=== PATIENT | male | born 1990 | race Caucasian/White ===

== ENCOUNTER → 2021-10-03 12:39 | Outpatient (BNVA) | payer SELFPAY | PROVIDERS: Visit Provider Family Medicine | DX: T67.5XXA Heat exhaustion, unspecified, initial encounter (principal); X30.XXXA Exposure to excessive natural heat, initial encounter; R11.0 Nausea | CPT/HCPCS: 80053 ==

== ENCOUNTER 2022-02-05 09:25 | Emergency (ER) | payer SELFPAY ==
[2022-02-05 09:27] VITALS: BP 162/125; PULSE 92; RESP 15; TEMP 36.6; O2SAT 98; BMI 22.7
--- NOTE | 2022-02-05 09:33 | XRR_ITS ---
PROCEDURE INFORMATION: Exam: XR Chest Exam date and time: 02/05/2022 9:49 AM Age: 31 years old Clinical indication: Cough and dyspnea; Additional info: Dyspnea/cough TECHNIQUE: Imaging protocol: Radiologic exam of the chest. Views: 1 view. COMPARISON: No relevant prior studies available. FINDINGS: Lungs: Normal lung volumes. No interstitial or airspace opacities. Pleural spaces: No pleural effusion. No pneumothorax. Heart/Mediastinum: Normal heart size. Normal mediastinal contour. Midline trachea. Bones/joints: No acute abnormalities. XR/XR chest 1V portable [id number] IMPRESSION: No chest radiographic evidence of acute cardiopulmonary disease.
--- NOTE | 2022-02-05 09:42 | ECG_ITS ---
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 Measurements Intervals [place] Rate: 94 P: 74 RI: 134 QRS: 85 QRSD: 87 T: 20 QT: 337 QTc: 422 Interpretive Statements SINUS RHYTHM No previous ECG available for comparison Electronically Signed On 02-07-2022 23:04:24 CDT by China Elliott M.D. [id number]
--- NOTE | 2022-02-05 09:50 | ED_ITS ---
HPI - Alcohol General: Chief Complaint: Alcohol Stated Complaint: Racing heart Time Seen by Provider: 02/05/22 09:33 Source: patient Mode of arrival: ambulatory History of Present Illness: 31 yo male presents to the ER with compalints of ETOH abuse. He reports he drinks overs a fifth of vodka per day. His last drink was yesterday. He reports he feels like his heart is racing. MD complaint: alcohol dependence Last drink: Hours (ago) (12-15) Chronic alcohol use: Yes Recent trauma: No Associated symptoms: Reports nausea and vomiting; Deny abdominal pain, depression, diaphoresis, hematemesis, involuntary movements, melena, seizure-like activity or suicidal ideation Treatments prior to arrival: none Review of Systems Const: Denies: diaphoresis ENMT: Denies: throat pain, ear or mastoid pain, nasal discharge or nasal congestion Card: Denies: chest pain, edema, dyspnea on exertion or orthopnea Resp: Denies: dyspnea, productive cough or non-productive cough GI: Reports: nausea and vomiting; Denies: abdominal pain, hematemesis or melena : Denies: flank pain, dysuria, urinary frequency or urinary urgency Skin/Breast: Denies: rash or pruritus Neuro: Denies: seizure-like activity or involuntary movements Psych: Denies: depression or suicidal ideation PFSH ED PFSH: Medical History (Updated 02/05/22 @ 09:53 by Sudhir Fan DO) Alcohol abuse Heat exhaustion Social History (Updated 02/05/22 @ 09:54 by Sudhir Fan DO) Smoking and tobacco status: current every day smoker Alcohol intake: current Alcohol intake frequency: 3 or more drinks per day Alcohol type: hard liquor Physical Exam Const: GENERAL APPEARANCE: cooperative and comfortable ORIENTATION/CONSCIOUSNESS: Yes awake, Yes oriented to person, Yes oriented to place and Yes oriented to time HENMT: COMMON NORMALS: normocephalic, atraumatic and hearing grossly normal bilaterally HEAD & SCALP: normocephalic and atraumatic Resp: COMMON NORMALS: normal respiratory effort, No retractions, No use of accessory muscles and clear to auscultation bilaterally AUSCULTATION: clear to auscultation bilaterally Cardio: COMMON NORMALS: regular rate, regular rhythm and No murmurs present (Cardio) RATE: regular rate RHYTHM: regular rhythm GI: COMMON NORMALS: Soft to palpation and No hepatosplenomegaly present AUSCULTATION: Yes normoactive bowel sounds PALPATION: Yes Soft to palpation, No Tenderness to palpation present (GI), No Guarding due to palpation present (GI) and Yes No hepatosplenomegaly present Extremity: COMMON NORMALS: normal to inspection, capillary refill normal, no clubbing, cyanosis or edema, no calf tenderness and no pedal edema Neuro: SENSORIUM/ORIENTATION: Yes oriented to person, Yes oriented to place and Yes oriented to time Skin: COMMON NORMALS: no rashes or lesions noted GENERAL SKIN EXAM: no rashes or lesions noted Course Vital Signs: Vital signs: Vital Signs Temperature 97.9 F 02/05/22 09:27 Pulse Rate 81 02/05/22 10:30 Respiratory Rate 18 02/05/22 10:30 Blood Pressure 149/104 02/05/22 10:30 Pulse Oximetry 95 02/05/22 10:30 Oxygen Delivery Me thod 02/05/22 09:27 MDM - Alcohol Medical Decision Making Patient has no evidence of withdrawal at this time he tells me he plans to stop drinking. I recommend that he follow-up with AA or [facility] he does not appear very interested in pursuing that. We will complete his fluids discharge him home on a chlordiazepoxide taper. Increase p.o. fluids over the next several days. Medical Records I reviewed the patient's medical records. Lab Data I reviewed the patient's lab results. : 02/05/22 09:45 02/05/22 09:45 Radiology Impressions Chest X-Ray 02/05/22 09:33 IMPRESSION: No chest radiographic evidence of acute cardiopulmonary disease. Laboratory Results WBC 5.7 10^3/uL (4.0-10.0) 02/05/22 09:45 RBC 5.38 10^6/uL (4.1-5.3) H 02/05/22 09:45 Hgb 16.1 g/dL (11.7-16.6) 02/05/22 09:45 Hct 47.6 % (42.0-52.0) 02/05/22 09:45 MCV 88.5 fl (80-94) 02/05/22 09:45 MCH 29.9 pg (28.0-34.0) 02/05/22 09:45 MCHC 33.8 g/dL (30.0-36.0) 02/05/22 09:45 RDW 14.2 % (12.1-15.1) 02/05/22 09:45 Plt Count 244 10^3/cmm (130-400) 02/05/22 09:45 MPV 10.3 fL (7.4-10.4) 02/05/22 09:45 Neut % (Auto) 65.6 % 02/05/22 09:45 Lymph % (Auto) 22.2 % 02/05/22 09:45 [place] % (Auto) 10.5 % 02/05/22 09:45 Eos % (Auto) 0.2 % 02/05/22 09:45 Baso % (Auto) 1.1 % 02/05/22 09:45 Neut # (Auto) 3.75 10^3/uL (1.8-7.7) 02/05/22 09:45 Lymph # (Auto) 1.3 10^3/uL (0.8-4.8) 02/05/22 09:45 [place] # (Auto) 0.6 10^3/uL (0.2-0.9) 02/05/22 09:45 Eos # (Auto) 0.0 10^3/uL (0.0-0.8) 02/05/22 09:45 Baso # (Auto) 0.1 10^3/uL (0.0-0.1) 02/05/22 09:45 Nucleated RBC % (auto) 0 % 02/05/22 09:45 Nucleated RBCs # 0.0 /100WBC 02/05/22 09:45 Sodium 132 mmol/L (136-145) L 02/05/22 09:45 Potassium 4.1 mmol/L (3.5-5.1) 02/05/22 09:45 Chloride 94 mmol/L (98-107) L 02/05/22 09:45 Carbon Dioxide 20 mmol/L (22-29) L 02/05/22 09:45 Anion Gap 22.1 (5-19) H 02/05/22 09:45 BUN 14 mg/dL (6-20) 02/05/22 09:45 Creatinine 0.7 mg/dL (0.7-1.2) 02/05/22 09:45 GFR Calculation 129.9 mL/min (90-130) 02/05/22 09:45 Glucose 79 mg/dL (65-115) 02/05/22 09:45 Calculated Osmolality 273 mOsm/kg (285-295) L 02/05/22 09:45 Calcium 10.0 mg/dL (8.5-10.5) 02/05/22 09:45 Total Bilirubin 0.7 mg/dL (0.15-1.2) 02/05/22 09:45 AST 130 U/L (0-40) H 02/05/22 09:45 ALT 240 U/L (0-41) H 02/05/22 09:45 Alkaline Phosphatase 138 U/L (40-130) H 02/05/22 09:45 Total Protein 7.6 g/dL (6.6-8.7) 02/05/22 09:45 Albumin 4.7 g/dL (3.5-5.2) 02/05/22 09:45 Globulin 2.9 g/dL (1.3-4.6) 02/05/22 09:45 Lipase 20 U/L (13-60) 02/05/22 09:45 Ethyl Alcohol < 10 mg/dL (0-10) 02/05/22 09:45 Discharge Plan Discharge Patient Disposition: Home Clinical Impression: Alcohol abuse Prescriptions: New chlordiazepoxide HCl 25 mg capsule 25 mg PO TID Qty: 12 0RF Rx Instructions: 1 p.o. 3 times daily x2 days, 1 p.o. twice daily x2 days, 1 p.o. daily x2 days No Action ondansetron HCl 4 mg tablet 4 mg PO Q8H Qty: 14 0RF Discharge Orders: Discharge ED (Routine); Ordered 02/05/22 Ordered By: Sudhir Fan Discharge Diet: Usual diet Discharge Activity: Resume usual activity Patient Instructions: Abuse of Alcohol (ED), Opioid Safety, Pain Management Activity Restrictions/Additional Instructions: Recommend abstinence from alcohol. Also recommend follow-up with either alcoholics anonymous meetings or seek outpatient treatment through [facility]. Take the chlordiazepoxide taper as prescribed. Coding Level of Care Code ED Cyber Security Consultant for Angieg Fwd Exam Detailed
[2022-02-05 10:08] LABS: Basophils # 0.1 10^3/uL (0.0-0.1); Basophils % 1.1 %; Eosinophils % 0.2 %; Hematocrit 47.6 % (42.0-52.0); Hemoglobin 16.1 g/dL (11.7-16.6); Lymphocytes # 1.3 10^3/uL (0.8-4.8); Lymphocytes % 22.2 %; Mean Corpuscular HGB Conc 33.8 g/dL (30.0-36.0); Mean Corpuscular Hemoglobin 29.9 pg (28.0-34.0); Mean Corpuscular Volume 88.5 fl (80-94); Mean Platelet Volume 10.3 fL (7.4-10.4); Monocytes # 0.6 10^3/uL (0.2-0.9); Monocytes % 10.5 %; Neutrophils # 3.75 10^3/uL (1.8-7.7); Neutrophils % 65.6 %; Nucleated Red Blood Cells % 0 %; Platelet Count 244 10^3/cmm (130-400); Red Blood Count 5.38 10^6/uL (4.1-5.3); Red Cell Distribution Width 14.2 % (12.1-15.1); White Blood Count 5.7 10^3/uL (4.0-10.0)
[2022-02-05] MEDS: famotidine 20 mg/2 mL INJ 40 MG IVP (10:21)
[2022-02-05] MEDS: folic acid 1 MG, multivitamin inj 10 ML, thiamine 100 MG in sodium chloride 0.9% 1,000 ML 252.8 MG IV (10:22)
[2022-02-05] MEDS: sodium chloride 0.9% 1,000 ML 999 ML IV (10:22)
[2022-02-05 10:30] VITALS: BP 149/104; PULSE 81; RESP 18; O2SAT 95
[2022-02-05 10:31] LABS: Alanine Aminotransferase 240 U/L (0-41); Albumin Level 4.7 g/dL (3.5-5.2); Alkaline Phosphatase 138 U/L (40-130); Aspartate Amino Transferase 130 U/L (0-40); Blood Urea Nitrogen 14 mg/dL (6-20); Carbon Dioxide 20 mmol/L (22-29); Chloride 94 mmol/L (98-107); Globulin 2.9 g/dL (1.3-4.6); Glomerular Filtration Rate 129.9 mL/min (90-130); Glucose 79 mg/dL (65-115); Lipase 20 U/L (13-60); Osmolality Calculated 273 mOsm/kg (285-295); Sodium 132 mmol/L (136-145); Total Bilirubin 0.7 mg/dL (0.15-1.2); Total Protein 7.6 g/dL (6.6-8.7)
[2022-02-05 10:38] LABS: Alcohol Level < 10 mg/dL (0-10)
[2022-02-05 10:39] LABS: Anion Gap 22.1 (5-19)
[2022-02-05 10:40] LABS: Potassium 4.1 mmol/L (3.5-5.1)
[2022-02-05 11:15] VITALS: BP 143/85; PULSE 82; RESP 21; O2SAT 97
[2022-02-05 11:30] VITALS: BP 142/88; PULSE 77; RESP 16; O2SAT 98
[2022-02-05 11:45] VITALS: BP 135/85; PULSE 82; RESP 21; O2SAT 97
[2022-02-05 12:00] VITALS: BP 142/80; PULSE 82; RESP 20; O2SAT 97
== END 2022-02-05 12:14 | disposition home or self-care (01) ==
PROVIDERS: Emergency Provider Family Medicine
DX: F10.10 Alcohol abuse, uncomplicated (principal); Y90.0 Blood alcohol level of less than 20 mg/100 ml; F17.200 Nicotine dependence, unspecified, uncomplicated
CPT/HCPCS: 71045; 80053; 80307; 83690; 85025; 93005; 96360; 96361; 99284; J3411; J3490; J7030

== ENCOUNTER → 2022-09-14 13:58 | Outpatient (BNVA) | payer MEDICAID, SELFPAY | PROVIDERS: PCP Family Medicine Adult Medicine; Referring Provider Family Medicine; Visit Provider Orthopaedic Surgery | DX: M25.562 Pain in left knee (principal) | CPT/HCPCS: 73560; 73565 ==

== ENCOUNTER 2023-05-01 14:59 | Emergency (ER) | payer MEDICAID, SELFPAY ==
[2023-05-01 15:04] VITALS: BP 144/95; PULSE 113; RESP 16; TEMP 36.6; O2SAT 98; BMI 23.5
--- NOTE | 2023-05-01 15:44 | ECG_ITS ---
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 Measurements Intervals [place] Rate: 83 P: 56 DC: 152 QRS: 76 QRSD: 92 T: 43 QT: 362 QTc: 428 Interpretive Statements SINUS RHYTHM Compared to ECG 02/05/2022 09:42:13 No significant changes Electronically Signed On 05-02-2023 19:40:32 ACCOUNT RESOLUTION ANALYST by Ryan Heredia M.D. [id number]
[2023-05-01] MEDS: sodium chloride 0.9% 1,000 ML 999 ML IV (15:46)
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
[2023-05-01 15:50] VITALS: BP 142/104; PULSE 97; RESP 16; O2SAT 98
[2023-05-01 15:54] LABS: Basophils # 0.1 10^3/uL (0.0-0.1); Basophils % 1.4 %; Eosinophils % 0.3 %; Hematocrit 45.3 % (37-53); Lymphocytes # 1.8 10^3/uL (0.8-4.8); Lymphocytes % 27.4 %; Mean Corpuscular HGB Conc 34.9 g/dL (30-55); Mean Corpuscular Hemoglobin 31.2 pg (27-33); Mean Corpuscular Volume 89.3 fl (82-101); Mean Platelet Volume 9.9 fL (7.4-10.4); Monocytes # 0.6 10^3/uL (0.2-0.9); Monocytes % 8.6 %; Neutrophils # 4.04 10^3/uL (1.8-7.7); Neutrophils % 62.1 %; Nucleated Red Blood Cells % 0 %; Platelet Count 247 10^3/cmm (157-399); Red Blood Count 5.07 10^6/uL (3.85-5.65); Red Cell Distribution Width 12.6 % (12.1-15.1)
[2023-05-01 16:27] LABS: Alanine Aminotransferase 268 U/L (0-41); Albumin Level 4.7 g/dL (3.5-5.2); Alkaline Phosphatase 94 U/L (40-130); Anion Gap 17.9 (5-19); Aspartate Amino Transferase 142 U/L (0-40); Blood Urea Nitrogen 7 mg/dL (6-20); Calcium 9.7 mg/dL (8.5-10.5); Carbon Dioxide 24 mmol/L (22-29); Chloride 100 mmol/L (98-107); Globulin 2.4 g/dL (1.3-4.6); Glomerular Filtration Rate 154.2 mL/min (90-130); Glucose 117 mg/dL (65-115); Osmolality Calculated 285 mOsm/kg (285-295); Potassium 3.9 mmol/L (3.5-5.1); Sodium 138 mmol/L (136-145); Total Bilirubin 0.3 mg/dL (0.15-1.2); Total Protein 7.1 g/dL (6.6-8.7)
[2023-05-01 16:30] VITALS: BP 134/98; PULSE 98; RESP 16; O2SAT 97
[2023-05-01] MEDS: metoprolol tartrate 1 mg/1 mL SDV 5 mL 2.5 MG IVP (16:43)
--- NOTE | 2023-05-01 16:47 | PC.NURSE ---
Pt ambulatory to the bathroom, states he still feels a little light headed but much improved from earlier
[2023-05-01 17:14] VITALS: BP 139/100; PULSE 92; O2SAT 94
== END 2023-05-01 17:23 | disposition home or self-care (01) ==
PROVIDERS: Emergency Provider Physician Assistant; PCP Family Medicine
DX: R42 Dizziness and giddiness (principal); I10 Essential (primary) hypertension; Z72.0 Tobacco use
CPT/HCPCS: 80053; 85025; 93005; 96374; 99284; J3490; J7030

== ENCOUNTER 2023-05-08 10:13 | Emergency (ER) | payer MEDICAID, SELFPAY ==
[2023-05-08 10:14] VITALS: BP 143/103; PULSE 125; TEMP 36.8; O2SAT 97; BMI 23.5
[2023-05-08 10:19] VITALS: BP 150/110; O2SAT 97
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
[2023-05-08 10:39] LABS: Basophils # 0.1 10^3/uL (0.0-0.1); Basophils % 1.1 %; Hematocrit 48.7 % (37-53); Lymphocytes # 1.3 10^3/uL (0.8-4.8); Lymphocytes % 15.8 %; Mean Corpuscular HGB Conc 35.1 g/dL (30-55); Mean Corpuscular Hemoglobin 31.2 pg (27-33); Mean Corpuscular Volume 88.9 fl (82-101); Mean Platelet Volume 10.2 fL (7.4-10.4); Monocytes # 0.7 10^3/uL (0.2-0.9); Monocytes % 8.3 %; Neutrophils # 6.17 10^3/uL (1.8-7.7); Neutrophils % 74.7 %; Nucleated Red Blood Cells % 0 %; Platelet Count 311 10^3/cmm (157-399); Red Blood Count 5.48 10^6/uL (3.85-5.65); Red Cell Distribution Width 12.9 % (12.1-15.1); White Blood Count 8.27 10^3/uL (3.29-11.43)
[2023-05-08 10:55] LABS: Alanine Aminotransferase 226 U/L (0-41); Alkaline Phosphatase 95 U/L (40-130); Aspartate Amino Transferase 117 U/L (0-40); Blood Urea Nitrogen 9 mg/dL (6-20); Calcium 10.8 mg/dL (8.5-10.5); Carbon Dioxide 21 mmol/L (22-29); Chloride 96 mmol/L (98-107); Creatinine Clr Calc Pharmacy 140.6511; Globulin 3.2 g/dL (1.3-4.6); Glomerular Filtration Rate 129.1 mL/min (90-130); Glucose 105 mg/dL (65-115); Osmolality Calculated 279 mOsm/kg (285-295); Sodium 135 mmol/L (136-145); Total Bilirubin 0.5 mg/dL (0.15-1.2); Total Protein 8.2 g/dL (6.6-8.7)
[2023-05-08] MEDS: sodium chloride 0.9% 1,000 ML 999 ML IV (11:08)
[2023-05-08] MEDS: LORazepam 2 mg/mL INJ 10 mL MDV 1 MG IV (11:09)
[2023-05-08] MEDS: metoprolol tartrate 1 mg/1 mL SDV 5 mL 5 MG IVP (11:10)
[2023-05-08 11:17] LABS: Add Urine Microscopic? NO; Charge for UA Resulting for Rev
[2023-05-08 11:19] VITALS: BP 104/62
[2023-05-08 11:23] LABS: Bilirubin Urine Neg (Negative); Blood Urine Neg (Negative); Glucose Urine UA Norm (Normal); Ketones Urine 1+ (Negative); Nitrate Urine Negative (Negative); Protein Urine Neg (Negative); Urine Appearance Clear (CLEAR); Urine Color Yellow (Yellow); Urobilinogen Urine 1 mg/dL (Negative); pH Urine 8 (5-7)
[2023-05-08 11:24] LABS: Leukocyte Esterase Urine Negative (Negative); Sulfosalicylic Acid Urine Negative (Negative)
[2023-05-08 11:30] VITALS: BP 138/102; PULSE 99; O2SAT 96
[2023-05-08 11:31] LABS: Amphetamines Screen Urine Negative (Negative); Barbiturates Screen Urine Negative (Negative); Benzodiazepines Screen Urine Negative (Negative); Cocaine Screen Urine Negative (Negative); Opiate Screen Urine Negative (Negative); PCP Screen Urine Negative (Negative); THC Screen Urine Positive (Negative)
[2023-05-08 12:30] VITALS: BP 125/100
== END 2023-05-08 12:39 | disposition home or self-care (01) ==
PROVIDERS: Emergency Provider Physician Assistant; PCP Family Medicine
DX: I10 Essential (primary) hypertension (principal); F10.930 Alcohol use, unspecified with withdrawal, uncomplicated
CPT/HCPCS: 80053; 80306; 81003; 85025; 96374; 96375; 99284; J2060; J3490; J7030

== ENCOUNTER 2023-07-23 14:43 | Emergency (ER) | payer MEDICAID, SELFPAY ==
--- NOTE | 2023-07-23 14:43 | XRR_ITS ---
PROCEDURE INFORMATION: Exam: XR Right Ankle Exam date and time: 07/23/2023 2:53 PM Age: 32 years old Clinical indication: Injury or trauma; Other: Turned RT ankle; Sprain or strain; Right TECHNIQUE: Imaging protocol: Radiologic exam of the right ankle. Views: 3 or more views. COMPARISON: No relevant prior studies available. FINDINGS: Bones/joints: Normal. Soft tissues: Normal. XR/XR ankle RT min 3V* [id number] IMPRESSION: No acute findings.
[2023-07-23 14:45] VITALS: PULSE 86; RESP 17; TEMP 36.6; O2SAT 96; BMI 22.7
--- NOTE | 2023-07-23 15:27 | XRR_ITS ---
PROCEDURE INFORMATION: Exam: XR Right Foot Exam date and time: 07/23/2023 3:31 PM Age: 32 years old Clinical indication: Injury or trauma; Other: Turned RT foot; Sprain or strain; Right TECHNIQUE: Imaging protocol: Radiologic exam of the right foot. Views: 3 or more views. COMPARISON: CR (LOW EXM, ) 07/23/2023 2:53 PM FINDINGS: Bones/joints: Normal. Soft tissues: Normal. XR/XR foot RT min 3V* [id number] IMPRESSION: No acute findings.
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
[2023-07-23] MEDS: HYDROcodone-acetaminophen 5-325 mg Tablet 1 TAB PO (16:06)
--- NOTE | 2023-07-23 16:11 | PC.NURSE ---
PATIENT STATES HE DOES NOT WANT THE SPLINT OR CRUTCHES. NURSE EDUCATED ON REFUSAL AND PATIENT VERBALIZED UNDERSTANDING. PATIENT STATES HE JUST DOES NOT WANT TO IMPEDE ON HIS CAREER.
--- NOTE | 2023-07-24 07:29 | DCPLANNER ---
A message was sent to podiatry on 07/24/23 at 0729. [facility] to contact patient for appt.
== END 2023-07-23 16:22 | disposition home or self-care (01) ==
PROVIDERS: Emergency Provider Emergency Medicine; PCP Family Medicine
DX: S93.401A Sprain of unspecified ligament of right ankle, initial encounter (principal); S96.911A Strain of unspecified muscle and tendon at ankle and foot level, right foot, initial encounter; F17.210 Nicotine dependence, cigarettes, uncomplicated; I10 Essential (primary) hypertension; X50.1XXA Overexertion from prolonged static or awkward postures, initial encounter
CPT/HCPCS: 73610; 73630; 99283

== ENCOUNTER 2023-07-24 14:18 | Emergency (ER) | payer MEDICAID, SELFPAY ==
[2023-07-24 14:25] VITALS: BP 133/94; PULSE 97; RESP 16; TEMP 36.9; O2SAT 97; BMI 22.7
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
[2023-07-24] MEDS: HYDROcodone-acetaminophen 5-325 mg Tablet 1 TAB PO (15:29)
--- NOTE | 2023-07-25 15:20 | PC.SOCIAL ---
Ortho Referral Referral to clinic at this time. Clinic to contact patient with appt date/time.
== END 2023-07-24 15:39 | disposition home or self-care (01) ==
PROVIDERS: Emergency Provider Emergency Medicine; PCP Family Medicine
DX: S93.401A Sprain of unspecified ligament of right ankle, initial encounter (principal); S96.911A Strain of unspecified muscle and tendon at ankle and foot level, right foot, initial encounter; I10 Essential (primary) hypertension; Z72.0 Tobacco use; X50.1XXA Overexertion from prolonged static or awkward postures, initial encounter
CPT/HCPCS: 99283; E0114

== ENCOUNTER → 2023-07-26 08:05 | Outpatient (BNVA) | payer MEDICAID, SELFPAY | PROVIDERS: PCP Family Medicine; Visit Provider Podiatrist Foot & Ankle Surgery | DX: V29.39XA Other motorcycle (driver) (passenger) injured in unspecified nontraffic accident, initial encounter (principal); S99.921A Unspecified injury of right foot, initial encounter | CPT/HCPCS: 73630 ==

== ENCOUNTER 2023-08-01 13:36 | Outpatient (CLI) | payer MEDICAID, SELFPAY ==
--- NOTE | 2023-08-01 14:00 | MR_ITS ---
WS: [id number] MRI RIGHT FOOT WITHOUT CONTRAST. COMPARISON: 07/26/2023 Multiplanar, multisequence imaging is performed without contrast. Numerous signal abnormalities are noted within the midfoot. Marrow edema and abnormal signal in the m idfoot involves the medial, intermediate and lateral cuneiforms along with the cuboid. Additional mar row edema involving the proximal second, third and fourth metatarsals. There is loss of the normal ov erlying cortex and I suspect there are several fractures along the tarsometatarsal articulation. High ly suspicious for fractures involving the second through fourth metatarsal bases. There is also abnormal signal along the Lisfranc ligament. The dorsal band is not visualized as a sep arate structure. There is intermediate increased T2 signal in the dorsal band. Abnormal signal is mor e distinct involving the interosseous band. There does appear to be a tear. The tear extends into the plantar portion of the ligament. There is a large amount of soft tissue edema particularly over the dorsal surface of the foot. There is focal artifact from metallic foreign body between the first and second toes. IMPRESSION: 1. Significant injury within the midfoot along the Lisfranc articulation. 2. There is extensive marrow edema involving all 3 cuneiforms, the cuboid and the second through fou rth proximal metatarsals. Fractures are identified in the proximal metatarsals. CT evaluation of the foot would better define the fracture distribution more specifically. 3. Abnormal signal in all 3 bands of the Lisfranc ligament. The dorsal band is small caliber with on ly intermediate signal. More significant tears involving the intraosseous band in the plantar band. 4. Large amount of soft tissue edema surrounding the midfoot.
== END 2023-08-01 13:37 | disposition home or self-care (01) ==
LOC: RAD 13:36
PROVIDERS: PCP Family Medicine; Visit Provider Podiatrist Foot & Ankle Surgery
DX: S99.921A Unspecified injury of right foot, initial encounter (principal); S93.621A Sprain of tarsometatarsal ligament of right foot, initial encounter; V29.39XA Other motorcycle (driver) (passenger) injured in unspecified nontraffic accident, initial encounter; S92.321A Displaced fracture of second metatarsal bone, right foot, initial encounter for closed fracture; S92.331A Displaced fracture of third metatarsal bone, right foot, initial encounter for closed fracture; S92.341A Displaced fracture of fourth metatarsal bone, right foot, initial encounter for closed fracture
CPT/HCPCS: 73718

== ENCOUNTER 2023-08-04 05:39 | Day surgery (SDC) | payer MEDICAID, SELFPAY ==
[2023-08-04] VITALS (11 sets, daily range): BP systolic 129–159; BP diastolic 88–114; PULSE 80–91; RESP 12–18; TEMP 36.7–37.2; O2SAT 92–96; BMI 22.7
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
[2023-08-04] MEDS: sodium chloride 0.9% 1,000 ML 30 ML IV (06:09)
[2023-08-04] MEDS: CELEcoxib 200 mg Capsule 400 MG PO (06:09)
[2023-08-04] MEDS: pregabalin 150 mg Capsule 300 MG PO (06:11)
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
--- NOTE | 2023-08-04 06:36 | P.HPUD_ITS ---
Surgery/Procedure H&P Update DATE OF PROCEDURE: August 04, 2023 DATE H&P PERFORMED: 08/01/23 H&P UPDATE INFORMATION: I have reviewed H&P completed within last 30 days, I have examined patient prior to procedure, No changes to prior documentation and [place] [facility] [place] indicated PREOP DIAGNOSIS: Lisfranc fracture, third and fourth metatarsal fracture all right foot. PLANNED PROCEDURE: Operation Date: 08/04/23 07:00 Proposed Procedures p Arthrodesis Foot midfoot right(Right) - Macho Morfin DPM s ORIF Metatarsal/ right third metatarsal fracture and right fourth metatarsal fracture(Right) - Macho Morfin DPM
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
[2023-08-04] MEDS: clindamycin 600 MG/50 ML PREMIX 100 MG IV (07:07)
[2023-08-04] MEDS: BUPivacaine 0.5% INJ 30 mL INJECTION (07:56)
[2023-08-04] MEDS: BUPivacaine liposome 13.3 mg/mL SDV 10 mL 266 MG INJECTION (07:57)
[2023-08-04] MEDS: fentaNYL 50 mcg/mL INJ 2mL IVP (08:45)
[2023-08-04] MEDS: HYDROcodone-acetaminophen 10-325 mg Tablet 1 TAB PO (09:14)
--- NOTE | 2023-08-04 09:50 | ANE.PACU2 ---
Inpatient post-anesthesia follow up: Vital signs: Temperature 98.2 F Pulse Rate 84 Respiratory Rate 16 Blood Pressure 146/97 Pulse Oximetry 95 Oxygen Delivery Me thod Room Air Oxygen Flow Rate Fraction of Inspir ed Oxygen Hydration adequate: Yes Nausea and vomiting: No Mental status: Baseline Additional Comments: no apparent anesthetic complications noted
--- NOTE | 2023-08-04 10:10 | W.PM.BPON ---
Date of Procedure: 06/30/23 Surgeon: Macho Morfin DPM Telecommunications Repairer(s): Chuck ABREU Procedure(s) performed: Right midfoot fusion, right third and fourth metatarsal fracture ORIF. Findings of the procedure(s): Lisfranc fracture dislocation, fracture third and fourth metatarsal right foot. Estimated blood loss: 5 mL Specimen(s) removed: No specimens Post-operative diagnosis: Third and fourth metatarsal fracture right foot. Right foot Lisfranc dislocation. No complications with anesthesia or surgery.
== END 2023-08-04 09:40 | disposition home or self-care (01) ==
PROVIDERS: PCP Family Medicine; Visit Provider Podiatrist Foot & Ankle Surgery
PROC: (CPT 28740; principal; 2023-08-04 07:00)
PROC: (CPT 28485; 2023-08-04 07:00)
DX: S92.334A Nondisplaced fracture of third metatarsal bone, right foot, initial encounter for closed fracture (principal); S92.341A Displaced fracture of fourth metatarsal bone, right foot, initial encounter for closed fracture; X50.1XXA Overexertion from prolonged static or awkward postures, initial encounter; J44.9 Chronic obstructive pulmonary disease, unspecified; F17.210 Nicotine dependence, cigarettes, uncomplicated; I10 Essential (primary) hypertension
CPT/HCPCS: 28485 ×2; 28730; 73620; 76000; C1713; C9290; J1100; J2250; J2405; J2704; J3010; J3490; J7030

== ENCOUNTER → 2023-08-17 08:05 | Outpatient (BNVA) | payer SELFPAY | PROVIDERS: PCP Family Medicine; Visit Provider Podiatrist Foot & Ankle Surgery | DX: Z98.890 Other specified postprocedural states (principal); S92.334D Nondisplaced fracture of third metatarsal bone, right foot, subsequent encounter for fracture with routine healing; S92.344D Nondisplaced fracture of fourth metatarsal bone, right foot, subsequent encounter for fracture with routine healing; M25.374 Other instability, right foot; X58.XXXD Exposure to other specified factors, subsequent encounter | CPT/HCPCS: 73630 ==

== ENCOUNTER → 2023-08-31 14:12 | Outpatient (BNVA) | payer SELFPAY | PROVIDERS: PCP Family Medicine; Visit Provider Podiatrist Foot & Ankle Surgery | DX: Z98.890 Other specified postprocedural states (principal); S92.334D Nondisplaced fracture of third metatarsal bone, right foot, subsequent encounter for fracture with routine healing; S92.344D Nondisplaced fracture of fourth metatarsal bone, right foot, subsequent encounter for fracture with routine healing; M25.374 Other instability, right foot; X58.XXXD Exposure to other specified factors, subsequent encounter | CPT/HCPCS: 73630 ==

== ENCOUNTER → 2023-09-14 13:06 | Outpatient (BNVA) | payer SELFPAY | PROVIDERS: PCP Family Medicine; Visit Provider Podiatrist Foot & Ankle Surgery | DX: Z98.890 Other specified postprocedural states (principal) | CPT/HCPCS: 73630 ==

== ENCOUNTER → 2023-09-27 10:54 | Outpatient (BNVA) | payer SELFPAY | PROVIDERS: PCP Family Medicine; Visit Provider Podiatrist Foot & Ankle Surgery | DX: Z98.890 Other specified postprocedural states (principal) | CPT/HCPCS: 73630 ==

== ENCOUNTER 2024-07-26 18:25 | Emergency (ER) | payer SELFPAY ==
[2024-07-26 18:32] VITALS: BP 124/87; PULSE 88; RESP 18; TEMP 36.7; O2SAT 95; BMI 21.9
[2024-07-26 18:44] LABS: Glucose Point of Care 119 mg/dL (70-110)
--- NOTE | 2024-07-26 18:58 | PC.NURSE ---
Nurse Lorena RN notified of patient's presentation, such as dizziness, shaking, and last alcoholic beverage consumed, as well as patient's arrival to room.
--- NOTE | 2024-07-26 19:27 | CTR_ITS ---
PROCEDURE INFORMATION: Exam: CTA Head With Contrast, Arteriography Exam date and time: 07/26/2024 7:49 PM Age: 33 years old Clinical indication: Numbness and visual disturbance; Other visual defect; Prior surgery; Surgery date: 6+ months; C/O RT eye blurriness with facial numbness and hypertension. History of c1 fracture with halo fixation. ; Additional info: R eye blurry vision, R sided numbness, nih 2 TECHNIQUE: Imaging protocol: Computed tomographic angiography of the head with contrast. Exam focused on the arteries. 3D rendering (Not supervised by radiologist): MIP and/or 3D reconstructed images were created by the technologist. Radiation optimization: All CT scans at this facility use at least one of these dose optimization techniques: automated exposure control; mA and/or kV adjustment per patient size (includes targeted exams where dose is matched to clinical indication); or iterative reconstruction. Contrast material: OMNI 350; Contrast volume: 100 ml; Contrast route: INTRAVENOUS (IV); COMPARISON: No relevant prior studies available. RADIATION DOSE METRICS: Total DLP (mGy-cm): 1010.72 FINDINGS: ANTERIOR CIRCULATION: Right internal carotid artery: Intracranial segment is patent with no significant stenosis. No aneurysm. Right middle cerebral artery: No occlusion or significant stenosis. No aneurysm. Right anterior cerebral artery: No occlusion or significant stenosis. No aneurysm. Left internal carotid artery: Intracranial segment is patent with no significant stenosis. No aneurysm. Left middle cerebral artery: No occlusion or significant stenosis. No aneurysm. Left anterior cerebral artery: No occlusion or significant stenosis. No aneurysm. POSTERIOR CIRCULATION: Right vertebral artery: No occlusion or significant stenosis. No aneurysm. Left vertebral artery: No occlusion or significant stenosis. No aneurysm. Basilar artery: No occlusion or significant stenosis. No aneurysm. Right posterior cerebral artery: No occlusion or significant stenosis. No aneurysm. Left posterior cerebral artery: No occlusion or significant stenosis. No aneurysm. Brain: No definite mass, mass effect, or midline shift. Cerebral ventricles: No ventriculomegaly. Bones/joints: Unremarkable. No acute fracture. Soft tissues: Unremarkable. PROCEDURE INFORMATION: Exam: CTA Neck With Contrast Exam date and time: 07/26/2024 7:49 PM Age: 33 years old Clinical indication: Numbness and visual disturbance; Other visual defect; Prior surgery; Surgery date: 6+ months; C/O RT eye blurriness with facial numbness and hypertension. History of c1 fracture with halo fixation. ; Additional info: R eye blurry vision, R sided numbness, nih 2 TECHNIQUE: Imaging protocol: Computed tomographic angiography of the neck with contrast. Exam focused on the cervical segments of the vasculature. 3D rendering (Not supervised by radiologist): MIP and/or 3D reconstructed images were created by the technologist. Radiation optimization: All CT scans at this facility use at least one of these dose optimization techniques: automated exposure control; mA and/or kV adjustment per patient size (includes targeted exams where dose is matched to clinical indication); or iterative reconstruction. Contrast material: OMNI 350; Contrast volume: 100 ml; Contrast route: INTRAVENOUS (IV); COMPARISON: CR XR chest 1V portable [id number] 02/05/2022 9:49 AM RADIATION DOSE METRICS: Total DLP (mGy-cm): 1010.72 FINDINGS: Right common carotid artery: No stenosis. No dissection or occlusion. Right internal carotid artery: No stenosis of the extracranial segment. No dissection or occlusion. Right external carotid artery: No occlusion or stenosis of the origin. Left common carotid artery: No stenosis. No dissection or occlusion. Left internal carotid artery: No stenosis of the extracranial segment. No dissection or occlusion. Left external carotid artery: No occlusion or stenosis of the origin. Right vertebral artery: No stenosis. No dissection or occlusion. Left vertebral artery: No stenosis. No dissection or occlusion. Soft tissues: Normal. No significant soft tissue swelling. Bones/joints: No acute fracture. CT/CT angio headneck* [id number] IMPRESSION: No large vessel stenosis or occlusion. IMPRESSION: No stenosis or occlusion. REFERENCES: NASCET CRITERIA. The degree of stenosis in the cervical segment of the internal carotid artery is based on NASCET criteria. Normal is no stenosis. Mild is less than 50% stenosis. Moderate is 50-69% stenosis. Severe is 70% to 99% stenosis. Total occlusion is no detectable patent lumen.
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
[2024-07-26 19:51] LABS: Basophils # 0.1 10^3/uL (0.0-0.1); Basophils % 1.3 %; Eosinophils # 0.1 10^3/uL (0.0-0.8); Eosinophils % 1.9 %; Hematocrit 43.2 % (37-53); Lymphocytes # 2.2 10^3/uL (0.8-4.8); Lymphocytes % 47.3 %; Mean Corpuscular HGB Conc 33.8 g/dL (30-55); Mean Corpuscular Hemoglobin 31.3 pg (27-33); Mean Corpuscular Volume 92.7 fl (82-101); Mean Platelet Volume 10.5 fL (7.4-10.4); Monocytes # 0.6 10^3/uL (0.2-0.9); Monocytes % 12.3 %; Neutrophils # 1.72 10^3/uL (1.8-7.7); Nucleated Red Blood Cells % 0 %; Platelet Count 191 10^3/cmm (157-399); Red Blood Count 4.66 10^6/uL (3.85-5.65); Red Cell Distribution Width 13.1 % (12.1-15.1); White Blood Count 4.65 10^3/uL (3.29-11.43)
[2024-07-26] MEDS: iohexol 350 mg/mL 500 mL Btl (per mL) IV (19:52)
[2024-07-26 20:07] LABS: Alanine Aminotransferase 284 U/L (0-41); Albumin Level 4.1 g/dL (3.5-5.2); Alcohol Level 271 mg/dL (0-10); Alkaline Phosphatase 115 U/L (40-130); Anion Gap 19.5 (5-19); Aspartate Amino Transferase 152 U/L (0-40); Blood Urea Nitrogen 9 mg/dL (6-20); Calcium 8.9 mg/dL (8.5-10.5); Carbon Dioxide 23 mmol/L (22-29); Chloride 105 mmol/L (98-107); Creatinine Clr Calc Pharmacy 158.1349; Globulin 2.6 g/dL (1.3-4.6); Glomerular Filtration Rate 153.3 mL/min (90-130); Glucose 98 mg/dL (65-115); Osmolality Calculated 297 mOsm/kg (285-295); Potassium 3.5 mmol/L (3.5-5.1); Sodium 144 mmol/L (136-145); Total Bilirubin 0.2 mg/dL (0.15-1.2); Total Protein 6.7 g/dL (6.6-8.7)
[2024-07-26] MEDS: sodium chloride 0.9% 1,000 ML 999 ML IV (20:10)
[2024-07-26 20:17] VITALS: BP 118/94; PULSE 71; O2SAT 93
[2024-07-26 20:22] LABS: Amphetamines Screen Urine Negative (Negative); Barbiturates Screen Urine Negative (Negative); Benzodiazepines Screen Urine Negative (Negative); Cocaine Screen Urine Negative (Negative); Opiate Screen Urine Negative (Negative); PCP Screen Urine Negative (Negative); THC Screen Urine Positive (Negative)
[2024-07-26 21:32] VITALS: BP 118/85; PULSE 69; RESP 16; O2SAT 94
[2024-07-26 21:54] VITALS: BP 118/85; PULSE 80; RESP 16; O2SAT 95
== END 2024-07-26 21:53 | disposition home or self-care (01) ==
PROVIDERS: Emergency Provider Emergency Medicine; PCP Family Medicine
DX: H53.8 Other visual disturbances (principal); R20.2 Paresthesia of skin; F10.129 Alcohol abuse with intoxication, unspecified; Y90.8 Blood alcohol level of 240 mg/100 ml or more; F12.90 Cannabis use, unspecified, uncomplicated; Z72.0 Tobacco use; I10 Essential (primary) hypertension
CPT/HCPCS: 36416; 70496; 70498; 80053; 80306; 80307; 82962; 85025; 99284; J7030

== ENCOUNTER 2024-07-31 10:25 | Inpatient (IN) | payer SELFPAY ==
[2024-07-31 10:30] VITALS: BP 129/92; PULSE 82; TEMP 36.6; O2SAT 99; BMI 23.5
--- NOTE | 2024-07-31 10:38 | ECG_ITS ---
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 Measurements Intervals [place] Rate: 77 P: 128 IN: 142 QRS: 132 QRSD: 97 T: -35 QT: 365 QTc: 415 Interpretive Statements SINUS RHYTHM LEFT POSTERIOR FASCICULAR BLOCK [QRS AXIS > 109, INFERIOR Q] NONSPECIFIC T-WAVE ABNORMALITY Compared to ECG 05/01/2023 16:06:42 Left posterior fascicular block now present T-wave abnormality now present Electronically Signed On 07-31-2024 21:25:25 CDT by Ryan Heredia M.D. [email or web address]
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
[2024-07-31 11:19] LABS: Bilirubin Urine 1+ (Negative); Blood Urine Negative (Negative); Glucose Urine UA Negative (Normal); Ketones Urine 2+ (Negative); Leukocyte Esterase Urine Negative (Negative); Nitrate Urine Negative (Negative); Protein Urine 1+ (Negative); Specific Gravity, Urine 1.024 (1.005-1.030); Urine Appearance Clear (CLEAR)
[2024-07-31 11:24] LABS: Bacteria Urine None Seen /hpf; Hyaline Casts Urine 17.37 /lpf; RBC Urine 0-2 /hpf (0-2); Squamous Epithelial Cell Urine 0-5 /hpf (0-5); WBC Urine 0-5 /hpf (0-5)
[2024-07-31 11:25] LABS: UA Slide Review UA Slide Review Perf; Urine Color Dark Yellow (Yellow)
[2024-07-31 11:26] LABS: Add Urine Culture? No; Amphetamines Screen Urine Negative (Negative); Barbiturates Screen Urine Negative (Negative); Benzodiazepines Screen Urine Negative (Negative); Cocaine Screen Urine Negative (Negative); Opiate Screen Urine Negative (Negative); PCP Screen Urine Negative (Negative); THC Screen Urine Positive (Negative)
[2024-07-31 11:36] LABS: Basophils # 0.1 10^3/uL (0.0-0.1); Basophils % 1.7 %; Eosinophils % 0.6 %; Hematocrit 44.7 % (37-53); Lymphocytes # 1.3 10^3/uL (0.8-4.8); Lymphocytes % 25.9 %; Mean Corpuscular Hemoglobin 31.7 pg (27-33); Mean Corpuscular Volume 93.3 fl (82-101); Mean Platelet Volume 10.5 fL (7.4-10.4); Monocytes # 0.7 10^3/uL (0.2-0.9); Monocytes % 14.1 %; Neutrophils # 2.78 10^3/uL (1.8-7.7); Neutrophils % 57.5 %; Nucleated Red Blood Cells % 0 %; Platelet Count 226 10^3/cmm (157-399); Red Blood Count 4.79 10^6/uL (3.85-5.65); Red Cell Distribution Width 13.1 % (12.1-15.1); White Blood Count 4.83 10^3/uL (3.29-11.43)
[2024-07-31 11:48] LABS: INR 0.96 (0.8-1.2)
[2024-07-31 12:06] LABS: Acetaminophen < 5.0 ug/mL (10-30); Alanine Aminotransferase 242 U/L (0-41); Albumin Level 4.4 g/dL (3.5-5.2); Alcohol Level 146 mg/dL (0-10); Alkaline Phosphatase 92 U/L (40-130); Anion Gap 22.6 (5-19); Aspartate Amino Transferase 174 U/L (0-40); Blood Urea Nitrogen 12 mg/dL (6-20); Carbon Dioxide 23 mmol/L (22-29); Chloride 97 mmol/L (98-107); Creatinine Clr Calc Pharmacy 139.3242; Globulin 2.8 g/dL (1.3-4.6); Glomerular Filtration Rate 128.3 mL/min (90-130); Glucose 80 mg/dL (65-115); Lipase 51 U/L (13-60); Osmolality Calculated 287 mOsm/kg (285-295); Potassium 3.6 mmol/L (3.5-5.1); Salicylate < 0.3 mg/dL (3-10); Sodium 139 mmol/L (136-145); Total Bilirubin 0.8 mg/dL (0.15-1.2); Total Protein 7.2 g/dL (6.6-8.7)
[2024-07-31 12:54] VITALS: RESP 18
[2024-07-31] MEDS: LORazepam 1 mg Tablet PO (12:54)
--- NOTE | 2024-07-31 13:44 | PC.NURSE ---
report called to Yaya in [facility], no further questions.
[2024-07-31] MEDS: lidocaine 2% viscous 15 ML, aluminum-mag hydrox-simethicon 30 ML, sucralfate oral liq 1 GM PO (13:59)
[2024-07-31 15:23] VITALS: BP 130/91; PULSE 89; RESP 18; TEMP 36.6; O2SAT 98
[2024-07-31] MEDS: acetaminophen 325 mg Tablet 650 MG PO (15:45)
[2024-07-31 16:00] VITALS: BP 129/84; PULSE 69; RESP 18; TEMP 37.1; O2SAT 97
[2024-07-31] MEDS: LORazepam 2 mg Tablet PO ×2 (16:25→20:22)
[2024-07-31] MEDS: amlodipine 5 mg Tablet PO (16:25)
[2024-07-31] MEDS: calcium carbonate 500 mg Chew Tablet 1000 MG PO (16:26)
--- NOTE | 2024-07-31 16:26 | PC.NURSE ---
pt states he does not want inpatient rehab for alcohol, states he doesn't want to miss a lot of work. he thinks that I am so disgusted with myself that once I get over the initial detox I should be fine.
[2024-07-31 18:00] VITALS: RESP 18
[2024-07-31 20:00] VITALS: BP 122/74; PULSE 88; RESP 18; TEMP 37.2; O2SAT 95
[2024-08-01] VITALS: BP 165/94; PULSE 96; RESP 16; O2SAT 96
[2024-08-01 04:00] VITALS: BP 143/97; PULSE 104; RESP 18; O2SAT 97
[2024-08-01] MEDS: hyDROXYzine 25 mg Capsule 50 MG PO (04:50)
[2024-08-01 08:00] VITALS: BP 144/89; PULSE 117; RESP 17; TEMP 36.6; O2SAT 96
[2024-08-01] MEDS: thiamine 100 mg Tablet PO (08:16)
[2024-08-01] MEDS: LORazepam 2 mg Tablet PO (08:16)
[2024-08-01] MEDS: metoprolol tartrate 25 mg Tablet PO (08:16)
[2024-08-01] MEDS: multivitamin therapeutic Tablet 1 TAB PO (08:16)
[2024-08-01] MEDS: folic acid 1 mg Tablet PO (08:16)
[2024-08-01] MEDS: amlodipine 5 mg Tablet PO (08:16)
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
[2024-08-01 12:00] VITALS: BP 132/93; PULSE 96; RESP 18; TEMP 36.9; O2SAT 97
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
[2024-08-01 13:35] VITALS: BP 132/93; PULSE 106; RESP 18; TEMP 36.9; O2SAT 97
== END 2024-08-01 14:49 | disposition home or self-care (01) | DRG 897 ==
LOC: ER 12:43 → NP 13:29
PROVIDERS: Admitting Provider Psychiatry & Neurology Psychiatry; Emergency Provider Emergency Medicine; PCP Family Medicine; Visit Provider Psychiatry & Neurology Psychiatry
DX: F10.229 Alcohol dependence with intoxication, unspecified (principal); F10.239 Alcohol dependence with withdrawal, unspecified; Y90.6 Blood alcohol level of 120-199 mg/100 ml; I10 Essential (primary) hypertension; F17.210 Nicotine dependence, cigarettes, uncomplicated
CPT/HCPCS: 36415; 80053; 80306; 80307; 81001; 83690; 84443; 85025; 85610; 85730; 93005; 97165; 99285; J9999

== ENCOUNTER 2024-08-31 01:22 | Emergency (ER) | payer SELFPAY ==
[2024-08-31 01:30] VITALS: BP 141/95; PULSE 81; RESP 18; TEMP 36.6; O2SAT 98; BMI 23.5
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
[2024-08-31 02:54] LABS: Basophils # 0.1 10^3/uL (0.0-0.1); Basophils % 1.4 %; Eosinophils % 0.5 %; Hematocrit 46.4 % (37-53); Lymphocytes # 1.5 10^3/uL (0.8-4.8); Lymphocytes % 25.8 %; Mean Corpuscular HGB Conc 34.3 g/dL (30-55); Mean Corpuscular Hemoglobin 31.4 pg (27-33); Mean Corpuscular Volume 91.5 fl (82-101); Mean Platelet Volume 10.4 fL (7.4-10.4); Monocytes # 0.6 10^3/uL (0.2-0.9); Monocytes % 10.1 %; Neutrophils # 3.48 10^3/uL (1.8-7.7); Neutrophils % 61.8 %; Nucleated Red Blood Cells % 0 %; Platelet Count 188 10^3/cmm (157-399); Red Blood Count 5.07 10^6/uL (3.85-5.65); Red Cell Distribution Width 12.7 % (12.1-15.1); White Blood Count 5.63 10^3/uL (3.29-11.43)
[2024-08-31 03:05] LABS: INR 0.95 (0.8-1.2)
[2024-08-31 03:08] LABS: Alanine Aminotransferase 184 U/L (0-41); Albumin Level 4.3 g/dL (3.5-5.2); Alcohol Level 283 mg/dL (0-10); Alkaline Phosphatase 99 U/L (40-130); Anion Gap 21.5 (5-19); Aspartate Amino Transferase 158 U/L (0-40); Blood Urea Nitrogen 10 mg/dL (6-20); Calcium 8.9 mg/dL (8.5-10.5); Carbon Dioxide 26 mmol/L (22-29); Chloride 99 mmol/L (98-107); Creatinine Clr Calc Pharmacy 139.3242; Globulin 3.1 g/dL (1.3-4.6); Glomerular Filtration Rate 128.3 mL/min (90-130); Glucose 99 mg/dL (65-115); Osmolality Calculated 295 mOsm/kg (285-295); Potassium 3.5 mmol/L (3.5-5.1); Sodium 143 mmol/L (136-145); Total Bilirubin 0.5 mg/dL (0.15-1.2); Total Protein 7.4 g/dL (6.6-8.7)
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
[2024-08-31 03:28] VITALS: RESP 18
[2024-08-31] MEDS: morphine 4 mg/mL SDV 1 mL IVP (03:28)
[2024-08-31] MEDS: ondansetron 2 mg/ML SDV 2 mL 4 MG IVP (03:29)
[2024-08-31 03:38] VITALS: BP 141/95; PULSE 76; O2SAT 98
== END 2024-08-31 03:41 | disposition short-term general hospital (02) ==
PROVIDERS: Emergency Provider Emergency Medicine; PCP Family Medicine
DX: S06.6XAA Traumatic subarachnoid hemorrhage with loss of consciousness status unknown, initial encounter (principal); S06.5XAA Traumatic subdural hemorrhage with loss of consciousness status unknown, initial encounter; S06.33AA Contusion and laceration of cerebrum, unspecified, with loss of consciousness status unknown, initial encounter; Y04.2XXA Assault by strike against or bumped into by another person, initial encounter; F10.129 Alcohol abuse with intoxication, unspecified; Y90.8 Blood alcohol level of 240 mg/100 ml or more; R51.9 Headache, unspecified; M54.2 Cervicalgia; Z72.0 Tobacco use; I10 Essential (primary) hypertension
CPT/HCPCS: 70450; 72125; 80053; 80307; 85025; 85610; 96374; 96375; 99285; J2270; J2405

== ENCOUNTER 2024-09-11 18:59 | Emergency (ER) | payer SELFPAY ==
[2024-09-11 19:00] VITALS: BP 116/91; PULSE 96; RESP 14; TEMP 36.5; O2SAT 93; BMI 24.0
--- NOTE | 2024-09-11 19:10 | CTR_ITS ---
PROCEDURE INFORMATION: Exam: CT Head Without Contrast Exam date and time: 09/11/2024 7:22 PM Age: 33 years old Clinical indication: Injury or trauma; Fall; Blunt trauma (contusions or hematomas); Consciousness not specified; Prior surgery; Surgery date: 6+ months; Surgery type: Per PT c1 FX x1.5 yrs ago, had a halo; Additional info: Fall, head injury TECHNIQUE: Imaging protocol: Computed tomography of the head without contrast. Radiation optimization: All CT scans at this facility use at least one of these dose optimization techniques: automated exposure control; mA and/or kV adjustment per patient size (includes targeted exams where dose is matched to clinical indication); or iterative reconstruction. COMPARISON: CT head wo con* [id number] 08/31/2024 2:11 AM RADIATION DOSE METRICS: Total DLP (mGy-cm): 1087.54 FINDINGS: Brain: Very small residual subdural hematoma overlying the left tentorium remains. Very small residual amount of subarachnoid hemorrhage along the left middle cranial fossa remains. Small amount of subarachnoid hemorrhage along the anterior interhemispheric fissure has since resolved. The densities along the anterior inferior frontal lobes has since resolved. There is an area of hypoattenuation involving the medial aspect of the left temporal lobe which may be related to contusive changes although infarct is not entirely excluded. No mass effect or midline shift. Cerebral ventricles: No ventriculomegaly. Paranasal sinuses: Visualized sinuses are unremarkable. No fluid levels. Mastoid air cells: Visualized mastoid air cells are well aerated. Bones: Unremarkable. No acute fracture. Soft tissues: There is some left parietal and frontal scalp swelling remaining. Right occipital scalp swelling essence improved. [place] CT/CT head wo con* [id number] IMPRESSION: 1. Multi compartment hemorrhages within the bilateral supratentorial brain described above most of which have improved and others have resolved. 2. Interval increased hypoattenuation along the medial aspect of the left frontal lobe related to either contusive edema or developing infarct. Consider follow up with a brain MRI examination.
--- NOTE | 2024-09-11 19:10 | ECG_ITS ---
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
[2024-09-11 20:07] LABS: Basophils # 0.1 10^3/uL (0.0-0.1); Eosinophils # 0.1 10^3/uL (0.0-0.8); Eosinophils % 1.3 %; Hematocrit 48.1 % (37-53); Lymphocytes # 2.9 10^3/uL (0.8-4.8); Lymphocytes % 53.3 %; Mean Corpuscular HGB Conc 34.3 g/dL (30-55); Mean Corpuscular Hemoglobin 31.7 pg (27-33); Mean Corpuscular Volume 92.3 fl (82-101); Monocytes # 0.5 10^3/uL (0.2-0.9); Monocytes % 8.6 %; Neutrophils # 1.87 10^3/uL (1.8-7.7); Neutrophils % 34.4 %; Nucleated Red Blood Cells % 0 %; Platelet Count 350 10^3/cmm (157-399); Red Blood Count 5.21 10^6/uL (3.85-5.65); White Blood Count 5.44 10^3/uL (3.29-11.43)
[2024-09-11 20:35] VITALS: BP 116/88; PULSE 71; RESP 18; O2SAT 91
[2024-09-11 20:36] LABS: Alanine Aminotransferase 136 U/L (0-41); Albumin Level 4.3 g/dL (3.5-5.2); Alkaline Phosphatase 113 U/L (40-130); Anion Gap 24.7 (5-19); Aspartate Amino Transferase 101 U/L (0-40); Blood Urea Nitrogen 9 mg/dL (6-20); Calcium 8.8 mg/dL (8.5-10.5); Carbon Dioxide 21 mmol/L (22-29); Chloride 102 mmol/L (98-107); Creatinine Clr Calc Pharmacy 169.4272; Glomerular Filtration Rate 153.3 mL/min (90-130); Glucose 93 mg/dL (65-115); Osmolality Calculated 296 mOsm/kg (285-295); Potassium 3.7 mmol/L (3.5-5.1); Sodium 144 mmol/L (136-145); Thyroid Stimulating Hormone 3.43 uIU/mL (0.27-4.20); Total Bilirubin 0.2 mg/dL (0.15-1.2); Total Protein 7.3 g/dL (6.6-8.7)
[2024-09-11 20:37] LABS: Acetaminophen < 5.0 ug/mL (10-30); Salicylate < 0.3 mg/dL (3-10)
[2024-09-11 20:38] LABS: Alcohol Level 409 mg/dL (0-10)
[2024-09-11 21:00] VITALS: BP 115/89; PULSE 77; RESP 13; O2SAT 93
[2024-09-11] MEDS: nicotine 14 mg Patch 1 PATCH TRANSDERMA (22:02)
[2024-09-11 22:30] VITALS: BP 131/95; PULSE 79; RESP 17; O2SAT 93
[2024-09-11 23:00] VITALS: BP 99/69; PULSE 68; O2SAT 92
[2024-09-11 23:07] LABS: Amphetamines Screen Urine Negative (Negative); Barbiturates Screen Urine Positive (Negative); Benzodiazepines Screen Urine Positive (Negative); Cocaine Screen Urine Negative (Negative); Opiate Screen Urine Negative (Negative); PCP Screen Urine Negative (Negative); THC Screen Urine Positive (Negative)
[2024-09-11 23:08] LABS: Bilirubin Urine Negative (Negative); Blood Urine Negative (Negative); Glucose Urine UA Negative (Normal); Ketones Urine Negative (Negative); Leukocyte Esterase Urine Negative (Negative); Nitrate Urine Negative (Negative); Protein Urine Trace (Negative); Specific Gravity, Urine 1.011 (1.005-1.030); Urine Appearance Clear (CLEAR); Urine Color Yellow (Yellow); pH Urine 6.5 (5-7)
[2024-09-11 23:13] LABS: Add Urine Microscopic? YES; Bacteria Urine None Seen /hpf; Hyaline Casts Urine 1.21 /lpf; RBC Urine 0-2 /hpf (0-2); Squamous Epithelial Cell Urine 0-5 /hpf (0-5); WBC Urine 0-5 /hpf (0-5)
[2024-09-11 23:27] VITALS: BP 99/69; PULSE 71; O2SAT 93
== END 2024-09-11 23:28 | disposition short-term general hospital (02) ==
PROVIDERS: Emergency Provider Emergency Medicine; PCP Family Medicine
DX: G93.6 Cerebral edema (principal); I62.9 Nontraumatic intracranial hemorrhage, unspecified; G93.40 Encephalopathy, unspecified; F10.129 Alcohol abuse with intoxication, unspecified; Y90.8 Blood alcohol level of 240 mg/100 ml or more
CPT/HCPCS: 36415; 70450; 80053; 80306; 80307; 81001; 84443; 85025; 93005; 99285; J9999

== ENCOUNTER 2024-09-30 20:47 | Emergency (ER) | payer SELFPAY ==
--- NOTE | 2024-09-30 20:51 | CTR_ITS ---
PROCEDURE INFORMATION: Exam: CT Head Without Contrast Exam date and time: 09/30/2024 9:37 PM Age: 33 years old Clinical indication: Condition or disease; Other: Encephalopathy; Additional info: Encephalopathy, altered mental status TECHNIQUE: Imaging protocol: Computed tomography of the head without contrast. Radiation optimization: All CT scans at this facility use at least one of these dose optimization techniques: automated exposure control; mA and/or kV adjustment per patient size (includes targeted exams where dose is matched to clinical indication); or iterative reconstruction. COMPARISON: CT head wo con* [id number] 09/11/2024 7:22 PM RADIATION DOSE METRICS: Total DLP (mGy-cm): 1084.55 FINDINGS: Brain: Trace residual thickening of the tentorium may be physiologic or represent residual trace subdural hematoma. No evidence of new or increasing intracranial hemorrhage. No mass or mass effect. Improved hypodensities in the left medial temporal lobe. Cerebral ventricles: Ventricles are within normal limits. Paranasal sinuses: The paranasal sinuses are clear. Mastoid air cells: The mastoid air cells are clear. Bones: No acute osseous abnormalities are seen. Soft tissues: The soft tissues are within normal limits. CT/CT head wo con* [id number] IMPRESSION: 1. Trace residual thickening of the tentorium may be physiologic or represent residual trace subdural hematoma. 2. No definitive evidence of acute intracranial pathology.
[2024-09-30 21:26] LABS: Basophils # 0.1 10^3/uL (0.0-0.1); Basophils % 2.1 %; Eosinophils % 0.4 %; Lymphocytes # 2.4 10^3/uL (0.8-4.8); Mean Corpuscular HGB Conc 34.4 g/dL (30-55); Mean Corpuscular Hemoglobin 31.2 pg (27-33); Mean Corpuscular Volume 90.6 fl (82-101); Mean Platelet Volume 10.1 fL (7.4-10.4); Monocytes # 0.4 10^3/uL (0.2-0.9); Monocytes % 6.2 %; Neutrophils # 2.78 10^3/uL (1.8-7.7); Neutrophils % 49.1 %; Nucleated Red Blood Cells % 0 %; Platelet Count 274 10^3/cmm (157-399); Red Blood Count 5.52 10^6/uL (3.85-5.65); Red Cell Distribution Width 12.7 % (12.1-15.1); White Blood Count 5.66 10^3/uL (3.29-11.43)
[2024-09-30 21:29] VITALS: BP 117/82; PULSE 97; RESP 18; TEMP 36.6; O2SAT 96
[2024-09-30 21:44] LABS: Alanine Aminotransferase 91 U/L (0-41); Albumin Level 4.6 g/dL (3.5-5.2); Alkaline Phosphatase 91 U/L (40-130); Anion Gap 30.7 (5-19); Aspartate Amino Transferase 79 U/L (0-40); Blood Urea Nitrogen 11 mg/dL (6-20); Calcium 9.1 mg/dL (8.5-10.5); Carbon Dioxide 17 mmol/L (22-29); Chloride 99 mmol/L (98-107); Globulin 3.1 g/dL (1.3-4.6); Glomerular Filtration Rate 128.3 mL/min (90-130); Glucose 74 mg/dL (65-115); Osmolality Calculated 294 mOsm/kg (285-295); Potassium 3.7 mmol/L (3.5-5.1); Sodium 143 mmol/L (136-145); Total Bilirubin 0.4 mg/dL (0.15-1.2); Total Protein 7.7 g/dL (6.6-8.7)
[2024-09-30 21:53] LABS: Alcohol Level 352 mg/dL (0-10)
[2024-09-30 23:59] VITALS: BP 151/109; PULSE 99; RESP 18; O2SAT 98
--- NOTE | 2024-10-01 00:02 | PC.NURSE ---
Pt brought to Room 10. Pt states he has had intermittent chest pain all day, descibed as sharp, stabbing and intermittent. Physician notified.
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
--- NOTE | 2024-10-01 00:04 | PC.NURSE ---
Pt states he drank 1 pint of vodka around 2 pm yesterday
--- NOTE | 2024-10-01 00:14 | ECG_ITS ---
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 Measurements Intervals [place] Rate: 82 P: 61 [place]: 148 QRS: 79 QRSD: 90 T: 40 QT: 383 QTc: 450 Interpretive Statements SINUS RHYTHM POSSIBLE LEFT ATRIAL ENLARGEMENT [-0.1mV P-WAVE IN V1/V2] Compared to ECG 09/11/2024 19:43:25 No significant changes Baseline artifacts, need to repeat Electronically Signed On 10-03-2024 06:20:31 CDT by Ryan Heredia M.D. [email or web address]
[2024-10-01 00:17] VITALS: BP 149/97
[2024-10-01 00:19] LABS: D Dimer 0.28 ug/mLFEU (0-0.59)
[2024-10-01 00:30] VITALS: BP 124/87; PULSE 77; RESP 16; O2SAT 99
--- NOTE | 2024-10-01 00:34 | XRR_ITS ---
PROCEDURE INFORMATION: Exam: XR Chest Exam date and time: 10/01/2024 12:48 AM Age: 33 years old Clinical indication: Pain; Chest pressure; Additional info: Chest pain TECHNIQUE: Imaging protocol: Radiologic exam of the chest. Views: 1 view. COMPARISON: CR XR chest 1V portable [id number] 02/05/2022 9:49 AM FINDINGS: Lungs: No pulmonary consolidation. Pleural spaces: No pleural effusion or pneumothorax. Heart/Mediastinum: The cardiomediastinal silhouette is within normal limits. Bones/joints: Age-indeterminate right posterior 5th through 7th rib fractures which have a chronic appearance though are new compared to 02/05/2022. XR/XR chest 1V portable [id number] IMPRESSION: 1. Age-indeterminate right posterior 5th through 7th rib fractures which have a chronic appearance though are new compared to 02/05/2022. Correlate with history and physical exam. 2. No acute cardiopulmonary disease.
[2024-10-01] MEDS: aspirin 81 mg Chew Tablet 324 MG PO (00:46)
--- NOTE | 2024-10-01 00:53 | ECG_ITS ---
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 Measurements Intervals [place] Rate: 78 P: 1 [place]: 125 QRS: 78 QRSD: 90 T: 40 QT: 387 QTc: 442 Interpretive Statements SINUS RHYTHM Compared to ECG 10/01/2024 00:14:28 No significant changes Electronically Signed On 10-03-2024 06:20:18 CDT by Ryan Heredia M.D. [email or web address]
[2024-10-01 01:00] VITALS: BP 131/88; PULSE 89; O2SAT 97
[2024-10-01 01:18] LABS: Troponin(5th) Baseline < 6 ng/L (0-15)
[2024-10-01 01:30] VITALS: BP 143/96; PULSE 100; O2SAT 96
[2024-10-01 01:58] VITALS: BP 143/96; PULSE 100; O2SAT 100
== END 2024-10-01 01:36 | disposition home or self-care (01) ==
PROVIDERS: Emergency Medicine; Emergency Provider Physician Assistant; PCP Family Medicine
DX: R07.89 Other chest pain (principal); E86.0 Dehydration; M94.0 Chondrocostal junction syndrome [Tietze]; E87.20 Acidosis, unspecified; Z72.0 Tobacco use; I10 Essential (primary) hypertension
CPT/HCPCS: 36415; 70450; 71045; 80053; 80307; 84484; 85025; 85378; 93005; 99285; J9999

== ENCOUNTER 2024-10-01 14:59 | Emergency (ER) | payer SELFPAY ==
[2024-10-01] VITALS (7 sets, daily range): BP systolic 120–142; BP diastolic 82–123; PULSE 87–105; RESP 16; TEMP 36.5; O2SAT 92–98
[2024-10-01 16:06] LABS: Basophils # 0.1 10^3/uL (0.0-0.1); Basophils % 0.9 %; Hematocrit 48.7 % (37-53); Lymphocytes # 1.1 10^3/uL (0.8-4.8); Lymphocytes % 13.1 %; Mean Corpuscular HGB Conc 34.3 g/dL (30-55); Mean Corpuscular Volume 90.5 fl (82-101); Mean Platelet Volume 10.8 fL (7.4-10.4); Monocytes # 0.5 10^3/uL (0.2-0.9); Monocytes % 6.1 %; Neutrophils # 6.54 10^3/uL (1.8-7.7); Neutrophils % 79.5 %; Nucleated Red Blood Cells % 0 %; Platelet Count 254 10^3/cmm (157-399); Red Blood Count 5.38 10^6/uL (3.85-5.65); Red Cell Distribution Width 12.8 % (12.1-15.1); White Blood Count 8.22 10^3/uL (3.29-11.43)
[2024-10-01 16:42] LABS: Alanine Aminotransferase 88 U/L (0-41); Alkaline Phosphatase 95 U/L (40-130); Anion Gap 34.6 (5-19); Aspartate Amino Transferase 59 U/L (0-40); Blood Urea Nitrogen 16 mg/dL (6-20); Calcium 11.1 mg/dL (8.5-10.5); Carbon Dioxide 15 mmol/L (22-29); Chloride 90 mmol/L (98-107); Creatinine Clr Calc Pharmacy 110.5994; Globulin 3.5 g/dL (1.3-4.6); Glucose 112 mg/dL (65-115); Lipase 28 U/L (13-60); Osmolality Calculated 282 mOsm/kg (285-295); Potassium 4.6 mmol/L (3.5-5.1); Sodium 135 mmol/L (136-145); Total Bilirubin 1.3 mg/dL (0.15-1.2); Total Protein 8.5 g/dL (6.6-8.7)
--- NOTE | 2024-10-01 18:51 | CTR_ITS ---
PROCEDURE INFORMATION: Exam: CT Abdomen And Pelvis With Contrast Exam date and time: 10/01/2024 7:51 PM Age: 33 years old Clinical indication: Upper abdominal pain, vomiting x2 days TECHNIQUE: Imaging protocol: Computed tomography of the abdomen and pelvis with contrast. Radiation optimization: All CT scans at this facility use at least one of these dose optimization techniques: automated exposure control; mA and/or kV adjustment per patient size (includes targeted exams where dose is matched to clinical indication); or iterative reconstruction. Contrast material: OMNI 350; Contrast volume: 100 ml; Contrast route: INTRAVENOUS (IV); COMPARISON: CR (CHEST, ) 10/01/2024 12:48 AM RADIATION DOSE METRICS: Total DLP (mGy-cm): 398 FINDINGS: Lungs: Lung bases are clear. No pleural effusion. Liver: The liver demonstrates diffuse fatty infiltration. No evidence of liver mass. Gallbladder and biliary ducts: Normal. No calcified stones. No ductal dilation. Pancreas: Normal. No ductal dilation. Spleen: Normal. No splenomegaly. Adrenal glands: Normal. No mass. Kidneys and ureters: Normal. No hydronephrosis. Stomach and bowel: There is fatty infiltration involving the wall of the colon but I see no bowel inflammation or distension. Appendix: The appendix is clearly identified and is unremarkable. Intraperitoneal space: Unremarkable. No free air. No significant fluid collection. Vasculature: Unremarkable. No abdominal aortic aneurysm. Lymph nodes: Unremarkable. No enlarged lymph nodes. Urinary bladder: Unremarkable as visualized. Reproductive: Unremarkable as visualized. Bones/joints: Unremarkable. No acute fracture. Soft tissues: Unremarkable. CT/CT abdomen pelvis w con* [id number] IMPRESSION: 1. No definite acute abnormality noted 2. Fatty liver 3. Fatty infiltration involving the colon wall which sometimes can be seen associated with inflammatory bowel disease
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
[2024-10-01] MEDS: metoclopramide 5 mg/mL SDV 2 mL 10 MG IVP (19:26)
[2024-10-01] MEDS: diphenhydrAMINE 50 mg/mL SDV 1mL IVP (19:26)
[2024-10-01] MEDS: sodium chloride 0.9% 1,000 ML 999 ML IV ×2 (19:26)
[2024-10-01 19:32] LABS: Alcohol Level 27 mg/dL (0-10)
[2024-10-01] MEDS: iohexol 350 mg/mL 500 mL Btl (per mL) IV (20:02)
[2024-10-01 21:13] LABS: Blood Urea Nitrogen 16 mg/dL (6-20); Calcium 8.7 mg/dL (8.5-10.5); Carbon Dioxide 19 mmol/L (22-29); Chloride 94 mmol/L (98-107); Creatinine Clr Calc Pharmacy 124.4243; Glucose 97 mg/dL (65-115); Osmolality Calculated 275 mOsm/kg (285-295); Sodium 132 mmol/L (136-145)
[2024-10-01 21:33] LABS: Anion Gap 23.8 (5-19); Potassium 4.8 mmol/L (3.5-5.1)
[2024-10-01] MEDS: ondansetron hcl ODT 4 mg Tab PO (22:00)
== END 2024-10-01 22:01 | disposition home or self-care (01) ==
PROVIDERS: Emergency Provider Emergency Medicine; PCP Family Medicine
DX: R11.10 Vomiting, unspecified (principal); R19.7 Diarrhea, unspecified; Z72.0 Tobacco use; I10 Essential (primary) hypertension
CPT/HCPCS: 36415; 74177; 80048; 80053; 80307; 83690; 85025; 96374; 96375; 99285; J1200; J2765; J7030; Q0162

== ENCOUNTER 2024-12-16 14:57 | Emergency (ER) | payer SELFPAY ==
[2024-12-16] VITALS (9 sets, daily range): BP systolic 114–151; BP diastolic 81–100; PULSE 73–85; RESP 12; TEMP 37; O2SAT 90–97
[2024-12-16 15:16] LABS: Hematocrit 45.2 % (37-53); Hemoglobin 15.60 g/dL (11.27-16.99); Mean Corpuscular HGB Conc 34.5 g/dL (30-55); Mean Corpuscular Hemoglobin 31.1 pg (27-33); Mean Corpuscular Volume 90.2 fl (82-101); Nucleated Red Blood Cells % 0 %; Platelet Count 254 10^3/cmm (157-399); Red Blood Count 5.01 10^6/uL (3.85-5.65); White Blood Count 5.53 10^3/uL (3.29-11.43)
--- NOTE | 2024-12-16 15:21 | XRR_ITS ---
PROCEDURE INFORMATION: Exam: XR Chest Exam date and time: 12/16/2024 3:27 PM Age: 34 years old Clinical indication: Other: RT sided rhonchi; Additional info: Rhonchi on R TECHNIQUE: Imaging protocol: Radiologic exam of the chest. Views: 2 views. COMPARISON: CR XR chest 1V portable [id number] 10/01/2024 12:48 AM FINDINGS: Lungs: Unremarkable. No consolidation. Pleural spaces: Unremarkable. No pleural effusion. No pneumothorax. Heart/Mediastinum: Unremarkable. No cardiomegaly. Bones/joints: Redemonstrated healed right posterolateral rib fractures. No acute or suspicious osseous abnormality. XR/XR chest 2V* [id number] IMPRESSION: No acute cardiopulmonary process.
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
[2024-12-16 15:38] LABS: Alanine Aminotransferase 120 U/L (0-41); Albumin Level 3.9 g/dL (3.5-5.2); Alkaline Phosphatase 86 U/L (40-130); Anion Gap 24.2 (5-19); Aspartate Amino Transferase 121 U/L (0-40); Blood Urea Nitrogen 8 mg/dL (6-20); Calcium 9.0 mg/dL (8.5-10.5); Carbon Dioxide 21 mmol/L (22-29); Chloride 98 mmol/L (98-107); Creatinine Clr Calc Pharmacy 137.1009; Globulin 3.0 g/dL (1.3-4.6); Glucose 130 mg/dL (65-115); Lipase 149 U/L (13-60); Osmolality Calculated 290 mOsm/kg (285-295); Potassium 3.2 mmol/L (3.5-5.1); Sodium 140 mmol/L (136-145); Total Protein 6.9 g/dL (6.6-8.7)
[2024-12-16 15:40] LABS: Alcohol Level 237 mg/dL (0-10)
[2024-12-16] MEDS: ondansetron 2 mg/ML SDV 2 mL 4 MG IVP (15:42)
[2024-12-16] MEDS: morphine 4 mg/mL SDV 1 mL IVP (15:45)
--- NOTE | 2024-12-16 16:03 | PC.PHAR ---
Pt is out of one of his bp medications Metoprolol Tartrate 37.5mg, he took his last one this morning. Pt would like to have a new order sent to [facility] today, since [facility] is closed for the holiday. Without it, he will be right back in the ER with high bp. 12/16/24
[2024-12-16] MEDS: lidocaine 2% viscous 15 ML, aluminum-mag hydrox-simethicon 30 ML, sucralfate oral liq 1 GM PO (17:35)
[2024-12-16] MEDS: pantoprazole 40 mg SDV IVP (17:37)
[2024-12-16 18:54] LABS: Glucose Urine UA Negative (Normal); Nitrate Urine Negative (Negative); Specific Gravity, Urine 1.014 (1.005-1.030)
[2024-12-16 18:58] LABS: Add Urine Microscopic? YES
[2024-12-16 19:01] LABS: PCP Screen Urine Negative (Negative)
--- NOTE | 2024-12-19 16:00 | DCPLANNER ---
[facility]
[2024-12-19 23:04] LABS: Alcohol, Methyl NONE DETECTED (NONE DETECTED); Volatile Analysis Performed On WHOLE BLOOD
== END 2024-12-16 19:31 | disposition home or self-care (01) ==
PROVIDERS: Emergency Provider Emergency Medicine; PCP Family Medicine
DX: Z53.29 Procedure and treatment not carried out because of patient's decision for other reasons (principal); R10.13 Epigastric pain; E87.6 Hypokalemia; F10.129 Alcohol abuse with intoxication, unspecified; Y90.7 Blood alcohol level of 200-239 mg/100 ml
CPT/HCPCS: 36415; 71046; 80053; 80306; 80307; 80320; 81001; 83690; 83930; 85025; 94640; 96361; 96374; 96375; 99284; J2270; J2405; J2470; J7120; J9999

== ENCOUNTER 2024-12-17 05:30 | Emergency (ER) | payer SELFPAY ==
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
[2024-12-17 05:47] LABS: Hematocrit 43.3 % (37-53); Hemoglobin 15.20 g/dL (11.27-16.99); Mean Corpuscular HGB Conc 35.1 g/dL (30-55); Mean Corpuscular Hemoglobin 31.7 pg (27-33); Mean Corpuscular Volume 90.4 fl (82-101); Nucleated Red Blood Cells % 0 %; Platelet Count 198 10^3/cmm (157-399); Red Blood Count 4.79 10^6/uL (3.85-5.65); White Blood Count 6.53 10^3/uL (3.29-11.43)
[2024-12-17 05:48] VITALS: BP 124/103; PULSE 80; RESP 15; TEMP 37.2; O2SAT 98; BMI 21.2
[2024-12-17 05:53] VITALS: BP 124/103; PULSE 74; O2SAT 94
--- NOTE | 2024-12-17 06:13 | CTR_ITS ---
PROCEDURE INFORMATION: Exam: CT Abdomen And Pelvis With Contrast Exam date and time: 12/17/2024 6:18 AM Age: 34 years old Clinical indication: Abdominal pain; Epigastric; Additional info: Abd pain TECHNIQUE: Imaging protocol: Computed tomography of the abdomen and pelvis with contrast. Radiation optimization: All CT scans at this facility use at least one of these dose optimization techniques: automated exposure control; mA and/or kV adjustment per patient size (includes targeted exams where dose is matched to clinical indication); or iterative reconstruction. Contrast material: OMNI 350; Contrast volume: 100 ml; Contrast route: INTRAVENOUS (IV); COMPARISON: CT abdomen pelvis w con* [id number] 10/01/2024 7:51 PM RADIATION DOSE METRICS: Total DLP (mGy-cm): 376.66 FINDINGS: Lungs: The lung bases are clear. Liver: Extensive hepatic steatosis. The liver is enlarged and measures about 18.8 cm. No focal liver lesion appreciated. Gallbladder and biliary ducts: Cholelithiasis. No CT evidence of cholecystitis. Pancreas: There are strandy inflammatory changes surrounding the head and tail of the pancreas raising the concern for acute pancreatitis. Correlation with amylase and lipase is suggested. The pancreatic duct is nondilated. Spleen: The spleen is normal in appearance. Adrenal glands: The adrenal glands are normal in appearance. Kidneys and ureters: The kidneys are normal in appearance. There are small subcentimeter hypodense lesions in the right kidney, likely representing cysts. No evidence of hydronephrosis or hydroureter. No nephroureteral calculi are identified. Stomach and bowel: The small bowel loops are not thickened and are nondilated. There is mild mural fatty infiltration of the [place] of the colon which can be associated with chronic inflammatory bowel disease. No acute bowel inflammation identified. Appendix: The appendix is normal in appearance. No evidence of appendicitis. Intraperitoneal space: Unremarkable. No free air. No significant fluid collection. Vasculature: Unremarkable. No abdominal aortic aneurysm. Lymph nodes: Unremarkable. No enlarged lymph nodes. Urinary bladder: Mild thickening of the urinary bladder likely due to underdistention. Reproductive: Unremarkable as visualized. Bones/joints: No acute osseous lesions. There are stable chronic degenerative disc disease at L5-S1. Soft tissues: Tiny fat containing periumbilical hernia. CT/CT abdomen pelvis w con* [id number] IMPRESSION: 1. Subtle strandy inflammatory changes surrounding the pancreas. Consider acute pancreatitis. 2. Extensive fatty infiltration of the liver. Mild hepatomegaly. 3. Cholelithiasis but no suggestion of cholecystitis. COMMENTS: Consistent with the [employer] [employer]'s Incidental Findings Committee white paper (J Am Dotty Radiol 2018): Any incidental renal lesion less than 1 cm or classified as too small to characterize, or any incidental cystic renal lesion characterized as simple-appearing, is likely benign. No follow-up imaging is recommended for these lesions per consensus recommendations based on imaging criteria.
[2024-12-17] MEDS: iohexol 350 mg/mL 500 mL Btl (per mL) IV (06:21)
[2024-12-17 06:23] VITALS: BP 138/98; PULSE 81; O2SAT 96
[2024-12-17 06:30] VITALS: BP 128/96; PULSE 80; O2SAT 97
[2024-12-17 06:32] LABS: Ketone (Acetest) Serum Negative (Negative)
[2024-12-17 06:42] LABS: Alanine Aminotransferase 100 U/L (0-41); Albumin Level 3.9 g/dL (3.5-5.2); Alkaline Phosphatase 80 U/L (40-130); Anion Gap 17.5 (5-19); Aspartate Amino Transferase 77 U/L (0-40); Blood Urea Nitrogen 5 mg/dL (6-20); Calcium 8.9 mg/dL (8.5-10.5); Carbon Dioxide 24 mmol/L (22-29); Chloride 94 mmol/L (98-107); Creatinine Clr Calc Pharmacy 191.9412; Globulin 2.9 g/dL (1.3-4.6); Glucose 87 mg/dL (65-115); Lipase 116 U/L (13-60); Osmolality Calculated 271 mOsm/kg (285-295); Potassium 3.5 mmol/L (3.5-5.1); Sodium 132 mmol/L (136-145); Total Protein 6.8 g/dL (6.6-8.7)
[2024-12-17 06:47] LABS: Alcohol Level < 10 mg/dL (0-10)
[2024-12-17 07:00] VITALS: BP 148/104; PULSE 84; RESP 18; O2SAT 95; O2SAT 97
[2024-12-17] MEDS: morphine 4 mg/mL SDV 1 mL IVP (07:00)
[2024-12-17] MEDS: ondansetron 2 mg/ML SDV 2 mL 4 MG IVP (07:00)
[2024-12-17 07:16] VITALS: BP 122/99; PULSE 87; O2SAT 96
[2024-12-17 07:43] LABS: Glucose Urine UA Negative (Normal); Nitrate Urine Negative (Negative); Specific Gravity, Urine 1.015 (1.005-1.030)
[2024-12-17 07:47] LABS: Add Urine Microscopic? YES
== END 2024-12-17 07:17 | disposition home or self-care (01) ==
PROVIDERS: Family Medicine; Emergency Provider Emergency Medicine; PCP Family Medicine
DX: K85.90 Acute pancreatitis without necrosis or infection, unspecified (principal); K80.20 Calculus of gallbladder without cholecystitis without obstruction; K76.0 Fatty (change of) liver, not elsewhere classified; I10 Essential (primary) hypertension; Z72.0 Tobacco use
CPT/HCPCS: 36415; 74177; 80053; 80307; 81001; 82009; 83690; 85025; 96374; 96375; 99285; J2270; J2405

== ENCOUNTER 2024-12-18 07:21 | Inpatient (IN) | payer SELFPAY ==
[2024-12-18] VITALS (11 sets, daily range): BP systolic 122–156; BP diastolic 80–114; PULSE 71–93; RESP 16–18; TEMP 36.7–37.1; O2SAT 92–98
[2024-12-18 07:55] LABS: Hematocrit 45.1 % (37-53); Hemoglobin 15.80 g/dL (11.27-16.99); Mean Corpuscular HGB Conc 35.0 g/dL (30-55); Mean Corpuscular Hemoglobin 32.2 pg (27-33); Mean Corpuscular Volume 91.9 fl (82-101); Nucleated Red Blood Cells % 0 %; Platelet Count 190 10^3/cmm (157-399); Red Blood Count 4.91 10^6/uL (3.85-5.65); White Blood Count 7.25 10^3/uL (3.29-11.43)
[2024-12-18 08:08] LABS: Alanine Aminotransferase 84 U/L (0-41); Albumin Level 4.1 g/dL (3.5-5.2); Alkaline Phosphatase 86 U/L (40-130); Anion Gap 18.8 (5-19); Aspartate Amino Transferase 63 U/L (0-40); Blood Urea Nitrogen 14 mg/dL (6-20); Calcium 9.4 mg/dL (8.5-10.5); Carbon Dioxide 25 mmol/L (22-29); Chloride 92 mmol/L (98-107); Globulin 3.2 g/dL (1.3-4.6); Glucose 109 mg/dL (65-115); Osmolality Calculated 275 mOsm/kg (285-295); Potassium 3.8 mmol/L (3.5-5.1); Sodium 132 mmol/L (136-145); Total Protein 7.3 g/dL (6.6-8.7)
[2024-12-18 08:16] LABS: Lipase 1651 U/L (13-60)
[2024-12-18] MEDS: ondansetron 2 mg/ML SDV 2 mL 4 MG IVP (08:18)
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
[2024-12-18] MEDS: morphine 4 mg/mL SDV 1 mL IVP (08:19)
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
[2024-12-18 09:53] LABS: Triglycerides 49 mg/dL (0-150)
--- NOTE | 2024-12-18 11:10 | US_ITS ---
WS: [id number] RIGHT UPPER QUADRANT ULTRASOUND HISTORY: Assess for any choledocholithiasis COMPARISON: CT 12/17/2024 Liver: 18.0 cm in length. Normal size liver and echogenicity. No bile duct dilatation or mass. Portal Vein: Normal hepatopetal flow with monophasic waveform. Gallbladder: Normally distended gallbladder with no stones or wall thickening. CBD: 0.3 cm Pancreas: Normal size and echogenicity. Right kidney: 9.7 cm in length. Normal size and echogenicity. No hydronephrosis or mass. Aorta and IVC: Unremarkable abdominal aorta and IVC. No ascites. US/US gall bladder 23376 IMPRESSION: Normal right upper quadrant ultrasound. No evidence for cholelithiasis or choledocholithiasis. Normal sized common bile duct.
[2024-12-18] MEDS: polyethylene glycol 3350 Pkt 17 gm PO ×2 (11:46→19:40)
[2024-12-18] MEDS: pantoprazole 40 mg SDV IVP ×2 (11:46→23:31)
[2024-12-18 11:53] LABS: Lipase 1623 U/L (13-60)
[2024-12-18] MEDS: morphine 4 mg/mL SDV 1 mL 2 MG IVP ×3 (13:30→23:32)
[2024-12-19] VITALS (12 sets, daily range): BP systolic 122–177; BP diastolic 84–119; PULSE 76–81; RESP 16–20; TEMP 36.4–36.9; O2SAT 96–97
[2024-12-19] MEDS: morphine 4 mg/mL SDV 1 mL 2 MG IVP ×6 (03:37→23:25)
[2024-12-19 04:08] LABS: Hematocrit 49.9 % (37-53); Hemoglobin 16.10 g/dL (11.27-16.99); Mean Corpuscular HGB Conc 32.3 g/dL (30-55); Mean Corpuscular Hemoglobin 31.6 pg (27-33); Mean Corpuscular Volume 97.8 fl (82-101); Nucleated Red Blood Cells % 0 %; Platelet Count 184 10^3/cmm (157-399); Red Blood Count 5.10 10^6/uL (3.85-5.65); White Blood Count 6.24 10^3/uL (3.29-11.43)
[2024-12-19 06:15] LABS: Alanine Aminotransferase 53 U/L (0-41); Albumin Level 3.4 g/dL (3.5-5.2); Alkaline Phosphatase 74 U/L (40-130); Anion Gap 17.8 (5-19); Aspartate Amino Transferase 33 U/L (0-40); Blood Urea Nitrogen 6 mg/dL (6-20); Calcium 8.9 mg/dL (8.5-10.5); Carbon Dioxide 22 mmol/L (22-29); Chloride 100 mmol/L (98-107); Creatinine Clr Calc Pharmacy 163.8819; Globulin 2.8 g/dL (1.3-4.6); Glucose 74 mg/dL (65-115); Magnesium 2.0 mg/dL (1.7-2.3); Osmolality Calculated 278 mOsm/kg (285-295); Potassium 3.8 mmol/L (3.5-5.1); Sodium 136 mmol/L (136-145); Total Protein 6.2 g/dL (6.6-8.7)
--- NOTE | 2024-12-19 06:56 | PC.NURSE ---
Patient c/o pain at 0335. I gave 2mg IVP morphine at 0337 per JUN. Patient c/o of pain at 06. Morphine is not due to give again until 736. Patient says the Tylenol does not help and would like something else. Messaged Dr. Saskia Ortiz and says to give 2mg IVP morphine now. Physician notification put in per worklist and morphine given per Drs orders. No complications. Patient tolerated well.
[2024-12-19 09:09] LABS: Lipase 676 U/L (13-60)
[2024-12-19] MEDS: polyethylene glycol 3350 Pkt 17 gm PO (09:22)
[2024-12-19] MEDS: pantoprazole 40 mg SDV IVP ×2 (10:58→23:30)
--- NOTE | 2024-12-19 16:16 | P.PN_ITS ---
Subjective 2 Subjective: Continues to be bothered by pain, relieved by pain medication. No further nausea or vomiting. He is hungry as well and would like to try oral diet, is okay starting with clears. Vitals/I&O/Wt Last Vital Signs Temp 98.0 F 12/19/24 15:38 Pulse 76 12/19/24 15:38 Resp 17 12/19/24 15:38 BP 144/103 12/19/24 15:38 Pulse Ox 96 12/19/24 15:38 O2 Del Method Room Air 12/19/24 15:38 12/19/24 12/19/24 12/19/24 06:59 14:59 22:59 Intake Total 926.25 / 926.25 1333.75 / 1333.75 Output Total 400 / 400 750 / 750 1100 / 1850 Balance 526.25 / 526.25 583.75 / 583.75 -1100 / -516.25 Weight last 48 hrs Weight 67.585 kg Weight 67.585 kg Physical Exam 2 Const: COMMON NORMALS: patient oriented x3 and alert GENERAL APPEARANCE: c ooperative ORIENTATION/CONSCIOUSNESS: Yes awake HENMT: COMMON NORMALS: oropharynx normal Neck/C-Spine: COMMON NORMALS: no JVD Resp: COMMON NORMALS: normal respiratory effort and clear to auscultation bilaterally AUSCULTATION: clear to auscultation bilaterally Cardio: COMMON NORMALS: no JVD, regular rhythm, S1 normal heart sound present, S2 normal heart sound present and No murmurs present (Cardio) RHYTHM: regular rhythm HEART SOUNDS: S1 normal heart sound present and S2 normal heart sound present GI: PALPATION: Yes Tenderness to palpation present (GI) Extremity: COMMON NORMALS: no joint enlargement and no pedal edema Neuro: COMMON NORMALS: patient oriented x3 and moves all extremities S ENSORIUM/ORIENTATION: Yes alert Skin: COMMON NORMALS: no rashes or lesions noted GENERAL SKIN EXAM: no rashes or lesions noted Data 12/19/24 02:48 12/19/24 05:36 A&P Assessment and plan 1. Pancreatitis: Acute pancreatitis with mild improvement, no nausea or vomiting. Still having pain requiring IV morphine. Trial of clear liquids. Reviewed chemistry, blood counts, lipase. Lipase noted with improvement. He has been feeling somewhat lightheaded, possibly from poor oral intake recently. Will keep IV fluids for now until resuming oral intake more reliably. Continue supportive measures. Reviewed gallbladder ultrasound, without evidence of choledocholithiasis. 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 - Discussed with him to avoid alcohol. Plan: Nausea and vomiting : So far resolved. Trial of clear liquids. Reports inability to keep food down and emesis of yellow bile last night; symptoms attributed to pancreatitis with possible concurrent alcohol induced gastritis. - Continue IV PPI (for gastritis symptoms) until reliable oral intake. Constipation : Far no success with MiraLAX. Add Dulcolax suppository. Mag citrate as needed. Continue IV hydration. Suspected alcohol-related gastritis : Alcohol use discussed as a cause of gastritis contributing to nausea/vomiting and poor oral tolerance. - Administer IV PPI twice daily Alcohol use disorder : Patient reports no alcohol intake since last Monday; alcohol identified as a common trigger for pancreatitis. Discussed with case management. - Advise abstinence from alcohol to prevent recurrence of pancreatitis. Cholelithiasis : Reviewed gallbladder ultrasound. Gallstones noted on CT without signs of gallbladder inflammation; normal bilirubin reported. - Obtain abdominal ultrasound to ensure no obstructing stone in the biliary tract. Hepatic steatosis with mild hepatomegaly : Extensive hepatic fat infiltration and mild hepatomegaly on CT. will need follow-up with primary provider. Giurgius of EtOH. Hypertension : History of hypertension; ED blood pressure 148/99 mmHg. monitor blood pressures. Resume medications once confirmed. Tobacco use : Active smoker. Encourage smoking cessation. Nicotine replacement as needed. Mild hyponatremia : Sodium 132 mmol/L in ED. repeat chemistry. Mild transaminitis : AST 63 U/L, ALT 84 U/L with mild improvement from yesterday. Repeat chemistry, alcohol induced transaminitis. Follow-up : Planned reassessment and lab follow-up during hospitalization. - Recheck lipase tomorrow. PDMP PDMP Reviewed: Not Reviewed Attestations 2 Medical Necessity Statement*: Continue admission for assessment and management of acute pancreatitis. and High MDM includes amount and/or complexity of data reviewed/ordered [ resulted lab(s)/test(s), ordered lab(s)/test(s) and other healthcare professional discussion] and described risk of complication, morbidity or mortality of management as documented Diagnoses Pancreatitis K85.90
[2024-12-19] MEDS: magnesium citrate Btl 296 mL PO (16:54)
[2024-12-20] VITALS: BP 142/108; PULSE 74; RESP 16; TEMP 35.6; O2SAT 96
[2024-12-20 04:00] VITALS: BP 150/108; PULSE 79; RESP 17; TEMP 36.8; O2SAT 97
[2024-12-20 04:59] VITALS: RESP 16
[2024-12-20] MEDS: morphine 4 mg/mL SDV 1 mL 2 MG IVP ×2 (04:59→09:14)
[2024-12-20 05:30] LABS: Hematocrit 41.1 % (37-53); Hemoglobin 14.20 g/dL (11.27-16.99); Mean Corpuscular HGB Conc 34.5 g/dL (30-55); Mean Corpuscular Hemoglobin 31.7 pg (27-33); Mean Corpuscular Volume 91.7 fl (82-101); Nucleated Red Blood Cells % 0 %; Platelet Count 161 10^3/cmm (157-399); Red Blood Count 4.48 10^6/uL (3.85-5.65); White Blood Count 4.56 10^3/uL (3.29-11.43)
[2024-12-20 05:57] LABS: Alanine Aminotransferase 48 U/L (0-41); Albumin Level 3.5 g/dL (3.5-5.2); Alkaline Phosphatase 87 U/L (40-130); Anion Gap 15.0 (5-19); Aspartate Amino Transferase 31 U/L (0-40); Blood Urea Nitrogen 3 mg/dL (6-20); Calcium 8.9 mg/dL (8.5-10.5); Carbon Dioxide 25 mmol/L (22-29); Chloride 103 mmol/L (98-107); Creatinine Clr Calc Pharmacy 195.6101; Globulin 2.9 g/dL (1.3-4.6); Glucose 92 mg/dL (65-115); Osmolality Calculated 284 mOsm/kg (285-295); Potassium 4.0 mmol/L (3.5-5.1); Sodium 139 mmol/L (136-145); Total Protein 6.4 g/dL (6.6-8.7)
[2024-12-20 06:10] LABS: Lipase 415 U/L (13-60)
[2024-12-20 08:00] VITALS: BP 169/108; PULSE 84; RESP 17; TEMP 36.8; O2SAT 98
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
[2024-12-20 09:14] VITALS: RESP 18
[2024-12-20 09:45] VITALS: BP 169/108; PULSE 84; RESP 18; TEMP 36.8; O2SAT 98
== END 2024-12-20 09:48 | disposition home or self-care (01) | DRG 439 ==
LOC: ER 08:23 → ER IP 08:34 → MEDSURG 20:23
PROVIDERS: Admitting Provider Internal Medicine; Emergency Provider Emergency Medicine; PCP Family Medicine; Visit Provider Internal Medicine
DX: K85.20 Alcohol induced acute pancreatitis without necrosis or infection (principal); E87.1 Hypo-osmolality and hyponatremia; F17.200 Nicotine dependence, unspecified, uncomplicated; I10 Essential (primary) hypertension; K76.0 Fatty (change of) liver, not elsewhere classified; K80.20 Calculus of gallbladder without cholecystitis without obstruction; K29.20 Alcoholic gastritis without bleeding; K59.00 Constipation, unspecified
CPT/HCPCS: 36415; 76705; 80053; 83690; 83735; 84478; 85025; 96361; 96372; 96374; 99285; J1650; J2270; J2405; J2470; J7030; J9999

== ENCOUNTER 2024-12-20 21:48 | Emergency (ER) | payer SELFPAY ==
[2024-12-20 22:04] VITALS: BP 170/105; PULSE 103; RESP 16; TEMP 36.6; O2SAT 98; BMI 21.2
--- NOTE | 2024-12-20 23:07 | CTR_ITS ---
PROCEDURE INFORMATION: Exam: CT Abdomen And Pelvis With Contrast Exam date and time: 12/20/2024 11:43 PM Age: 34 years old Clinical indication: Abdominal pain; C/O persistent epigastric pain. Diagnosed with mild pancreatitis from CT scan on 12/17/2024. ; Additional info: Epigastric pain, recent dx of pancreatitis TECHNIQUE: Imaging protocol: Computed tomography of the abdomen and pelvis with contrast. Radiation optimization: All CT scans at this facility use at least one of these dose optimization techniques: automated exposure control; mA and/or kV adjustment per patient size (includes targeted exams where dose is matched to clinical indication); or iterative reconstruction. Contrast material: OMNI 350; Contrast volume: 100 ml; Contrast route: INTRAVENOUS (IV); COMPARISON: CT abdomen pelvis w con* [id number] 12/17/2024 6:18 AM RADIATION DOSE METRICS: Total DLP (mGy-cm): 393.67 FINDINGS: Liver: Mild diffuse hepatic hypoattenuation favors a component of steatosis. The liver is otherwise within normal limits. Gallbladder and biliary ducts: Normal. No calcified stones. No ductal dilation. Pancreas: Subtle peripancreatic fat stranding without loculated peripancreatic fluid is present. No ductal dilatation is seen. No pancreatic mass is noted. Spleen: Normal. No splenomegaly. Adrenal glands: Normal. No mass. Kidneys and ureters: A 3 mm nonobstructing left renal stone is present. Subcentimeter hypodensities in the right kidney are too small to accurately characterize, statistically representing simple cysts. Stomach and bowel: Mucosal fat deposition in the colon. Otherwise, the large and small bowel are normal in course and caliber without evidence of wall thickening or obstruction. Appendix: The appendix is normal. Intraperitoneal space: Unremarkable. No free air. No significant fluid collection. Vasculature: Unremarkable. No abdominal aortic aneurysm. Lymph nodes: Unremarkable. No enlarged lymph nodes. Urinary bladder: Unremarkable as visualized. Reproductive: Unremarkable as visualized. Bones/joints: Intervertebral disc height loss and degenerative changes are seen in the lumbar spine, most pronounced at L5-S1. Soft tissues: Unremarkable. CT/CT abdomen pelvis w con* [id number] IMPRESSION: 1. Findings which may be suggestive of mild acute interstitial edematous pancreatitis. Correlate with pancreatic enzymes. 2. Findings concerning for hepatic steatosis. Correlate with LFTs. 3. Nonobstructive left nephrolithiasis. 4. Submucosal fat deposition in the colon, which can be seen in the setting of chronic inflammation. Correlate with patient history. 5. Degenerative joint disc disease, most notable at L5-S1. COMMENTS: Consistent with the [employer]'s Incidental Findings Committee white paper (J Am Dotty Radiol 2018): Any incidental renal lesion less than 1 cm or classified as too small to characterize, or any incidental cystic renal lesion characterized as simple-appearing, is likely benign. No follow-up imaging is recommended for these lesions per consensus recommendations based on imaging criteria.
[2024-12-20 23:08] LABS: Glucose Urine UA Negative (Normal); Nitrate Urine Negative (Negative); Specific Gravity, Urine 1.019 (1.005-1.030)
[2024-12-20 23:10] LABS: Add Urine Microscopic? YES
[2024-12-20 23:26] LABS: Hematocrit 40.6 % (37-53); Hemoglobin 14.00 g/dL (11.27-16.99); Mean Corpuscular HGB Conc 34.5 g/dL (30-55); Mean Corpuscular Hemoglobin 31.7 pg (27-33); Mean Corpuscular Volume 92.1 fl (82-101); Nucleated Red Blood Cells % 0 %; Platelet Count 185 10^3/cmm (157-399); Red Blood Count 4.41 10^6/uL (3.85-5.65); White Blood Count 7.26 10^3/uL (3.29-11.43)
[2024-12-20 23:35] VITALS: RESP 16
[2024-12-20] MEDS: morphine 4 mg/mL SDV 1 mL IVP (23:35)
[2024-12-20] MEDS: metoclopramide 5 mg/mL SDV 2 mL 10 MG IVP (23:36)
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
[2024-12-20 23:43] LABS: Alanine Aminotransferase 62 U/L (0-41); Albumin Level 3.6 g/dL (3.5-5.2); Alkaline Phosphatase 108 U/L (40-130); Anion Gap 14.6 (5-19); Aspartate Amino Transferase 66 U/L (0-40); Blood Urea Nitrogen 6 mg/dL (6-20); Calcium 9.1 mg/dL (8.5-10.5); Carbon Dioxide 25 mmol/L (22-29); Chloride 100 mmol/L (98-107); Creatinine Clr Calc Pharmacy 159.9510; Globulin 3.1 g/dL (1.3-4.6); Glucose 110 mg/dL (65-115); Osmolality Calculated 280 mOsm/kg (285-295); Potassium 3.6 mmol/L (3.5-5.1); Sodium 136 mmol/L (136-145); Total Protein 6.7 g/dL (6.6-8.7)
[2024-12-20] MEDS: iohexol 350 mg/mL 500 mL Btl (per mL) IV (23:45)
[2024-12-20 23:54] LABS: Lipase 509 U/L (13-60)
== END 2024-12-21 01:28 | disposition home or self-care (01) ==
PROVIDERS: Emergency Medicine; Emergency Provider Physician Assistant; PCP Family Medicine
DX: K86.0 Alcohol-induced chronic pancreatitis (principal); Z72.0 Tobacco use; I10 Essential (primary) hypertension
CPT/HCPCS: 36415; 74177; 80053; 81001; 83690; 85025; 96374; 96375; 99285; J2270; J2765; J7030

== ENCOUNTER 2024-12-31 06:15 | Emergency (ER) | payer SELFPAY ==
[2024-12-31] VITALS (19 sets, daily range): BP systolic 121–174; BP diastolic 83–112; PULSE 66–88; RESP 16–20; TEMP 36.7; O2SAT 90–98; BMI 21.9
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
[2024-12-31 06:46] LABS: Hematocrit 41.8 % (37-53); Hemoglobin 14.20 g/dL (11.27-16.99); Mean Corpuscular HGB Conc 34.0 g/dL (30-55); Mean Corpuscular Hemoglobin 31.4 pg (27-33); Mean Corpuscular Volume 92.5 fl (82-101); Nucleated Red Blood Cells % 0 %; Platelet Count 503 10^3/cmm (157-399); Red Blood Count 4.52 10^6/uL (3.85-5.65); White Blood Count 7.12 10^3/uL (3.29-11.43)
[2024-12-31] MEDS: morphine 4 mg/mL SDV 1 mL IVP ×2 (06:57→07:37)
--- NOTE | 2024-12-31 07:01 | ECG_ITS ---
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 Measurements Intervals [place] Rate: 66 P: 41 RI: 150 QRS: 79 QRSD: 89 T: 54 QT: 416 QTc: 438 Interpretive Statements SINUS RHYTHM WITH SINUS ARRHYTHMIA Compared to ECG 10/01/2024 00:53:58 No significant changes Electronically Signed On 12-31-2024 07:55:57 CDT by Ryan Heredia M.D. [email or web address]
[2024-12-31 07:08] LABS: Alanine Aminotransferase 31 U/L (0-41); Albumin Level 3.8 g/dL (3.5-5.2); Alkaline Phosphatase 92 U/L (40-130); Anion Gap 19.8 (5-19); Aspartate Amino Transferase 27 U/L (0-40); Blood Urea Nitrogen 5 mg/dL (6-20); Calcium 8.7 mg/dL (8.5-10.5); Carbon Dioxide 22 mmol/L (22-29); Chloride 106 mmol/L (98-107); Creatinine Clr Calc Pharmacy 156.6288; Globulin 2.9 g/dL (1.3-4.6); Glucose 127 mg/dL (65-115); Lipase 145 U/L (13-60); Osmolality Calculated 297 mOsm/kg (285-295); Potassium 3.8 mmol/L (3.5-5.1); Sodium 144 mmol/L (136-145); Total Protein 6.7 g/dL (6.6-8.7)
--- NOTE | 2024-12-31 07:16 | CT_ITS ---
WS: [id number] CT ABDOMEN AND PELVIS WITH CONTRAST HISTORY: abd pain/pancreatitis TECHNIQUE: Imaging performed of the abdomen and pelvis with IV contrast. Single phase imaging of the abdomen. Coronal and sagittal reformats are submitted. All CT scans at [facility] use at least one of these dose optimization techniques: automated exposure control; mA and/or kV adjustment per patient size (includes targeted exams where dose is matched to clinical indication); or iterative reconstruction. IV CONTRAST: Omnipaque 350; 100 mL IV. Oral contrast: No DLP: 376.67 mGy.cm COMPARISON: 12/20/2024 Lower thorax: Lung bases are clear. Heart is normal size. No hiatal hernia. Liver/biliary system: Normal size liver. Mild hepatic steatosis. Focal fatty sparing along the falciform ligament. Normal portal vein. Gallbladder: Mild gallbladder wall enhancement. No pericholecystic fluid. Pancreas: Reidentified is enlargement and edema involving the distal pancreas extending to the pancreatic tail. There is a new area of nonenhancement in the pancreatic tail surrounded by a small amount of fluid. No hemorrhage identified. Mild thickening along the pararenal fascia. Spleen: Normal size spleen. No mass or infarct. Adrenal glands: Normal. Right kidney: Normal. Left kidney: Normal. Aorta: Normal. Lymphadenopathy: None. Free fluid: No free fluid. No pseudocyst. Very small thickening along the LEFT pararenal fascia associated with the pancreatitis. GI tract: Stomach is not distended. No small bowel obstruction. Development of submucosal edema within the colon which can be seen with portal hypertension or infection or ischemia. No pneumatosis. Mild enhancement of the muscularis involving the sigmoid colon. Abdominal wall: Small umbilical hernia contains fat only. Pelvis: No free fluid or adenopathy within the pelvis. Bones: Unremarkable. CT/CT abdomen pelvis w con* [id number] IMPRESSION: 1. Interval development of splenic vein thrombosis since 12/20/2024. Long segmen t thrombus. Thrombus is close to the portal vein confluence. No portal vein thr ombosis at this time. 2. Distal acute pancreatitis. 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 3. No pseudocyst. 4. No intrahepatic duct dilatation. 5. New submucosal edema involving the colon which can be seen with portal hype rtension, ischemia or infection.
[2024-12-31] MEDS: iohexol 350 mg/mL 500 mL Btl (per mL) IV (07:23)
[2024-12-31] MEDS: pantoprazole 40 mg SDV 80 MG IVP (07:37)
[2024-12-31 08:05] LABS: Glucose Urine UA Negative (Normal); Nitrate Urine Negative (Negative); Specific Gravity, Urine 1.021 (1.005-1.030)
[2024-12-31 08:08] LABS: Add Urine Microscopic? YES
--- NOTE | 2024-12-31 09:44 | PC.NURSE ---
THIS NURSE ASKED PROVIDER IF BLOOD CULTURES NEEDED TO BE OBTAINED BEFORE ANTIBIOTICS. DR. MENDOZA STATED HE DID NOT NEED BLOOD CULTURES.
[2024-12-31] MEDS: heparin 5,000 unit/mL INJ 1 mL IVP (09:52)
[2024-12-31] MEDS: heparin drip 25,000 UNIT/500 ML PREMIX 18 UNIT IV (10:00)
[2024-12-31] MEDS: metroNIDAZOLE IV 500 MG/100 ML PREMIX 100 MG IV (11:09)
[2024-12-31] MEDS: HYDROmorphone 0.5 MG/0.5 ML INJ IVP ×3 (11:39→21:07)
[2024-12-31] MEDS: ondansetron 2 mg/ML SDV 2 mL 4 MG IVP (13:56)
[2024-12-31 17:00] LABS: Partial Thromboplastin Time 48.9 SECONDS (23.9-36.7)
== END 2024-12-31 21:13 | disposition intermediate care facility (04) ==
PROVIDERS: Emergency Provider Family Medicine; PCP Family Medicine
DX: K85.90 Acute pancreatitis without necrosis or infection, unspecified (principal); I82.890 Acute embolism and thrombosis of other specified veins; K76.6 Portal hypertension; Z72.0 Tobacco use
CPT/HCPCS: 74177; 80053; 81001; 83690; 85025; 85730; 93005; 96365; 96366; 96367; 96375; 96376; 99285; J0744; J1171; J1644; J1885; J2270; J2405; J2470; J3490; J7030

== ENCOUNTER 2025-01-19 08:47 | Emergency (ER) | payer MEDICAID, SELFPAY ==
--- OUTSIDE RECORDS SUMMARY | 2025-01-19 08:50 | XMS_ITS | Clinical Summary ---
Author Organization [employer] ([employer]) Address [address] [facility] Attn: Epic Prelude ADT [place] [id number] Care Team Providers Care Spinning Frame Changer Name Role Phone Jose Julien MD Primary Care Provider Unavaila ble Allergies Active Allergy Reactions Criticality Noted Date Comments Penicillins Swelling Low 10/18/2017 Medications amLODIPine (NORVASC) 5 mg tablet Take 5 mg by mouth daily. Active metoprolol tartrate 37.5 mg Tablet Take 1 Tablet by mouth 2 times daily. Active apixaban (ELIQUIS) 5 mg tablet Take 1 Tablet (5 mg) by mouth 2 times daily. 60 Tablet 1 01/06/2025 11:34 AM CDT 5 03/07/20 25 Active thiamine mononitrate (VITAMIN B-1) 100 mg tablet Take 1 Tablet (100 mg) by mouth daily. 30 Tablet 5 02/07/20 25 Active pantoprazole (Protonix) 40 mg Tablet, Delayed Release (E.C.) Take 1 Tablet (40 mg) by mouth daily for 14 days. 14 Tablet 01/06/2025 11:34 AM CDT 5 01/21/20 25 Active oxyCODONE (ROXICODONE) 5 mg tabletIndications :Alcohol-induced acute pancreatitis with uninfected necrosis Take 1 Tablet (5 mg) by mouth every 6 hours as needed for Moderate or Severe Pain. 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 01/01/2025 Splenic vein thrombosis 01/01/2025 Alcohol abuse 01/01/2025 Tobacco use 01/01/2025 Encounter for tobacco use cessation counseling 0 01/01/2025 HTN (hypertension), benign 01/01/2025 Hypokalemia 01/01/2025 Encounters Date Type Department Care Team Description 01/08/2025 Orders Only [facility] HIM [address] [place] [address] Provider, Abstract 01/07/2025 External Device Data [facility] Provider, Abstract 01/07/2025 External Device Data [facility] Provider, Abstract 01/07/2025 External Device Data [facility] Provider, Abstract 01/01/2025 Travel 12/31/2024 11:04 PM CDT - 01/06/2025 12:13 PM CDT Hospital Encounter [facility] 3D Medical Telemetry [address] [place] [id number] Yasmani Breen MD Sundaram, Vignesh, MD Phelps, Jamie, MD Raavi, MD Stacey Ascencio, MD Yonis Alcohol-induced acute pancreatitis with uninfected necrosis Discharge Disposition: Home or Self Care from Last 3 Months Family History Medical History Relation Name Comments Heart Attack Maternal Aunt Pacemaker Maternal Aunt Heart Disease Maternal Cousin Relation Name Status Comments Maternal Aunt Alive Maternal Cousin Social History Tobacco Use Types Packs/Day Years Used Date Smoking Tobacco: Every Day Cigarettes 2 6.1 Started: 12/2018 Passive Smoke Exposure: Current Smokeless Tobacco: Never Tobacco Cessation:Ready to Q uit: No; Counseling Given: No Alcohol Use Standard Drinks/Week Comments Yes 0 (1 standard drink = 0.6 oz pur e alcohol) Feeling Safe Answer Date Recorded Are you in a relationship wi th someone who hurts you emotionally and/or physically? 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[employer] Gender Identity Not on file Sexual Orientation Not on file Last Filed Vital Signs Vital Sign Reading Time Taken Comments Blood Pressure 125/101 01/06/2025 7:51 AM CDT Pulse 81 01/06/2025 7:51 AM CDT Temperature 36.6 C (97.8 F) 01/06/2025 7:51 AM CDT Respiratory Rate 18 01/06/2025 7:51 AM CDT Oxygen Saturation 97% 01/06/2025 7:51 AM CDT Inhaled Oxygen Concentration - - Weight 64.5 kg (142 lb 3.2 oz) 01/05/2025 6:13 A M CDT Height 170.2 cm (5' 7 ) 01/05/2025 6:13 AM CDT Body Mass Index 22.27 01/05/2025 6:13 AM CDT Plan of Treatment Health Maintenance Due Date Last Done Comments HEPATITIS B VACCINES (1 of 3 - 19+ 3-dose series) 12/05/2007 HPV VACCINES (1 - 3-dose SCD M series) 12/05/2015 DTAP/TDAP/TD VACCINES (6 - Tdap) 04/07/2019 04/06/2019, 11/23/1993, 10/29/1991, Additional history exists INFLUENZA VACCINE (#1) 2024 Abdominal Aortic Aneurysm (A AA) Screening Completed 01/01/2025 Procedures Procedure Name Priority Date/Time Associated Diagnosis Comments TELEMETRY REPORT 01/07/2025 3:29 PM CDT UNFRACTIONATED HEPARIN ACTIVITY Timed Study 01/04/2025 4:49 AM CDT COMPREHENSIVE METABOLIC PANEL Routine 01/04/2025 4:49 AM CDT CBC WITH DIFFERENTIAL Routine 01/04/2025 4:49 AM CDT UNFRACTIONATED HEPARIN ACTIVITY Timed Study 01/03/2025 5:19 PM CDT UNFRACTIONATED HEPARIN ACTIVITY Timed Study 01/03/2025 10:13 AM CDT COMPREHENSIVE METABOLIC PANEL Routine 01/03/2025 1:59 AM CDT CBC WITH DIFFERENTIAL Routine 01/03/2025 1:59 AM CDT UNFRACTIONATED HEPARIN ACTIVITY Routine 01/03/2025 1:59 AM CDT UNFRACTIONATED HEPARIN ACTIVITY Timed Study 01/02/2025 5:27 AM CDT COMPREHENSIVE METABOLIC PANEL Routine 01/02/2025 5:27 AM CDT CBC WITH DIFFERENTIAL Routine 01/02/2025 5:27 AM CDT UNFRACTIONATED HEPARIN ACTIVITY Timed Study 01/01/2025 11:16 PM CDT UNFRACTIONATED HEPARIN ACTIVITY Stat 01/01/2025 3:45 PM CDT US ABDOMEN COMPLETE Routine 01/01/2025 8 :23 AM CDT UNFRACTIONATED HEPARIN ACTIVITY Timed Study 01/01/2025 7:49 AM CDT XR CHEST PA OR AP 1 VW Stat 12:13 AM CDT EKG 12-LEAD Routine 12/31/2024 11:46 PM CDT EXTRA TUBE (URINE MUNOZ) Routine 12/31/2024 11:46 PM CDT URINALYSIS W/REFLEX MICROSCOPIC Routine 12/31/2024 11:46 PM CDT TRIGLYCERIDE Routine 12/31/2024 11:29 PM CDT C-REACTIVE PROTEIN Routine 12/31/2024 11 :29 PM CDT ETHANOL LEVEL Stat 12/31/2024 11:29 PM CDT PHOSPHORUS Routine 12/31/2024 11:29 PM CDT MAGNESIUM LEVEL Routine 12/31/2024 11:29 PM CDT LIPASE Routine 12/31/2024 11:29 PM CDT COMPREHENSIVE METABOLIC PANEL Routine 12/31/2024 11:29 PM CDT PROTIME-INR Routine 12/31/2024 11:29 PM CDT CBC WITH DIFFERENTIAL Routine 12/31/2024 11:29 PM CDT COMPREHENSIVE METABOLIC PANEL Routine 12/31/2024 3:32 PM CDT from Last 3 Months Results * TELEMETRY REPORT (01/07/2025 3:29 PM CDT) us Provider Scanning ECG ORDERABLES Final Result * UNFRACTIONATED HEPARIN MONITORING (01/04/2025 4:49 AM CDT) Only the most recent of8 resultswithin the time period is included. ANTI-XA UNFRAC HEP 0.48 See Interpretation IU/mL 01/04/2025 5:17 AM CDT [facility] Blood Venipuncture / Unknown 01/04/2025 4:49 AM CDT 01/04/2025 5:02 AM CDT Narrative [facility] - 01/04/2025 5:17 AM CDT Therapeutic Range: PT/DVT Heparin Protocol 0.3 - 0.7 IU/ml Cardiac Heparin Protocol 0.3 - 0.6 IU/ml The reference range for this test is specific to the anticoagulant and is not appropriate for monitoring patients on a DOAC protocol. us Waldo Bowman MD HEMATOLOGY ORDERABLES Final Resu lt [facility] CLIA # [id number] [facility] [address] [place], [place] [address] * (ABNORMAL) CBC WITH DIFFERENTIAL (01/04/2025 4:49 AM CDT) Only the most recent of4 resultswithin the time period is included. [facility] WBC 5.7 4.5 - 11.0 K/uL 01/04/2025 5:09 AM [facility] RBC 4.33(L) 4.60 - 6.20 M/uL 01/04/2025 5:09 AM [facility] HEMOGLOBIN 13.5(L) 14.0 - 18.0 g/dL 01/04/2025 5:09 AM [facility] HEMATOCRIT 39.2(L) 41.0 - 53.0 % 01/04/2025 5:09 AM [facility] MCV 90.5 84.0 - 103.0 fL 01/04/2025 5:09 AM [facility] MCH 31.2 27.0 - 34.0 pg 01/04/2025 5:09 AM [facility] MCHC 34.4 30.0 - 35.0 g/dL 01/04/2025 5:09 AM [facility] PLATELETS 255 140 - 440 K/uL 01/04/2025 5:09 AM [facility] MPV 10.4 8.9 - 12.8 fL 01/04/2025 5:09 AM [facility] RDW 12.9 11.0 - 14.5 % 01/04/2025 5:09 AM [facility] RDW-STDEV 42.9 37.0 - 54.0 fL 01/04/2025 5:09 AM [facility] NEUTROPHILS 57 42 - 75 % 01/04/2025 5:09 AM [facility] LYMPHOCYTES 28 24 - 44 % 01/04/2025 5:09 AM [facility] MONOCYTES 11(H) 2 - 10 % 01/04/2025 5:09 AM [facility] EOSINOPHILS 3 0 - 7 % 01/04/2025 5:09 AM [facility] BASOPHILS 1 0 - 1 % 01/04/2025 5:09 AM [facility] IMMATURE GRANULOCYTES 0 0 - 2 % 01/04/2025 5:09 AM CDT [facility] NEUTROPHIL ABSOLUTE 3.28 2.00 - 8.00 K/uL 01/04/2025 5:09 AM CDT [facility] LYMPHOCYTE ABSOLUTE 1.60 1.20 - 4.00 K/uL 01/04/2025 5:09 AM CDT [facility] MONOCYTE ABSOLUTE 0.61(H) 0.10 - 0.60 K/uL 01/04/2025 5:09 AM CDT [facility] EOSINOPHIL ABSOLUTE 0.15 0.00 - 0.70 K/uL 01/04/2025 5:09 AM CDT [facility] BASOPHILS ABSOLUTE 0.06 0.00 - 0.20 K/uL 01/04/2025 5:09 AM CDT [facility] IMMATURE GRANULOCYTES ABSOLUTE 0.01 0.00 - 0.10 K/uL 01/04/2025 5:09 AM T [facility] SMEAR REVIEWED: NA - Not Applicable 01/04/2025 5:09 AM T [facility] Blood Venipuncture / Unknown 01/04/2025 4:49 AM CDT 01/04/2025 5:02 AM CDT us Waldo Bowman MD HEMATOLOGY ORDERABLES Final Resu lt [facility] CLIA # [id number] [address] [place] [address] [place] [address] * (ABNORMAL) COMPREHENSIVE METABOLIC PANEL (01/04/2025 4:49 AM CDT) Only the most recent of5 resultswithin the time period is included. SODIUM 139 136 - 145 mmol/L 01/04/2025 5:42 AM CDT [facility] POTASSIUM 3.6 3.5 - 5.1 mmol/L 01/04/2025 5:42 AM CDT [facility] CHLORIDE 103 98 - 107 mmol/L 01/04/2025 5:42 AM [facility] CO2 24 22 - 29 mmol/L 01/04/2025 5:42 AM [facility] CALCIUM 9.1 8.6 - 10.0 mg/dL 01/04/2025 5:42 AM [facility] BUN 1(L) 6 - 20 mg/dL 01/04/2025 5:42 AM [facility] CREATININE 0.64(L) 0.67 - 1.17 mg/dL 01/04/2025 5:42 AM [facility] GLUCOSE 109(H) 74 - 99 mg/dL 01/04/2025 5:42 AM [facility] TOTAL PROTEIN 6.3(L) 6.4 - 8.3 g/dL 01/04/2025 5:42 AM [facility] ALBUMIN 3.3(L) 3.5 - 5.2 g/dL 01/04/2025 5:42 AM [facility] BILIRUBIN TOTAL 0.3 0.0 - 1.0 mg/dL 01/04/2025 5:42 AM [facility] ALKALINE PHOSPHATASE 90 40 - 129 U/L 01/04/2025 5:42 AM [facility] AST 18 10 - 50 U/L 01/04/2025 5:42 AM [facility] ALT 15 <=50 U/L 01/04/2025 5:42 AM [facility] GFR >60 >=60 mL/min/1. 73 sq meter 01/04/2025 5:42 AM [facility] Comment:eGFR calculated with 2020 CKD-EPI equation. Vegetarian diet, extremely high or low muscle mass, and may affect results. Cystatin C with Glomerular Filtration Rate is a suitable alternative for these patients. ANION GAP 12 9 - 20 mmol/L 01/04/2025 5:42 AM [facility] Blood Venipuncture / Unknown 01/04/2025 4:49 AM CDT 01/04/2025 5:08 AM CDT us Waldo Bowman MD CHEMISTRY ORDERABLES Final Resul t [facility] CLIA # [id number] [address] [facility] [place] [address] * US ABDOMEN COMPLETE (01/01/2025 8:23 AM CDT) Anatomical Region Laterality Modality Abdomen Ultrasound 01/01/2025 8:23 AM CDT Impressions 01/01/2025 8:47 AM CDT IMPRESSION: Please see below. US ABDOMEN COMPLETE, 01/01/2025 8:23 AM. REASON FOR EXAM: Pancreatitis;Epigastric Pain. DIAGNOSIS: See Reason for Exam. COMPARISON: 12/31/2024. TECHNIQUE: Multiplanar real-time ultrasonography of the abdomen using munoz-scale imaging, supplemented by color and spectral Doppler as needed. FINDINGS: * Liver: Liver is borderline enlarged. No discrete hepatic lesion is identified. Increased hepatic parenchymal echogenicity may indicate underlying hepatic steatosis. * Gallbladder: Normal. No stones, wall thickening or pericholecystic fluid collections. No sonographic Alvse's sign. * Biliary: No intra- or extra-hepatic ductal dilatation. Common bile duct measures 3.7 mm. * Spleen: Normal size, contour, and echo texture without focal lesions. Maximal dimension = 9.1 cm. * Pancreas: Obscured by bowel gas. * Kidneys: No perinephric fluid, or hydronephrosis. No focal masses are identified. Right kidney measures 11.2 cm. Left kidney measures 10.1 cm. * Peritoneum: No ascites. * Imaged Aorta/IVC: The visualized aorta and IVC are within normal limits. ++++++++++++++++++++ IMPRESSION: 1. Pancreatitis involving the tail the pancreas is unable to be evaluated due to overlying bowel gas and inability to image the pancreas. 2. Splenic vein thrombosis seen on the outside CT performed yesterday, not seen on this exam. 3. Borderline hepatomegaly and underlying hepatic steatosis. Narrative Procedure Note Aurelio Kelley MD - 01/01/2025 IMPRESSION: Please see below. US ABDOMEN COMPLETE, 01/01/2025 8:23 AM. REASON FOR EXAM: Pancreatitis;Epigastric Pain. DIAGNOSIS: See Reason for Exam. COMPARISON: 12/31/2024. TECHNIQUE: Multiplanar real-time ultrasonography of the abdomen using munoz-scale imaging, supplemented by color and spectral Doppler as needed. FINDINGS: * Liver: Liver is borderline enlarged. No discrete hepatic lesion is identified. Increased hepatic parenchymal echogenicity may indicate underlying hepatic steatosis. * Gallbladder: Normal. No stones, wall thickening or pericholecystic fluid collections. No sonographic Alves's sign. * Biliary: No intra- or extra-hepatic ductal dilatation. Common bile duct measures 3.7 mm. * Spleen: Normal size, contour, and echo texture without focal lesions. Maximal dimension = 9.1 cm. * Pancreas: Obscured by bowel gas. * Kidneys: No perinephric fluid, or hydronephrosis. No focal masses are identified. Right kidney measures 11.2 cm. Left kidney measures 10.1 cm. * Peritoneum: No ascites. * Imaged Aorta/IVC: The visualized aorta and IVC are within normal limits. ++++++++++++++++++++ IMPRESSION: 1. Pancreatitis involving the tail the pancreas is unable to be evaluated due to overlying bowel gas and inability to image the pancreas. 2. Splenic vein thrombosis seen on the outside CT performed yesterday, not seen on this exam. 3. Borderline hepatomegaly and underlying hepatic steatosis. Hugo Owen MD US ORDERABLES Final Result * XR CHEST PA OR AP 1 VW (01/01/2025 12:13 AM CDT) Anatomical Region Laterality Modality Chest Computed Radiogr aphy 01/01/2025 12:1 3 AM CDT Impressions 01/01/2025 2:38 AM CDT IMPRESSION: No acute cardiopulmonary abnormality identified. MACRO: None Narrative 01/01/2025 2:38 AM CDT EXAMINATION: XR CHEST PA OR AP 1 VW CLINICAL HISTORY: ASSOCIATED DIAGNOSIS: Fever ORDERING PROVIDER: HUGO OWEN [employer] NOTE: COMPARISON: None FINDINGS: Lines, tubes, and devices: None. Lungs and pleura: No focal pulmonary consolidation, effusion or pneumothorax. Cardiomediastinal silhouette: Normal cardiomediastinal silhouette. Musculoskeletal: Remote right rib fractures. No acute osseous abnormality. Procedure Note Cem Moreno MD - 01/01/2025 EXAMINATION: XR CHEST PA OR AP 1 VW CLINICAL HISTORY: ASSOCIATED DIAGNOSIS: Fever ORDERING PROVIDER: HUGO OWEN [employer] NOTE: COMPARISON: None FINDINGS: Lines, tubes, and devices: None. Lungs and pleura: No focal pulmonary consolidation, effusion or pneumothorax. Cardiomediastinal silhouette: Normal cardiomediastinal silhouette. Musculoskeletal: Remote right rib fractures. No acute osseous abnormality. IMPRESSION: No acute cardiopulmonary abnormality identified. 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1990 Requested By: Order Number: [id number] Dianna MD: Brian Soliman Measurements Intervals Warren Rate: 64 P: 20 AZ: 118 QRS: 76 QRSD: 74 T: 41 QT: 416 QTc: 429 Interpretive Statements Normal sinus rhythm Normal ECG Electronically Signed On 01-01-2025 6:47:33 CDT by Brian Soliman Procedure Note Brian Soliman MD - 01/01/2025 [place] [address] Test Date: 2024-12-31 Pat Name: LAUREEN VILLANUEVA Department: 12 Room: [facility] 02 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: Male 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: [id number] : 1990 Requested By: Order Number: [id number] Reading MD: Brian Soliman Measurements Intervals Warren Rate: 64 P: 20 AZ: 118 QRS: 76 QRSD: 74 T: 41 QT: 416 QTc: 429 Interpretive Statements Normal sinus rhythm Normal ECG Electronically Signed On 01-01-2025 6:47:33 CDT by Brian Soliman Hugo Owen MD ECG ORDERABLES Final Result Performing Organization Address City/[facility]/ZIP Co de Phone Number INTERFACE SYSTEM Refer to clinic/hospital department * EXTRA TUBE (URINE MUNOZ) (12/31/2024 11:46 PM CDT) Urine URINE SPECIMEN OBTAINED BY CLEAN CATCH PROCEDURE / Unknown Collection / Unknown 12/31/2024 11:46 PM CDT 01/01/2025 12:07 AM CDT Hugo Owen MD URINE ORDERABLES Final Resul t Performing Organization Address [facility] de Phone Number [facility] CLIA # [id number] [address] [place] [address] * (ABNORMAL) URINALYSIS WITH REFLEX MICROSCOPIC (12/31/2024 11:46 PM CDT) COLOR UA Yellow Pale to Dark Yellow 01/01/2025 12:13 AM CDT [facility] CLARITY UA Clear Clear 01/01/2025 12:13 AM CDT [facility] SPECIFIC GRAVITY UA 1.024 1.003 - 1.035 01/01/2025 12:13 AM T [facility] PH UA 6.0 5.0 - 8.0 01/01/2025 12:13 AM CDT [facility] LEUKOCYTE ESTERASE UA Negative Negative 01/01/2025 12:13 AM T [facility] NITRITE UA Negative Negative 01/01/2025 12:13 AM T [facility] PROTEIN UA Negative Negative 01/01/2025 12:13 AM T [facility] GLUCOSE UA Negative Negative 01/01/2025 12:13 AM CDT [facility] KETONES UA 2+(A) Negative 01/01/2025 12:13 AM CDT [facility] UROBILINOGEN UA <2.0 <2.0 mg/dL 12:13 AM CDT [facility] BILIRUBIN UA Negative Negative 01/01/2025 12:13 AM CDT [facility] BLOOD UA Negative Negative 01/01/2025 12:13 AM CDT [facility] Urine URINE SPECIMEN OBTAINED BY CLEAN CATCH PROCEDURE / Unknown Collection / Unknown 12/31/2024 11:46 PM CDT 01/01/2025 12:07 AM CDT us Hugo Owen MD URINE ORDERABLES Final Resul t [facility] CLIA # [id number] [address] [place] [address] * (ABNORMAL) PROTIME-INR (12/31/2024 11:29 PM CDT) PROTIME 15.0(H) 12.7 - 14.9 Seconds 01/01/2025 12:00 AM CDT [facility] INR 1.1 0.8 - 1.2 01/01/2025 12:00 AM CDT [facility] Blood Venipuncture / Unknown 12/31/2024 11:29 PM CDT 12/31/2024 11:39 PM CDT Narrative [facility] - 01/01/2025 12:00 AM CDT Expected Values for INR: DVT/PE Goal INR 2.5; range 2.0 - 3.0 Valve Replacement Tissue Goal INR 2.5; range 2.0 - 3.0 Valve Replacement Mechanical Goal INR 3.0; range 2.5 - 3.5 POST-DE Goal INR 2.5; range 2.0 - 3.0 or Goal INR 3.0; range 2.5 - 3.5 Atrial Fibrillation Goal INR 2.5; range 2.0 - 3.0 Ischemic Stroke Goal INR 2.5; range 2.0 - 3.0 Hugo Owen MD HEMATOLOGY ORDERABLES Final Result Performing Organization Address [facility] Co de Phone Number [facility] CLIA # [id number] [address] [address] [place] [address] * (ABNORMAL) C-REACTIVE PROTEIN (12/31/2024 11:29 PM CDT) CRP 5.1(H) 0.0 - 5.0 mg/L 01/01/2025 12:13 AM CDT [facility] Blood Venipuncture / Unknown 12/31/2024 11:29 PM CDT 12/31/2024 11:39 PM CDT Hugo Owen MD CHEMISTRY ORDERABLES Final R esult Performing Organization Address [facility] de Phone Number [facility] CLIA # [id number] [address] [address] * TRIGLYCERIDE (12/31/2024 11:29 PM CDT) TRIGLYCERIDE 120 <150 mg/dL 01/01/2025 12:51 AM CDT [facility] Blood Venipuncture / Unknown 12/31/2024 11:29 PM CDT 12/31/2024 11:39 PM CDT Narrative [facility] - 01/01/2025 12:51 AM CDT TRIGLYCERIDES mg/dL Normal < 150 Borderline High 150 - 199 High 200 - 499 Very High >= 500 Based on AHA/NCEP Guidelines. Hugo Owen MD CHEMISTRY ORDERABLES Final R esult Performing Organization Address [facility] Co de Phone Number [facility] CLIA # [id number] [address] [facility] [place], [place] [address] * PHOSPHORUS (12/31/2024 11:29 PM CDT) [facility] PHOSPHORUS 3.1 2.5 - 4.5 mg/dL 01/01/2025 12:13 AM CDT [facility] Blood Venipuncture / Unknown 12/31/2024 11:29 PM CDT 12/31/2024 11:39 PM CDT Hugo Owen MD CHEMISTRY ORDERABLES Final R esult Performing Organization Address City/[facility]/ZIP Co de Phone Number [facility] CLIA # [id number] [address] [facility] [place] [address] * MAGNESIUM LEVEL (12/31/2024 11:29 PM CDT) [facility] MAGNESIUM 1.7 1.6 - 2.6 mg/dL 01/01/2025 12:13 AM CDT [facility] Blood Venipuncture / Unknown 12/31/2024 11:29 PM CDT 12/31/2024 11:39 PM CDT Hugo Owen MD CHEMISTRY ORDERABLES Final R esult [facility] CLIA # [id number] [address] [facility] [place] [address] * (ABNORMAL) LIPASE (12/31/2024 11:29 PM CDT) [facility] LIPASE 79(H) 13 - 60 U/L 01/01/2025 12:13 AM CDT [facility] Blood Venipuncture / Unknown 12/31/2024 11:29 PM CDT 12/31/2024 11:39 PM CDT Hugo Owen MD CHEMISTRY ORDERABLES Final R esult Performing Organization Address City/[facility] Co de Phone Number [facility] CLIA # [id number] [address] [address] * ETHANOL LEVEL (12/31/2024 11:29 PM CDT) ETHANOL <10.10 <10.10 mg/dL 01/01/2025 12:13 AM CDT [facility] ETHANOL % <0.01 <=0.01 %w/v 01/01/2025 12:13 AM CDT [facility] Blood Venipuncture / Unknown 12/31/2024 11:29 PM CDT 12/31/2024 11:39 PM CDT Hugo Owen MD CHEMISTRY ORDERABLES Final R esult Performing Organization Address [facility] Co de Phone Number [facility] CLIA # [id number] [address] [address] from Last 3 Months Insurance RX [employer] (INTERNAL) [facility] [employer] Commercial MEDICAID [place] Advance Directives For more information, please contact: [phone] * Full Code (Latest Code Status on File) Date Activated Date Inactivated Comments 12/31/2024 11:21 PM 01/06/2025 2:18 PM Care Teams Spinning Frame Changer Relationship Specialty Start Date End Date Jose Julien MD PCP - General Family Practice 12/17/19
--- OUTSIDE RECORDS SUMMARY | 2025-01-19 08:50 | XMS_ITS | Encounter Summary ---
Author Organization [facility] Address 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[employer] Gender Identity Not on file Sexual Orientation Not on file documented as of this encounter Plan of Treatment Not on file documented as of this encounter Procedures Procedure Name Priority Date/Time Associated Diagnosis Comments COMPREHENSIVE METABOLIC PANEL Routine 12/31/2024 3:32 PM CDT documented in this encounter Results * COMPREHENSIVE METABOLIC PANEL (12/31/2024 3:32 PM CDT) Blood us Abstract Provider CHEMISTRY ORDERABLES Final Res ult documented in this encounter Visit Diagnoses Not on filedocumented in this encounter Care Teams Wharf Attendant Relationship Specialty Start Date End Date Jose Julien MD PCP - General Family Practice 12/17/19 documented as of this encounter
[2025-01-19 08:51] VITALS: BP 159/114; PULSE 78; RESP 17; TEMP 36.9; O2SAT 99; BMI 22.8
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
[2025-01-19 09:05] LABS: Hematocrit 43.7 % (37-53); Hemoglobin 14.40 g/dL (11.27-16.99); Mean Corpuscular HGB Conc 33.0 g/dL (30-55); Mean Corpuscular Hemoglobin 30.4 pg (27-33); Mean Corpuscular Volume 92.2 fl (82-101); Nucleated Red Blood Cells % 0 %; Platelet Count 270 10^3/cmm (157-399); Red Blood Count 4.74 10^6/uL (3.85-5.65); White Blood Count 7.28 10^3/uL (3.29-11.43)
[2025-01-19] MEDS: morphine 4 mg/mL SDV 1 mL IVP (09:08)
[2025-01-19] MEDS: ondansetron 2 mg/ML SDV 2 mL 4 MG IVP (09:08)
[2025-01-19 09:20] LABS: Alanine Aminotransferase 17 U/L (0-41); Albumin Level 4.0 g/dL (3.5-5.2); Alkaline Phosphatase 99 U/L (40-130); Anion Gap 15.4 (5-19); Aspartate Amino Transferase 33 U/L (0-40); Blood Urea Nitrogen 7 mg/dL (6-20); Calcium 9.0 mg/dL (8.5-10.5); Carbon Dioxide 23 mmol/L (22-29); Chloride 106 mmol/L (98-107); Creatinine Clr Calc Pharmacy 191.0988; Globulin 3.2 g/dL (1.3-4.6); Glucose 108 mg/dL (65-115); Lipase 59 U/L (13-60); Osmolality Calculated 289 mOsm/kg (285-295); Potassium 4.4 mmol/L (3.5-5.1); Sodium 140 mmol/L (136-145); Total Protein 7.2 g/dL (6.6-8.7)
== END 2025-01-19 09:46 | disposition home or self-care (01) ==
PROVIDERS: Emergency Provider Emergency Medicine; PCP Family Medicine
DX: R10.9 Unspecified abdominal pain (principal); Z79.01 Long term (current) use of anticoagulants; Z72.0 Tobacco use; I10 Essential (primary) hypertension
CPT/HCPCS: 36415; 80053; 83690; 85025; 96361; 96374; 96375; 99284; J2270; J2405; J7030

== ENCOUNTER 2025-01-31 18:51 | Emergency (ER) | payer MEDICAID, SELFPAY ==
--- OUTSIDE RECORDS SUMMARY | 2025-01-31 18:56 | XMS_ITS | Clinical Summary ---
Author Organization [facility] Address [address] [facility] Attn: Epic Prelude ADT RHINA MONTES [address] Care Team Providers Care Tv Host Name Role Phone Jose Julien MD Primary [...] daily. 30 Tablet 5 02/07/20 25 Active oxyCODONE (ROXICODONE) 5 mg tabletIndications :Alcohol-induced acute pancreatitis with uninfected necrosis Take 1 Tablet (5 mg) by mouth every 6 hours as needed for Moderate or Severe Pain. Max Daily Amount: 20 mg 20 Tablet 01/06/2025 11:34 AM CDT 5 01/12/20 25 pantoprazole (Protonix) 40 mg Tablet, Delayed Release (E.C.) Take 1 Tablet (40 mg) by mouth daily for 14 days. 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 us Waldo Bowman MD HEMATOLOGY ORDERABLES Final Resu lt [facility] CLIA # [id number] [address] [address] [place] [address] * (ABNORMAL) CBC WITH DIFFERENTIAL (01/04/2025 4:49 AM CDT) Only the most recent of4 resultswithin the time period is included. [facility] WBC 5.7 4.5 - 11.0 K/uL 01/04/2025 5:09 AM [facility] RBC 4.33(L) 4.60 - 6.20 M/uL 01/04/2025 5:09 AM [facility] HEMOGLOBIN 13.5(L) 14.0 - 18.0 g/dL 01/04/2025 5:09 AM [facility] HEMATOCRIT 39.2(L) 41.0 - 53.0 % 01/04/2025 5:09 AM [facility] MCV 90.5 84.0 - 103.0 fL 01/04/2025 5:09 AM [facility] MCH 31.2 27.0 - 34.0 pg 01/04/2025 5:09 AM [facility] MCHC 34.4 30.0 - 35.0 g/dL 01/04/2025 5:09 AM [facility] PLATELETS 255 140 - 440 K/uL 01/04/2025 5:09 AM [facility] MPV 10.4 8.9 - 12.8 fL 01/04/2025 5:09 AM [facility] RDW 12.9 11.0 - 14.5 % 01/04/2025 5:09 AM [facility] RDW-STDEV 42.9 37.0 - 54.0 fL 01/04/2025 5:09 AM [facility] [employer] [facility] NEUTROPHILS 57 42 - 75 % 01/04/2025 5:09 AM [facility] LYMPHOCYTES 28 24 - 44 % 01/04/2025 5:09 AM [facility] [employer] [facility] MONOCYTES 11(H) 2 - 10 % 01/04/2025 5:09 AM [facility] [employer] [facility] EOSINOPHILS 3 0 - 7 % 01/04/2025 5:09 AM [facility] [employer] [facility] BASOPHILS 1 0 - 1 % 01/04/2025 5:09 AM CDT [facility] IMMATURE GRANULOCYTES 0 0 - 2 % 01/04/2025 5:09 AM CDT [facility] NEUTROPHIL ABSOLUTE 3.28 2.00 - 8.00 K/uL 01/04/2025 5:09 AM CDT [facility] LYMPHOCYTE ABSOLUTE 1.60 1.20 - 4.00 K/uL 01/04/2025 5:09 AM CDT [facility] MONOCYTE ABSOLUTE 0.61(H) 0.10 - 0.60 K/uL 01/04/2025 5:09 AM CDT [facility] EOSINOPHIL ABSOLUTE 0.15 0.00 - 0.70 K/uL 01/04/2025 5:09 AM CDT [facility] BASOPHILS ABSOLUTE 0.06 0.00 - 0.20 K/uL 01/04/2025 5:09 AM CDT [facility] IMMATURE GRANULOCYTES ABSOLUTE 0.01 0.00 - 0.10 K/uL 01/04/2025 5:09 AM T [facility] SMEAR REVIEWED: NA - Not Applicable 01/04/2025 5:09 AM [facility] Blood Venipuncture / Unknown 01/04/2025 4:49 AM CDT 01/04/2025 5:02 AM CDT us Waldo Bowman MD HEMATOLOGY ORDERABLES Final Resu lt [facility] CLIA # [id number] [address] [place] [address] [place] [address] * (ABNORMAL) COMPREHENSIVE METABOLIC PANEL (01/04/2025 4:49 AM CDT) Only the most recent of5 resultswithin the time period is included. SODIUM 139 136 - 145 mmol/L 01/04/2025 5:42 AM CDT [facility] POTASSIUM 3.6 3.5 - 5.1 mmol/L 01/04/2025 5:42 AM [facility] CHLORIDE 103 98 - 107 mmol/L 01/04/2025 5:42 AM [facility] CO2 24 22 - 29 mmol/L 01/04/2025 5:42 AM [facility] CALCIUM 9.1 8.6 - 10.0 mg/dL 01/04/2025 5:42 AM [facility] BUN 1(L) 6 - 20 mg/dL 01/04/2025 5:42 AM [facility] CREATININE 0.64(L) 0.67 - 1.17 mg/dL 01/04/2025 5:42 AM [facility] GLUCOSE 109(H) 74 - 99 mg/dL 01/04/2025 5:42 AM [facility] TOTAL PROTEIN 6.3(L) 6.4 - 8.3 g/dL 01/04/2025 5:42 AM [facility] ALBUMIN 3.3(L) 3.5 - 5.2 g/dL 01/04/2025 5:42 AM [facility] BILIRUBIN TOTAL 0.3 0.0 - 1.0 mg/dL 01/04/2025 5:42 AM [facility] ALKALINE PHOSPHATASE 90 40 - 129 U/L 01/04/2025 5:42 AM [facility] AST 18 10 - 50 U/L 01/04/2025 5:42 AM [facility] ALT 15 <=50 U/L 01/04/2025 5:42 AM [facility] GFR >60 >=60 mL/min/1. 73 sq meter 01/04/2025 5:42 AM [facility] Comment:eGFR calculated with 2020 CKD-EPI equation. Vegetarian diet, extremely high or low muscle mass, and may affect results. Cystatin C with Glomerular Filtration Rate is a suitable alternative for these patients. 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: [id number] : 1990 Requested By: Order Number: [id number] Dianna MD: Brian Soliman Measurements Intervals Vian Rate: 64 P: 20 IL: 118 QRS: 76 QRSD: 74 T: 41 QT: 416 QTc: 429 Interpretive Statements Normal sinus rhythm Normal ECG Electronically Signed On 01-01-2025 6:47:33 CDT by Brian Soliman Procedure Note Brian Soliman MD - 01/01/2025 [place] [address] Test Date: 2024-12-31 Pat Name: LAUREEN VILLANUEVA Department: 12 Room: On license of [facility] 02 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: Male 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: [id number] : 1990 Requested By: Order Number: [id number] Reading MD: Brian Soliman Measurements Intervals Vian Rate: 64 P: 20 IL: 118 QRS: 76 QRSD: 74 T: 41 QT: 416 QTc: 429 Interpretive Statements Normal sinus rhythm Normal ECG Electronically Signed On 01-01-2025 6:47:33 CDT by Brian Soliman Hugo Owen MD ECG ORDERABLES Final Result Performing Organization Address [facility] Co de Phone Number INTERFACE SYSTEM Refer to clinic/hospital department * EXTRA TUBE (URINE MUNOZ) (12/31/2024 11:46 PM CDT) Urine URINE SPECIMEN OBTAINED BY CLEAN CATCH PROCEDURE / Unknown Collection / Unknown 12/31/2024 11:46 PM CDT 01/01/2025 12:07 AM CDT Hugo Owen MD URINE ORDERABLES Final Resul t Performing Organization Address [facility] de Phone Number [facility] CLIA # [id number] [address] [place] [address] * (ABNORMAL) URINALYSIS WITH REFLEX MICROSCOPIC (12/31/2024 11:46 PM CDT) COLOR UA Yellow Pale to Dark Yellow 01/01/2025 12:13 AM CDT [facility] CLARITY UA Clear Clear 01/01/2025 12:13 AM CDT [facility] SPECIFIC GRAVITY UA 1.024 1.003 - 1.035 01/01/2025 12:13 AM CDT [facility] PH UA 6.0 5.0 - 8.0 01/01/2025 12:13 AM CDT [facility] LEUKOCYTE ESTERASE UA Negative Negative 01/01/2025 12:13 AM CDT [facility] NITRITE UA Negative Negative 01/01/2025 12:13 AM T [facility] PROTEIN UA Negative Negative 01/01/2025 12:13 AM CDT [facility] GLUCOSE UA Negative Negative 01/01/2025 12:13 AM CDT [facility] KETONES UA 2+(A) Negative 01/01/2025 12:13 AM CDT [facility] UROBILINOGEN UA <2.0 <2.0 mg/dL 12:13 AM CDT [facility] BILIRUBIN UA Negative Negative 01/01/2025 12:13 AM CDT [facility] BLOOD UA Negative Negative 01/01/2025 12:13 AM CDT [facility] Urine URINE SPECIMEN OBTAINED BY CLEAN CATCH PROCEDURE / Unknown Collection / Unknown 12/31/2024 11:46 PM CDT 01/01/2025 12:07 AM CDT Hugo Owen MD URINE ORDERABLES Final Resul t [facility] CLIA # [id number] [address] [place] [address] * (ABNORMAL) PROTIME-INR (12/31/2024 11:29 PM CDT) PROTIME 15.0(H) 12.7 - 14.9 Seconds 01/01/2025 12:00 AM CDT [facility] INR 1.1 0.8 - 1.2 01/01/2025 12:00 AM CDT [facility] Blood Venipuncture / Unknown 12/31/2024 11:29 PM CDT 12/31/2024 11:39 PM CDT Narrative [facility] - 01/01/2025 12:00 AM CDT Expected Values for INR: DVT/PE Goal INR 2.5; range 2.0 - 3.0 Valve Replacement Tissue Goal INR 2.5; range 2.0 - 3.0 Valve Replacement Mechanical Goal INR 3.0; range 2.5 - 3.5 POST-OH Goal INR 2.5; range 2.0 - 3.0 or Goal INR 3.0; range 2.5 - 3.5 Atrial Fibrillation Goal INR 2.5; range 2.0 - 3.0 Ischemic Stroke Goal INR 2.5; range 2.0 - 3.0 Hugo Owen MD HEMATOLOGY ORDERABLES Final Result Performing Organization Address [facility] Co de Phone Number [facility] [employer] [facility] CLIA # [id number] [address] [address] [place] [address] * (ABNORMAL) C-REACTIVE PROTEIN (12/31/2024 11:29 PM CDT) CRP 5.1(H) 0.0 - 5.0 mg/L 01/01/2025 12:13 AM CDT [facility] [employer] [facility] Blood Venipuncture / Unknown 12/31/2024 11:29 PM CDT 12/31/2024 11:39 PM CDT Hugo Owen MD CHEMISTRY ORDERABLES Final R esult Performing Organization Address [facility] de Phone Number [facility] [employer] [facility] CLIA # [id number] [facility] [address] * TRIGLYCERIDE (12/31/2024 11:29 PM CDT) TRIGLYCERIDE 120 <150 mg/dL 01/01/2025 12:51 AM CDT [facility] [employer] [facility] Blood Venipuncture / Unknown 12/31/2024 11:29 PM CDT 12/31/2024 11:39 PM CDT Narrative [facility] [employer] [facility] - 01/01/2025 12:51 AM CDT TRIGLYCERIDES mg/dL Normal < 150 Borderline High 150 - 199 High 200 - 499 Very High >= 500 Based on AHA/NCEP Guidelines. Hugo Owen MD CHEMISTRY ORDERABLES Final R esult Performing Organization Address [facility] Co de Phone Number [facility] CLIA # [id number] [address] [address] [place], [place] [address] * PHOSPHORUS (12/31/2024 11:29 PM CDT) PHOSPHORUS 3.1 2.5 - 4.5 mg/dL 01/01/2025 12:13 AM CDT [facility] Blood Venipuncture / Unknown 12/31/2024 11:29 PM CDT 12/31/2024 11:39 PM CDT Hugo Owen MD CHEMISTRY ORDERABLES Final R esult Performing Organization Address [facility]/ZIP Co de Phone Number [facility] CLIA # [id number] [address] [address] * MAGNESIUM LEVEL (12/31/2024 11:29 PM CDT) Pathologist [facility] MAGNESIUM 1.7 1.6 - 2.6 mg/dL 01/01/2025 12:13 AM CDT [facility] Blood Venipuncture / Unknown 12/31/2024 11:29 PM CDT 12/31/2024 11:39 PM CDT Hugo Owen MD CHEMISTRY ORDERABLES Final R esult [facility] CLIA # [id number] [address] [address] [place] [address] * (ABNORMAL) LIPASE (12/31/2024 11:29 PM CDT) LIPASE 79(H) 13 - 60 U/L 01/01/2025 12:13 AM CDT [facility] Blood Venipuncture / Unknown 12/31/2024 11:29 PM CDT 12/31/2024 11:39 PM CDT Hugo Owen MD CHEMISTRY ORDERABLES Final R esult Performing Organization Address [facility] Co de Phone Number [facility] [employer] [facility] CLIA # [id number] [address] [address] [place] [address] * ETHANOL LEVEL (12/31/2024 11:29 PM CDT) Pathologist [facility] ETHANOL <10.10 <10.10 mg/dL 01/01/2025 12:13 AM CDT [facility] ETHANOL % <0.01 <=0.01 %w/v 01/01/2025 12:13 AM CDT [facility] Blood Venipuncture / Unknown 12/31/2024 11:29 PM CDT 12/31/2024 11:39 PM CDT Hugo Owen MD CHEMISTRY ORDERABLES Final R esult Performing Organization Address [facility] Co de Phone Number [facility] CLIA # [id number] [address] [address] from Last 3 Months Insurance RX [employer] (INTERNAL) [facility] [employer] RX [employer] Commercial MEDICAID [place] Advance Directives For more information, please contact: [phone] * Full Code (Latest Code Status on File) Date Activated Date Inactivated Comments 12/31/2024 11:21 PM 01/06/2025 2:18 PM Care Teams Tv Host Relationship Specialty Start Date End Date Jose Julien MD PCP - General Family Practice 12/17/19
[2025-01-31 19:00] VITALS: BP 155/103; PULSE 91; RESP 18; TEMP 36.7; O2SAT 95
[2025-01-31 20:14] LABS: Hematocrit 43.9 % (37-53); Hemoglobin 15.00 g/dL (11.27-16.99); Mean Corpuscular HGB Conc 34.2 g/dL (30-55); Mean Corpuscular Hemoglobin 31.5 pg (27-33); Mean Corpuscular Volume 92.2 fl (82-101); Nucleated Red Blood Cells % 0 %; Platelet Count 308 10^3/cmm (157-399); Red Blood Count 4.76 10^6/uL (3.85-5.65); White Blood Count 10.14 10^3/uL (3.29-11.43)
[2025-01-31 20:55] LABS: Alanine Aminotransferase 14 U/L (0-41); Albumin Level 4.0 g/dL (3.5-5.2); Alkaline Phosphatase 90 U/L (40-130); Anion Gap 17.3 (5-19); Aspartate Amino Transferase 14 U/L (0-40); Blood Urea Nitrogen 13 mg/dL (6-20); Calcium 9.3 mg/dL (8.5-10.5); Carbon Dioxide 23 mmol/L (22-29); Chloride 105 mmol/L (98-107); Creatinine Clr Calc Pharmacy 119.1096; Globulin 3.1 g/dL (1.3-4.6); Glucose 102 mg/dL (65-115); Lipase 83 U/L (13-60); Osmolality Calculated 292 mOsm/kg (285-295); Potassium 4.3 mmol/L (3.5-5.1); Sodium 141 mmol/L (136-145); Total Protein 7.1 g/dL (6.6-8.7)
--- NOTE | 2025-01-31 23:00 | CTR_ITS ---
PROCEDURE INFORMATION: Exam: CT Abdomen And Pelvis With Contrast Exam date and time: 01/31/2025 11:41 PM Age: 34 years old Clinical indication: Abdominal pain; C/O epigastric pain. Splenic vein thrombus noted on CT dated 12/31/2024. History of recurrent pancreatitis. ; Additional info: Diffuse abd pain TECHNIQUE: Imaging protocol: Computed tomography of the abdomen and pelvis with contrast. Radiation optimization: All CT scans at this facility use at least one of these dose optimization techniques: automated exposure control; mA and/or kV adjustment per patient size (includes targeted exams where dose is matched to clinical indication); or iterative reconstruction. Contrast material: OMNI 350; Contrast volume: 100 ml; Contrast route: INTRAVENOUS (IV); COMPARISON: CT abdomen pelvis w con* [id number] 12/31/2024 7:20 AM RADIATION DOSE METRICS: Total DLP (mGy-cm): 363.8 FINDINGS: Liver: Fatty infiltration versus 3rd inflow artifact is noted at the anterior falciform ligament. The liver is otherwise within normal limits. Gallbladder and biliary ducts: Normal. No calcified stones. No ductal dilation. Pancreas: Acute peripancreatic fat stranding is identified, mostly involving the body and tail. Findings are persistent across multiple priors dating back to 12/20/2024. Interval increase in size of in appearance necrotic collection in the pancreatic tail measuring up to 2.4 x 2.8 cm (series 3, image 18). This collection extends beyond the pancreatic parenchyma, abutting the greater curvature of the stomach and the splenic flexure rim enhancement is noted to the collection. Of note, the collection wraps around the superior margin of the splenic flexure (series 5, image 23) with question of a rim enhancing mucosal fluid collection in the colon (series 5, image 25). Spleen: Normal. No splenomegaly. Adrenal glands: Normal. No mass. Kidneys and ureters: Subcentimeter hypodensities in the right kidney are too small to accurately characterize, statistically representing simple cysts. Stomach and bowel: Circumferential wall thickening and mucosal hyperenhancement of the splenic flexure, secondary to the above-mentioned pancreatic inflammation. Colonic diverticulosis without evidence of acute diverticulitis is present. The large and small bowel are otherwise unremarkable without obstruction or wall thickening. Appendix: The appendix is normal. Intraperitoneal space: Unremarkable. No free air. No significant fluid collection. Vasculature: Persistent thrombosis of the mid/distal splenic vein. Lymph nodes: Unremarkable. No enlarged lymph nodes. Urinary bladder: Unremarkable as visualized. Reproductive: Unremarkable as visualized. Bones/joints: Degenerative joint and disc disease is seen in the imaged spine. Soft tissues: Unremarkable. CT/CT abdomen pelvis w con* [id number] IMPRESSION: 1. Progression of pancreatitis, now concerning for walled-off necrosis of the pancreatic tail. Question of pseudocyst versus abscess formation extending along the greater curvature of the stomach and involving the colonic splenic flexure with concern for intramural colonic abscess measuring up to 1.5 cm. No evidence of gas within this collection to suggest fistulous communication at this time. 2. 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 3. Colonic diverticulosis without evidence of acute diverticulitis. COMMENTS: Consistent with the [employer]'s Incidental Findings Committee white paper (J Am Dotty Radiol 2018): Any incidental renal lesion less than 1 cm or classified as too small to characterize, or any incidental cystic renal lesion characterized as simple-appearing, is likely benign. No follow-up imaging is recommended for these lesions per consensus recommendations based on imaging criteria.
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
[2025-01-31] MEDS: ondansetron 2 mg/ML SDV 2 mL 4 MG IVP (23:41)
[2025-01-31] MEDS: HYDROmorphone 0.5 MG/0.5 ML INJ 1 MG IVP (23:41)
[2025-01-31 23:42] LABS: Glucose Urine UA Negative (Normal); Nitrate Urine Negative (Negative); Specific Gravity, Urine 1.024 (1.005-1.030)
[2025-01-31] MEDS: iohexol 350 mg/mL 500 mL Btl (per mL) IV (23:44)
[2025-01-31 23:46] VITALS: BP 128/79; PULSE 83; O2SAT 96
[2025-01-31 23:47] LABS: Add Urine Microscopic? YES
[2025-02-01 00:04] VITALS: PULSE 76; O2SAT 92
[2025-02-01] MEDS: HYDROmorphone 0.5 MG/0.5 ML INJ IVP (01:47)
[2025-02-01 03:13] VITALS: PULSE 71; O2SAT 90
[2025-02-01 03:30] LABS: Alcohol Level 62 mg/dL (0-10)
[2025-02-01 05:17] LABS: INR 1.10 (0.8-1.2); Prothrombin Time 15.00 SECONDS (12.1-14.9)
[2025-02-01 07:33] VITALS: BP 149/74; PULSE 93; RESP 16; O2SAT 98
[2025-02-01] MEDS: HYDROmorphone 0.5 MG/0.5 ML INJ 1 MG IVP (07:34)
== END 2025-02-01 07:35 | disposition short-term general hospital (02) ==
PROVIDERS: Physician Assistant; Emergency Provider Emergency Medicine; PCP Family Medicine
DX: K85.90 Acute pancreatitis without necrosis or infection, unspecified (principal); I10 Essential (primary) hypertension; Z72.0 Tobacco use
CPT/HCPCS: 36415; 74177; 80053; 80307; 81001; 83690; 85025; 85610; 96374; 96375; 96376; 99285; J1171; J2405; J7030

== ENCOUNTER 2025-02-12 13:31 | Outpatient (CLI) | payer MEDICAID, SELFPAY ==
--- NOTE | 2025-02-12 13:37 | CTR_ITS ---
PROCEDURE INFORMATION: Exam: CT Abdomen And Pelvis With Contrast Exam date and time: 02/12/2025 2:13 PM Age: 34 years old Clinical indication: Condition or disease; Pancreatic condition; Follow up acute pancreatitis, having surgery mar 24 TECHNIQUE: Imaging protocol: Computed tomography of the abdomen and pelvis with contrast. Radiation optimization: All CT scans at this facility use at least one of these dose optimization techniques: automated exposure control; mA and/or kV adjustment per patient size (includes targeted exams where dose is matched to clinical indication); or iterative reconstruction. Contrast material: OMNI 350; Contrast volume: 100 ml; Contrast route: INTRAVENOUS (IV); COMPARISON: CT abdomen pelvis w con* [id number] 01/31/2025 11:41 PM RADIATION DOSE METRICS: Total DLP (mGy-cm): 283.28 FINDINGS: Liver: Normal. No mass. Gallbladder and biliary ducts: Normal. No calcified stones. No ductal dilation. Pancreas: Small fluid collection adjacent to the tail of the pancreas measures 2.4 x 1.3 cm, previously 2.8 x 1.6 cm by my measurement. Subtle thin peripheral enhancement is seen. Minimal fluid with fat stranding is seen in the left upper quadrant between the stomach and colon. Spleen: Normal. No splenomegaly. Adrenal glands: Normal. No mass. Kidneys and ureters: There are bilateral renal hypodensities that are too small to characterize. Stomach and bowel: Moderate wall thickening of the colon at the splenic flexure is again noted although slightly decreased. Appendix: No evidence of appendicitis. Intraperitoneal space: Unremarkable. No free air. No significant fluid collection. Vasculature: Splenic vein is poorly visualized and may be partially thrombosed. Lymph nodes: Unremarkable. No enlarged lymph nodes. Urinary bladder: Diffuse bladder wall thickening. Reproductive: Unremarkable as visualized. Bones/joints: Unremarkable. No acute fracture. Soft tissues: Unremarkable. CT/CT abdomen pelvis w con* [id number] IMPRESSION: 1. 2.4 x 1.3 cm fluid collection adjacent to the pancreatic tail which is decreased in size. This may represent a small walled-off collection. 2. Focal wall thickening of the colon at the splenic flexure is slightly decreased. This may be secondary to the pancreatitis. No intramural abscess. 3. Other findings as detailed above. COMMENTS: Consistent with the [place] [employer]'s Incidental Findings Committee white paper (J Am Dotty Radiol 2018): Any incidental renal lesion less than 1 cm or classified as too small to characterize, or any incidental cystic renal lesion characterized as simple-appearing, is likely benign. No follow-up imaging is recommended for these lesions per consensus recommendations based on imaging criteria.
[2025-02-12] MEDS: iohexol 350 mg/mL 500 mL Btl (per mL) IV (14:17)
== END 2025-02-12 13:32 | disposition home or self-care (01) ==
LOC: RAD 13:34
PROVIDERS: PCP Family Medicine; Visit Provider Surgery
DX: K85.90 Acute pancreatitis without necrosis or infection, unspecified (principal); R93.89 Abnormal findings on diagnostic imaging of other specified body structures; K63.89 Other specified diseases of intestine; N28.89 Other specified disorders of kidney and ureter; N32.89 Other specified disorders of bladder
CPT/HCPCS: 74177

== ENCOUNTER 2025-02-12 15:37 | Emergency (ER) | payer MEDICAID, SELFPAY ==
--- OUTSIDE RECORDS SUMMARY | 2025-02-12 15:46 | XMS_ITS | Encounter Summary ---
Author Organization [facility] Address 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
--- OUTSIDE RECORDS SUMMARY | 2025-02-12 15:46 | XMS_ITS | Encounter Summary ---
Author Organization [email or web address] Address 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
--- OUTSIDE RECORDS SUMMARY | 2025-02-12 15:46 | XMS_ITS | Clinical Summary ---
Author Organization [facility] Address [address] [facility] Attn: Epic Prelude ADT [place]INA [place]ONT[place] [address] Care Team Providers Care Press Operator Carbon Blocks Name Role Phone Jose Julien MD Primary [...] 60 Tablet 1 01/06/2025 11:34 AM CDT 01/06/2025 03/07/20 25 Active thiamine mononitrate (VITAMIN B-1) 100 mg tablet Take 1 Tablet (100 mg) by mouth daily. 30 Tablet 01/07/2025 02/07/20 25 pantoprazole (Protonix) 40 mg Tablet, Delayed Release (E.C.) Take 1 Tablet (40 mg) by mouth daily for 14 days. 14 Tablet 01/06/2025 11:34 AM CDT 01/06/2025 01/21/20 25 Active Problems Problem Noted Date Diagnosed Date Alcohol-induced acute pancreatitis with uninfect ed necrosis 01/01/2025 Splenic vein thrombosis 01/01/2025 Alcohol abuse 01/01/2025 Tobacco use 01/01/2025 Encounter for tobacco use cessation counseling 0 01/01/2025 HTN (hypertension), benign 01/01/2025 Hypokalemia 01/01/2025 Encounters Date Type Department Care Team Description 02/05/2025 External Device Data STL ABSTRACTION Provider, Abstract 02/05/2025 External Device Data ST[facility] ABSTRACTION Provider, Abstract 02/04/2025 External Device Data [facility] ABSTRACTION Provider, Abstract 01/21/2025 External Device Data STL ABSTRACTION Provider, Abstract 01/08/2025 Orders Only [facility] HIM [address] [place] [id number] Provider, Abstract 01/07/2025 External Device Data [facility] ABSTRACTION Provider, Abstract 01/07/2025 External Device Data [facility] ABSTRACTION Provider, Abstract 01/07/2025 External Device Data ST[facility] ABSTRACTION Provider, Abstract 01/01/2025 Travel 12/31/2024 11:04 PM CDT - 01/06/2025 12:13 PM CDT Hospital Encounter [facility] 3D Medical Telemetry [address] [place] [id number] Yasmani Breen MD Sundaram, MD Gracie Arias Jamie, MD Raavi, MD Stacey Ascencio, MD [...] on file 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 Pathologist [facility] ANTI-XA UNFRAC HEP 0.48 See Interpretation IU/mL 01/04/2025 5:17 AM CDT [facility] Blood Venipuncture / Unknown 01/04/2025 4:49 AM CDT 01/04/2025 5:02 AM CDT Narrative [facility] - 01/04/2025 5:17 AM CDT Therapeutic Range: PT/DVT Heparin Protocol 0.3 - 0.7 IU/ml Cardiac Heparin Protocol 0.3 - 0.6 IU/ml The reference range for this test is specific to the anticoagulant and is not appropriate for monitoring patients on a DOAC protocol. us Waldo Bowman MD HEMATOLOGY ORDERABLES Final Resu lt [facility] CLIA # [id number] [address] [place] [address] * (ABNORMAL) CBC WITH DIFFERENTIAL (01/04/2025 4:49 AM CDT) Only the most recent of4 resultswithin the time period is included. Pathologist [facility] WBC 5.7 4.5 - 11.0 K/uL 01/04/2025 5:09 AM [facility] RBC 4.33(L) 4.60 - 6.20 M/uL 01/04/2025 5:09 AM [facility] HEMOGLOBIN 13.5(L) 14.0 - 18.0 g/dL 01/04/2025 5:09 AM [facility] HEMATOCRIT 39.2(L) 41.0 - 53.0 % 01/04/2025 5:09 AM [facility] MCV 90.5 84.0 - 103.0 fL 01/04/2025 5:09 AM [facility] MCH 31.2 27.0 - 34.0 pg 01/04/2025 5:09 AM [facility] MCHC 34.4 30.0 - 35.0 g/dL 01/04/2025 5:09 AM [facility] PLATELETS 255 140 - 440 K/uL 01/04/2025 5:09 AM [facility] MPV 10.4 8.9 - 12.8 fL 01/04/2025 5:09 AM [facility] RDW 12.9 11.0 - 14.5 % 01/04/2025 5:09 AM [facility] RDW-STDEV 42.9 37.0 - 54.0 fL 01/04/2025 5:09 AM [facility] NEUTROPHILS 57 42 - 75 % 01/04/2025 5:09 AM [facility] LYMPHOCYTES 28 24 - 44 % 01/04/2025 5:09 AM [facility] MONOCYTES 11(H) 2 - 10 % 01/04/2025 5:09 AM [facility] EOSINOPHILS 3 0 - 7 % 01/04/2025 5:09 AM [facility] BASOPHILS 1 0 - 1 % 01/04/2025 5:09 AM [facility] IMMATURE GRANULOCYTES 0 0 - 2 % 01/04/2025 5:09 AM CDT [facility] NEUTROPHIL ABSOLUTE 3.28 2.00 - 8.00 K/uL 01/04/2025 5:09 AM CDT [facility] LYMPHOCYTE ABSOLUTE 1.60 1.20 - 4.00 K/uL 01/04/2025 5:09 AM CDT [facility] MONOCYTE ABSOLUTE 0.61(H) 0.10 - 0.60 K/uL 01/04/2025 5:09 AM CDT [facility] EOSINOPHIL ABSOLUTE 0.15 0.00 - 0.70 K/uL 01/04/2025 5:09 AM CDT [facility] BASOPHILS ABSOLUTE 0.06 0.00 - 0.20 K/uL 01/04/2025 5:09 AM CDT [facility] IMMATURE GRANULOCYTES ABSOLUTE 0.01 0.00 - 0.10 K/uL 01/04/2025 5:09 AM T [facility] SMEAR REVIEWED: NA - Not Applicable 01/04/2025 5:09 AM T [facility] Blood Venipuncture / Unknown 01/04/2025 4:49 AM CDT 01/04/2025 5:02 AM CDT us Waldo Bowman MD HEMATOLOGY ORDERABLES Final Resu lt [facility] CLIA # [id number] [address] [place] [id number] * (ABNORMAL) COMPREHENSIVE METABOLIC PANEL (01/04/2025 4:49 AM CDT) Only the most recent of5 resultswithin the time period is included. SODIUM 139 136 - 145 mmol/L 01/04/2025 5:42 AM CDT [facility] POTASSIUM 3.6 3.5 - 5.1 mmol/L 01/04/2025 5:42 AM CDT [facility] CHLORIDE 103 98 - 107 mmol/L 01/04/2025 5:42 AM [facility] CO2 24 22 - 29 mmol/L 01/04/2025 5:42 AM [facility] CALCIUM 9.1 8.6 - 10.0 mg/dL 01/04/2025 5:42 AM [facility] BUN 1(L) 6 - 20 mg/dL 01/04/2025 5:42 AM [facility] CREATININE 0.64(L) 0.67 - 1.17 mg/dL 01/04/2025 5:42 AM [facility] GLUCOSE 109(H) 74 - 99 mg/dL 01/04/2025 5:42 AM [facility] TOTAL PROTEIN 6.3(L) 6.4 - 8.3 g/dL 01/04/2025 5:42 AM [facility] ALBUMIN 3.3(L) 3.5 - 5.2 g/dL 01/04/2025 5:42 AM [facility] BILIRUBIN TOTAL 0.3 0.0 - 1.0 mg/dL 01/04/2025 5:42 AM [facility] ALKALINE PHOSPHATASE 90 40 - 129 U/L 01/04/2025 5:42 AM [facility] AST 18 10 - 50 U/L 01/04/2025 5:42 AM [facility] ALT 15 <=50 U/L 01/04/2025 5:42 AM [facility] GFR >60 >=60 mL/min/1. 73 sq meter 01/04/2025 5:42 AM [facility] Comment:eGFR calculated with 2020 CKD-EPI equation. Vegetarian diet, extremely high or low muscle mass, and may affect results. Cystatin C with Glomerular Filtration Rate is a suitable alternative for these patients. ANION GAP 12 9 - 20 mmol/L 01/04/2025 5:42 AM [facility] Blood Venipuncture / Unknown 01/04/2025 4:49 AM T 01/04/2025 5:08 AM CDT us Waldo Bowman MD CHEMISTRY ORDERABLES Final Resul t [facility] # [id number] [id number] [facility] [place] [address] * US ABDOMEN COMPLETE (01/01/2025 8:23 AM [...] 3. Borderline hepatomegaly and underlying hepatic steatosis. us Hugo Owen MD US ORDERABLES Final Result [...] INTERFACE SYSTEM - 01/01/2025 6:[place] [address] Test Date: 2024-12-31 Pat Name: LAUREEN CHARLOTTE Department: 12 Room: [address] [place] [address] Gender: Male Psychiatry Physician: [id number] : 1990 Requested By: Order Number: [id number] [place] : Brian Soliman Measurements Intervals [place] Rate: 64 P: 20 AL: 118 QRS: 76 QRSD: 74 T: 41 QT: 416 QTc: 429 Interpretive Statements Normal sinus rhythm Normal ECG Electronically Signed On 01-01-2025 6:47:33 CDT by Brian Soliman Procedure Note Brian Soliman MD - 01/01/2025 [place] [address] Test Date: 2024-12-31 Pat Name: LAUREEN VILLANUEVA Department: 12 Room: [address] [place] [address] Gender: Male Psychiatry Physician: [id number] : 1990 Requested By: Order Number: [id number] Dianna VELEZ: Brian Soliman Measurements Intervals [place] Rate: 64 P: 20 AL: 118 QRS: 76 QRSD: 74 T: 41 QT: 416 QTc: 429 Interpretive Statements Normal sinus rhythm Normal ECG Electronically Signed On 01-01-2025 6:47:33 CDT by Brian Soliman Hugo Owen MD ECG ORDERABLES Final Result Performing Organization Address [facility] Co de Phone Number INTERFACE SYSTEM Refer to clinic/hospital department * EXTRA TUBE (URINE MUNOZ) (12/31/2024 11:46 PM CDT) Urine URINE SPECIMEN OBTAINED BY CLEAN CATCH PROCEDURE / Unknown Collection / Unknown 12/31/2024 11:46 PM CDT 01/01/2025 12:07 AM CDT Hugo Owen MD URINE ORDERABLES Final Resul t Performing Organization Address [facility] de Phone Number [facility] CLIA # [id number] [facility] [address] * (ABNORMAL) URINALYSIS WITH REFLEX MICROSCOPIC (12/31/2024 11:46 PM CDT) COLOR UA Yellow Pale to Dark Yellow 01/01/2025 12:13 AM CDT [facility] CLARITY UA Clear Clear 01/01/2025 12:13 AM CDT [facility] SPECIFIC GRAVITY UA 1.024 1.003 - 1.035 01/01/2025 12:13 AM CDT [facility] PH UA 6.0 5.0 - 8.0 01/01/2025 12:13 AM CDT [facility] LEUKOCYTE ESTERASE UA Negative Negative 01/01/2025 12:13 AM CDT [facility] NITRITE UA Negative Negative 01/01/2025 12:13 AM CDT [facility] PROTEIN UA Negative Negative 01/01/2025 12:13 AM CDT [facility] GLUCOSE UA Negative Negative 01/01/2025 12:13 AM CDT [facility] KETONES UA 2+(A) Negative 01/01/2025 12:13 AM CDT [facility] UROBILINOGEN UA <2.0 <2.0 mg/dL 12:13 AM CDT [facility] BILIRUBIN UA Negative Negative 01/01/2025 12:13 AM CDT [facility] BLOOD UA Negative Negative 01/01/2025 12:13 AM CDT [facility] Urine URINE SPECIMEN OBTAINED BY CLEAN CATCH PROCEDURE / Unknown Collection / Unknown 12/31/2024 11:46 PM CDT 01/01/2025 12:07 AM CDT us Hugo Owen MD URINE ORDERABLES Final Resul t [facility] CLIA # [id number] [address] [place] [id number] * (ABNORMAL) PROTIME-INR (12/31/2024 11:29 PM CDT) PROTIME 15.0(H) 12.7 - 14.9 Seconds 01/01/2025 12:00 AM CDT [facility] INR 1.1 0.8 - 1.2 01/01/2025 12:00 AM CDT [facility] Blood Venipuncture / Unknown 12/31/2024 11:29 PM CDT 12/31/2024 11:39 PM CDT Narrative [facility] - 01/01/2025 12:00 AM CDT Expected Values for INR: DVT/PE Goal INR 2.5; range 2.0 - 3.0 Valve Replacement Tissue Goal INR 2.5; range 2.0 - 3.0 Valve Replacement Mechanical Goal INR 3.0; range 2.5 - 3.5 POST-NJ Goal INR 2.5; range 2.0 - 3.0 or Goal INR 3.0; range 2.5 - 3.5 Atrial Fibrillation Goal INR 2.5; range 2.0 - 3.0 Ischemic Stroke Goal INR 2.5; range 2.0 - 3.0 Hugo Owen MD HEMATOLOGY ORDERABLES Final Result Performing Organization Address [facility]/ZIP Co de Phone Number [facility] CLIA # [id number] [address] [place] [address] * (ABNORMAL) C-REACTIVE PROTEIN (12/31/2024 11:29 PM CDT) CRP 5.1(H) 0.0 - 5.0 mg/L 01/01/2025 12:13 AM CDT [facility] Blood Venipuncture / Unknown 12/31/2024 11:29 PM CDT 12/31/2024 11:39 PM CDT Hugo Owen MD CHEMISTRY ORDERABLES Final R esult Performing Organization Address [facility] Co de Phone Number [facility] CLIA # [id number] [address] [address] * TRIGLYCERIDE (12/31/2024 11:29 PM CDT) Pathologist [facility] TRIGLYCERIDE 120 <150 mg/dL 01/01/2025 12:51 AM CDT [facility] Blood Venipuncture / Unknown 12/31/2024 11:29 PM CDT 12/31/2024 11:39 PM CDT Narrative [facility] - 01/01/2025 12:51 AM CDT TRIGLYCERIDES mg/dL Normal < 150 Borderline High 150 - 199 High 200 - 499 Very High >= 500 Based on AHA/NCEP Guidelines. Hugo Owen MD CHEMISTRY ORDERABLES Final R esult Performing Organization Address [facility] Co de Phone Number [facility] CLIA # [id number] [address] [place] [address] * PHOSPHORUS (12/31/2024 11:29 PM CDT) PHOSPHORUS 3.1 2.5 - 4.5 mg/dL 01/01/2025 12:13 AM CDT [facility] Blood Venipuncture / Unknown 12/31/2024 11:29 PM CDT 12/31/2024 11:39 PM CDT Hugo Owen MD CHEMISTRY ORDERABLES Final R esult Performing Organization Address [facility]/ZIP Co de Phone Number [facility] CLIA # [id number] [address] [address] * MAGNESIUM LEVEL (12/31/2024 11:29 PM CDT) Pathologist [facility] MAGNESIUM 1.7 1.6 - 2.6 mg/dL 01/01/2025 12:13 AM CDT [facility] Blood Venipuncture / Unknown 12/31/2024 11:29 PM CDT 12/31/2024 11:39 PM CDT Hugo Owen MD CHEMISTRY ORDERABLES Final R esult Performing Organization Address [facility]/ZIP Co de Phone Number [facility] CLIA # [id number] [address] [address] * (ABNORMAL) LIPASE (12/31/2024 11:29 PM CDT) Pathologist [facility] LIPASE 79(H) 13 - 60 U/L 01/01/2025 12:13 AM CDT [facility] Blood Venipuncture / Unknown 12/31/2024 11:29 PM CDT 12/31/2024 11:39 PM CDT Hugo Owen MD CHEMISTRY ORDERABLES Final R esult Performing Organization Address [facility]/ZIP Co de Phone Number [facility] CLIA # [id number] [id number] [place] [address] * ETHANOL LEVEL (12/31/2024 11:29 PM CDT) ETHANOL <10.10 <10.10 mg/dL 01/01/2025 12:13 AM CDT [facility] ETHANOL % <0.01 <=0.01 %w/v 01/01/2025 12:13 AM CDT [facility] Blood Venipuncture / Unknown 12/31/2024 11:29 PM CDT 12/31/2024 11:39 PM CDT Hugo Owen MD CHEMISTRY ORDERABLES Final R esult Performing Organization Address [facility] Co de Phone Number [facility] CLIA # [id number] [address] [address] from Last 3 Months Insurance RX [employer] (INTERNAL) [facility] [employer] Commercial MEDICAID [place] Advance Directives For more information, please contact: [phone] * Full Code (Latest Code Status on File) Date Activated Date Inactivated Comments 12/31/2024 11:21 PM 01/06/2025 2:18 PM Care Teams Press Operator [employer] Relationship Specialty Start Date End Date Jose Julien MD PCP - General Family Practice 12/17/19
--- OUTSIDE RECORDS SUMMARY | 2025-02-12 15:46 | XMS_ITS | Encounter Summary ---
Author Organization [employer] Address 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
[2025-02-12 15:49] VITALS: BP 115/82; PULSE 87; RESP 18; TEMP 37; O2SAT 96
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
[2025-02-12 17:12] LABS: Hematocrit 42.6 % (37-53); Hemoglobin 14.20 g/dL (11.27-16.99); Mean Corpuscular HGB Conc 33.3 g/dL (30-55); Mean Corpuscular Hemoglobin 30.8 pg (27-33); Mean Corpuscular Volume 92.4 fl (82-101); Nucleated Red Blood Cells % 0 %; Platelet Count 352 10^3/cmm (157-399); Red Blood Count 4.61 10^6/uL (3.85-5.65); White Blood Count 8.37 10^3/uL (3.29-11.43)
[2025-02-12 17:32] LABS: Alanine Aminotransferase 17 U/L (0-41); Albumin Level 3.9 g/dL (3.5-5.2); Alkaline Phosphatase 113 U/L (40-130); Anion Gap 15.8 (5-19); Aspartate Amino Transferase 14 U/L (0-40); Blood Urea Nitrogen 9 mg/dL (6-20); Calcium 9.1 mg/dL (8.5-10.5); Carbon Dioxide 25 mmol/L (22-29); Chloride 101 mmol/L (98-107); Creatinine Clr Calc Pharmacy 136.1253; Globulin 3.1 g/dL (1.3-4.6); Glucose 100 mg/dL (65-115); Lipase 62 U/L (13-60); Osmolality Calculated 285 mOsm/kg (285-295); Potassium 3.8 mmol/L (3.5-5.1); Sodium 138 mmol/L (136-145); Total Protein 7.0 g/dL (6.6-8.7)
[2025-02-12] MEDS: HYDROcodone-acetaminophen 10-325 mg Tablet 1 TAB PO (17:54)
[2025-02-12 18:04] VITALS: BP 117/83; PULSE 89; O2SAT 97
== END 2025-02-12 18:05 | disposition home or self-care (01) ==
PROVIDERS: Emergency Provider Emergency Medicine; PCP Family Medicine
DX: R10.9 Unspecified abdominal pain (principal); Z79.01 Long term (current) use of anticoagulants; Z72.0 Tobacco use; I10 Essential (primary) hypertension
CPT/HCPCS: 36415; 80053; 83690; 85025; 99283; J9999

== ENCOUNTER 2025-02-17 22:49 | Emergency (ER) | payer MEDICAID, SELFPAY ==
[2025-02-17 22:50] VITALS: BP 168/95; PULSE 87; RESP 18; TEMP 36.6; O2SAT 98; BMI 21.9
--- OUTSIDE RECORDS SUMMARY | 2025-02-17 22:53 | XMS_ITS | Clinical Summary ---
Author Organization [facility] Address [address] Attn: Epic Prelude ADT RHINA MONTES [phone] Care Team Providers Care Refrigerating Engineer Name Role Phone Jose Julien MD Primary [...] STL ABSTRACTION Provider, Abstract 01/08/2025 Orders Only [facility] HIM [address] [place] [id number] Provider, Abstract 01/07/2025 External Device Data STL ABSTRACTION Provider, Abstract 01/07/2025 External Device Data STL ABSTRACTION Provider, Abstract 01/07/2025 External Device Data STL ABSTRACTION Provider, Abstract 01/01/2025 Travel 12/31/2024 11:04 PM CDT - 01/06/2025 12:13 PM CDT Hospital Encounter [facility] 3D Medical Telemetry [address] [place] [id number] Yasmani Breen MD Sundaram, MD Gracie Arias [...] on file 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 Pathologist [facility] ANTI-XA UNFRAC HEP 0.48 See Interpretation IU/mL 01/04/2025 5:17 AM CDT [facility] Blood Venipuncture / Unknown 01/04/2025 4:49 AM CDT 01/04/2025 5:02 AM CDT Narrative [facility] - 01/04/2025 5:17 AM CDT Therapeutic Range: PT/DVT Heparin Protocol 0.3 - 0.7 IU/ml Cardiac Heparin Protocol 0.3 - 0.6 IU/ml The reference range for this test is specific to the anticoagulant and is not appropriate for monitoring patients on a DOAC protocol. us Waldo Bowman MD HEMATOLOGY ORDERABLES Final Resu lt [facility] CLIA # [id number] [address] [place] [place] [address] * (ABNORMAL) CBC WITH DIFFERENTIAL (01/04/2025 4:49 AM CDT) Only the most recent of4 resultswithin the time period is included. Pathologist [facility] WBC 5.7 4.5 - 11.0 K/uL 01/04/2025 5:09 AM [facility] RBC 4.33(L) 4.60 - 6.20 M/uL 01/04/2025 5:09 AM [facility] HEMOGLOBIN 13.5(L) 14.0 - 18.0 g/dL 01/04/2025 5:09 AM [facility] HEMATOCRIT 39.2(L) 41.0 - 53.0 % 01/04/2025 5:09 AM [facility] [place] [facility] MCV 90.5 84.0 - 103.0 fL 01/04/2025 5:09 AM [facility] [place] [facility] MCH 31.2 27.0 - 34.0 pg 01/04/2025 5:09 AM [facility] [place] [facility] MCHC 34.4 30.0 - 35.0 g/dL 01/04/2025 5:09 AM [facility] PLATELETS 255 140 - 440 K/uL 01/04/2025 5:09 AM [facility] [place] [facility] MPV 10.4 8.9 - 12.8 fL 01/04/2025 5:09 AM [facility] RDW 12.9 11.0 - 14.5 % 01/04/2025 5:09 AM [facility] [place] [facility] RDW-STDEV 42.9 37.0 - 54.0 fL 01/04/2025 5:09 AM [facility] NEUTROPHILS 57 42 - 75 % 01/04/2025 5:09 AM [facility] [place] [facility] LYMPHOCYTES 28 24 - 44 % 01/04/2025 5:09 AM [facility] [place] [facility] MONOCYTES 11(H) 2 - 10 % 01/04/2025 5:09 AM [facility] [place] [facility] EOSINOPHILS 3 0 - 7 % 01/04/2025 5:09 AM [facility] [place] [facility] BASOPHILS 1 0 - 1 % 01/04/2025 5:09 AM [facility] IMMATURE GRANULOCYTES 0 0 - 2 % 01/04/2025 5:09 AM CDT [facility] NEUTROPHIL ABSOLUTE 3.28 2.00 - 8.00 K/uL 01/04/2025 5:09 AM CDT [facility] LYMPHOCYTE ABSOLUTE 1.60 1.20 - 4.00 K/uL 01/04/2025 5:09 AM CDT [facility] MONOCYTE ABSOLUTE 0.61(H) 0.10 - 0.60 K/uL 01/04/2025 5:09 AM CDT [facility] EOSINOPHIL ABSOLUTE 0.15 0.00 - 0.70 K/uL 01/04/2025 5:09 AM CDT [facility] BASOPHILS ABSOLUTE 0.06 0.00 - 0.20 K/uL 01/04/2025 5:09 AM CDT [facility] IMMATURE GRANULOCYTES ABSOLUTE 0.01 0.00 - 0.10 K/uL 01/04/2025 5:09 AM T [facility] SMEAR REVIEWED: NA - Not Applicable 01/04/2025 5:09 AM T [facility] Blood Venipuncture / Unknown 01/04/2025 4:49 AM CDT 01/04/2025 5:02 AM CDT us Waldo Bowman MD HEMATOLOGY ORDERABLES Final Resu lt [facility] CLIA # [id number] [address] [place] [place] [id number] * (ABNORMAL) COMPREHENSIVE METABOLIC PANEL (01/04/2025 4:49 AM CDT) Only the most recent of5 resultswithin the time period is included. SODIUM 139 136 - 145 mmol/L 01/04/2025 5:42 AM CDT [facility] POTASSIUM 3.6 3.5 - 5.1 mmol/L 01/04/2025 5:42 AM CDT [facility] CHLORIDE 103 98 - 107 mmol/L 01/04/2025 5:42 AM [facility] CO2 24 22 - 29 mmol/L 01/04/2025 5:42 AM [facility] CALCIUM 9.1 8.6 - 10.0 mg/dL 01/04/2025 5:42 AM [facility] BUN 1(L) 6 - 20 mg/dL 01/04/2025 5:42 AM [facility] CREATININE 0.64(L) 0.67 - 1.17 mg/dL 01/04/2025 5:42 AM [facility] GLUCOSE 109(H) 74 - 99 mg/dL 01/04/2025 5:42 AM [facility] TOTAL PROTEIN 6.3(L) 6.4 - 8.3 g/dL 01/04/2025 5:42 AM [facility] ALBUMIN 3.3(L) 3.5 - 5.2 g/dL 01/04/2025 5:42 AM [facility] BILIRUBIN TOTAL 0.3 0.0 - 1.0 mg/dL 01/04/2025 5:42 AM [facility] ALKALINE PHOSPHATASE 90 40 - 129 U/L 01/04/2025 5:42 AM [facility] AST 18 10 - 50 U/L 01/04/2025 5:42 AM [facility] ALT 15 <=50 U/L 01/04/2025 5:42 AM [facility] GFR >60 >=60 mL/min/1. 73 sq meter 01/04/2025 5:42 AM [facility] Comment:eGFR calculated with 2020 CKD-EPI equation. Vegetarian diet, extremely high or low muscle mass, and may affect results. Cystatin C with Glomerular Filtration Rate is a suitable alternative for these patients. 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: [id number] : 1990 Requested By: Order Number: [id number] Reading : Brian Soliman Measurements Intervals Trent Rate: 64 P: 20 MN: 118 QRS: 76 QRSD: 74 T: 41 QT: 416 QTc: 429 Interpretive Statements Normal sinus rhythm Normal ECG Electronically Signed On 01-01-2025 6:47:33 CDT by Brian Soliman Procedure Note Brian Soliman MD - 01/01/2025 [place] [address] Test Date: 2024-12-31 Pat Name: LAUREEN VILLANUEVA Department: 12 Room: [address] [place] [address] Gender: Male 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 Consultant: [id number] : 1990 Requested By: Order Number: [id number] Dianna VELEZ: Brian Soliman Measurements Intervals Trent Rate: 64 P: 20 MN: 118 QRS: 76 QRSD: 74 T: 41 QT: 416 QTc: 429 Interpretive Statements Normal sinus rhythm Normal ECG Electronically Signed On 01-01-2025 6:47:33 CDT by Brian Soliman Hugo Owen MD ECG ORDERABLES Final Result Performing Organization Address City/[facility] Co de Phone Number INTERFACE SYSTEM Refer to clinic/hospital department * EXTRA TUBE (URINE MUNOZ) (12/31/2024 11:46 PM CDT) Urine URINE SPECIMEN OBTAINED BY CLEAN CATCH PROCEDURE / Unknown Collection / Unknown 12/31/2024 11:46 PM CDT 01/01/2025 12:07 AM CDT Hugo Owen MD URINE ORDERABLES Final Resul t Performing Organization Address [facility] de Phone Number [facility] CLIA # [id number] [facility] [address] * (ABNORMAL) URINALYSIS WITH REFLEX MICROSCOPIC (12/31/2024 11:46 PM CDT) COLOR UA Yellow Pale to Dark Yellow 01/01/2025 12:13 AM CDT [facility] CLARITY UA Clear Clear 01/01/2025 12:13 AM CDT [facility] SPECIFIC GRAVITY UA 1.024 1.003 - 1.035 01/01/2025 12:13 AM CDT [facility] PH UA 6.0 5.0 - 8.0 01/01/2025 12:13 AM CDT [facility] LEUKOCYTE ESTERASE UA Negative Negative 01/01/2025 12:13 AM CDT [facility] NITRITE UA Negative Negative 01/01/2025 12:13 AM CDT [facility] PROTEIN UA Negative Negative 01/01/2025 12:13 AM CDT [facility] GLUCOSE UA Negative Negative 01/01/2025 12:13 AM CDT [facility] KETONES UA 2+(A) Negative 01/01/2025 12:13 AM CDT [facility] UROBILINOGEN UA <2.0 <2.0 mg/dL 12:13 AM CDT [facility] BILIRUBIN UA Negative Negative 01/01/2025 12:13 AM CDT [facility] BLOOD UA Negative Negative 01/01/2025 12:13 AM CDT [facility] Urine URINE SPECIMEN OBTAINED BY CLEAN CATCH PROCEDURE / Unknown Collection / Unknown 12/31/2024 11:46 PM CDT 01/01/2025 12:07 AM CDT us Hugo Owen MD URINE ORDERABLES Final Resul t [facility] CLIA # [id number] [address] [place] [place] [address] * (ABNORMAL) PROTIME-INR (12/31/2024 11:29 PM CDT) PROTIME 15.0(H) 12.7 - 14.9 Seconds 01/01/2025 12:00 AM CDT [facility] INR 1.1 0.8 - 1.2 01/01/2025 12:00 AM CDT [facility] Blood Venipuncture / Unknown 12/31/2024 11:29 PM CDT 12/31/2024 11:39 PM CDT Narrative [facility] - 01/01/2025 12:00 AM CDT Expected Values for INR: DVT/PE Goal INR 2.5; range 2.0 - 3.0 Valve Replacement Tissue Goal INR 2.5; range 2.0 - 3.0 Valve Replacement Mechanical Goal INR 3.0; range 2.5 - 3.5 POST-IL Goal INR 2.5; range 2.0 - 3.0 or Goal INR 3.0; range 2.5 - 3.5 Atrial Fibrillation Goal INR 2.5; range 2.0 - 3.0 Ischemic Stroke Goal INR 2.5; range 2.0 - 3.0 Hugo Owen MD HEMATOLOGY ORDERABLES Final Result Performing Organization Address [facility]/ZIP Co de Phone Number [facility] [place] [facility] CLIA # [id number] [address] [place] [address] * (ABNORMAL) C-REACTIVE PROTEIN (12/31/2024 11:29 PM CDT) CRP 5.1(H) 0.0 - 5.0 mg/L 01/01/2025 12:13 AM CDT [facility] Blood Venipuncture / Unknown 12/31/2024 11:29 PM CDT 12/31/2024 11:39 PM CDT Hugo Owen MD CHEMISTRY ORDERABLES Final R esult Performing Organization Address [facility] Co de Phone Number [facility] [place] [facility] CLIA # [id number] [address] [address] * TRIGLYCERIDE (12/31/2024 11:29 PM CDT) Pathologist [facility] TRIGLYCERIDE 120 <150 mg/dL 01/01/2025 12:51 AM CDT [facility] Blood Venipuncture / Unknown 12/31/2024 11:29 PM CDT 12/31/2024 11:39 PM CDT Narrative [facility] [place] [facility] - 01/01/2025 12:51 AM CDT TRIGLYCERIDES mg/dL Normal < 150 Borderline High 150 - 199 High 200 - 499 Very High >= 500 Based on AHA/NCEP Guidelines. Hugo Owen MD CHEMISTRY ORDERABLES Final R esult Performing Organization Address [facility] Co de Phone Number [facility] [place] [facility] CLIA # [id number] [address] [place] [address] * PHOSPHORUS (12/31/2024 11:29 PM CDT) PHOSPHORUS 3.1 2.5 - 4.5 mg/dL 01/01/2025 12:13 AM CDT [facility] Blood Venipuncture / Unknown 12/31/2024 11:29 PM CDT 12/31/2024 11:39 PM CDT Hugo Owen MD CHEMISTRY ORDERABLES Final R esult Performing Organization Address City/[facility]/ZIP Co de Phone Number [facility] CLIA # [id number] [address] [address] * MAGNESIUM LEVEL (12/31/2024 11:29 PM CDT) Pathologist [facility] MAGNESIUM 1.7 1.6 - 2.6 mg/dL 01/01/2025 12:13 AM CDT [facility] Blood Venipuncture / Unknown 12/31/2024 11:29 PM CDT 12/31/2024 11:39 PM CDT Hugo Owen MD CHEMISTRY ORDERABLES Final R esult Performing Organization Address City/[facility]/ZIP Co de Phone Number [facility] CLIA # [id number] [address] [address] * (ABNORMAL) LIPASE (12/31/2024 11:29 PM CDT) Pathologist [facility] LIPASE 79(H) 13 - 60 U/L 01/01/2025 12:13 AM CDT [facility] Blood Venipuncture / Unknown 12/31/2024 11:29 PM CDT 12/31/2024 11:39 PM CDT Hugo Owen MD CHEMISTRY ORDERABLES Final R esult Performing Organization Address [facility]/ZIP Co de Phone Number [facility] [place] [facility] CLIA # [id number] [address] [address] [place] [address] * ETHANOL LEVEL (12/31/2024 11:29 PM CDT) ETHANOL <10.10 <10.10 mg/dL 01/01/2025 12:13 AM CDT [facility] [place] [facility] ETHANOL % <0.01 <=0.01 %w/v 01/01/2025 12:13 AM CDT [facility] Blood Venipuncture / Unknown 12/31/2024 11:29 PM CDT 12/31/2024 11:39 PM CDT Hugo Owen MD CHEMISTRY ORDERABLES Final R esult Performing Organization Address [facility] Co de Phone Number [facility] [place] [facility] CLIA # [id number] [address] [address] from Last 3 Months Insurance RX [employer] (INTERNAL) [facility] [employer] RX [employer] Commercial MEDICAID [place] Advance Directives For more information, please contact: [phone] * Full Code (Latest Code Status on File) Date Activated Date Inactivated Comments 12/31/2024 11:21 PM 01/06/2025 2:18 PM Care Teams Refrigerating Engineer Relationship Specialty Start Date End Date Jose Julien MD PCP - General Family Practice 12/17/19
[2025-02-17 23:39] LABS: Glucose Urine UA Negative (Normal); Nitrate Urine Negative (Negative); Specific Gravity, Urine 1.012 (1.005-1.030)
[2025-02-17 23:41] LABS: Add Urine Microscopic? YES
[2025-02-18 03:16] LABS: Hematocrit 45.3 % (37-53); Hemoglobin 14.80 g/dL (11.27-16.99); Mean Corpuscular HGB Conc 32.7 g/dL (30-55); Mean Corpuscular Hemoglobin 30.0 pg (27-33); Mean Corpuscular Volume 91.9 fl (82-101); Nucleated Red Blood Cells % 0 %; Platelet Count 341 10^3/cmm (157-399); Red Blood Count 4.93 10^6/uL (3.85-5.65); White Blood Count 11.48 10^3/uL (3.29-11.43)
[2025-02-18 03:31] LABS: Alanine Aminotransferase 11 U/L (0-41); Albumin Level 4.1 g/dL (3.5-5.2); Alkaline Phosphatase 101 U/L (40-130); Anion Gap 19.2 (5-19); Aspartate Amino Transferase 13 U/L (0-40); Blood Urea Nitrogen 10 mg/dL (6-20); Calcium 9.5 mg/dL (8.5-10.5); Carbon Dioxide 22 mmol/L (22-29); Chloride 102 mmol/L (98-107); Creatinine Clr Calc Pharmacy 156.6288; Globulin 3.1 g/dL (1.3-4.6); Glucose 93 mg/dL (65-115); Lipase 48 U/L (13-60); Osmolality Calculated 287 mOsm/kg (285-295); Potassium 4.2 mmol/L (3.5-5.1); Sodium 139 mmol/L (136-145); Total Protein 7.2 g/dL (6.6-8.7)
[2025-02-18 03:47] VITALS: BP 172/115; PULSE 85; RESP 14; O2SAT 97
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
[2025-02-18 04:18] LABS: Base Excess VBG -2.1 mmol/L (-3.0-3.0); Blood Gas Allen Test Pos; Blood Gas Operator Identificat gerca; Blood Gas Sample Type Venous; HCO3 VBG 22.9 mmol/L (24-28); PCO2 VBG 39.4 mmHg (41-51); PO2 VBG 92.7 mmHg (25-40); Venous Blood Gas Hematocrit 44.9 % (42-52); pH VBG 7.37 (7.32-7.42)
[2025-02-18] MEDS: oxyCODONE 5 mg IR Tab/Cap PO (04:27)
[2025-02-18] MEDS: ondansetron 2 mg/ML SDV 2 mL 4 MG IVP (04:27)
[2025-02-18] MEDS: acetaminophen 1,000 MG/100 ML PIGGYBACK 400 MG IV (04:27)
[2025-02-18 05:18] VITALS: RESP 18; O2SAT 96
[2025-02-18] MEDS: morphine 4 mg/mL SDV 1 mL IVP (05:18)
[2025-02-18 05:54] VITALS: BP 124/86; PULSE 77; RESP 14; O2SAT 94
== END 2025-02-18 05:55 | disposition home or self-care (01) ==
PROVIDERS: Emergency Provider Emergency Medicine; PCP Family Medicine
DX: K86.0 Alcohol-induced chronic pancreatitis (principal); K86.2 Cyst of pancreas; F10.10 Alcohol abuse, uncomplicated; Z79.01 Long term (current) use of anticoagulants; Z72.0 Tobacco use; I10 Essential (primary) hypertension
CPT/HCPCS: 36415; 80053; 81001; 82010; 82803; 83690; 85025; 96365; 96375; 99284; J0131; J2270; J2405; J7030; J9999